=== PATIENT | male | born 1950 | race Caucasian/White ===

== ENCOUNTER 2017-06-03 12:02 | Emergency (ER) | payer OTHER, MEDICARE ==
[~2017-06-03] VITALS: Ht 182.9 cm; Wt 93.4 kg
[~2017-06-03 12:02] MED LIST: ADVAIR 100-501 EACH INH; ADVIL200 MG PO; AMLODIPINE BESYL5 M1 PO; AMLODIPINE10 MG PO; AMOXICILLIN500 M3 PO; ASPIRIN EC81 M1 PO; ATORVASTATIN CA10 MG PO; ATORVASTATIN CA40 M1 PO; BACTRIM DS TAB1 EACH PO; FLEXERIL10 MG PO; FLUTICASONE PRO16 GM NASB; HYDRODIURIL 2525 MG PO; LISINOPRIL40 M1 PO; MULTIVITAMIN1 TAB PO; NAPROSYN375 MG PO; NEURONTIN300 MG PO; NICOTINE PATCH1 EAC3 TOP; NITROGLYCERIN1 EACH TOP; NORFLEX100 MG PO; NORVASC10 M1 PO; OXYCODONE HCL10 M2 PO; OXYCODONE HCL15 M1 PO; PERCOCET 325 MG1 TA2 PO; PERCOCET 325 MG1 TAB PO; PREDNISONE 20MG20 MG PO; PROAIR HFA8.5 GM INH; TAMSULOSIN HCL0.4 M1 PO; TRAMADOL50 MG PO; TRAZODONE HCL100 M1; VITAMIN C1000 M1 PO
[2017-06-03 12:05] VITALS: BP 111/58
[2017-06-03] MEDS ORDERED: FLOMAX0.4 M1 PO (12:45)
[2017-06-03] MEDS ORDERED: AMOXICILLIN875 M1 PO ×2 (12:46→13:13)
[2017-06-03] MEDS ORDERED: BACTRIM DS TAB1 EACH PO ×2 (12:46→13:13)
--- NOTE | 2017-06-03 12:47 | ED SKIN/ALLERGY COMPLAINT ---
History of Present Illness General Chief Complaint: General Adult Stated Complaint: ABSCESS ON FACE Source: patient Exam Limitations: no limitations Vital Signs & Intake/Output Vital Signs & Intake/Output Vital Signs Date Time Temp Pulse Resp B/P B/P Pulse O2 O2 Flow FiO2 Mean Ox Delivery Rate 06/03 1205 98.1 120 20 111/58 97 Room Air Allergies Coded Allergies: NO KNOWN ALLERGIES (NONE 06/03/17) Reconcile Medications Albuterol Sulfate (Proair Hfa) 8.5 GM HFA.AER.AD 2 PUF INH Q6 PRN COPD Amlodipine Besylate (Norvasc) 10 MG TABLET 1 CAP PO DAILY HYPERTENSION Amoxicillin 875 MG TABLET 1 TAB PO BID ABSCESS Amoxicillin 875 MG TABLET 1 TAB PO BID ABSCESS Aspirin (Ecotrin*) 81 MG TABLET.DR 1 TAB PO DAILY HEART/BLOOD (Reported) Atorvastatin Calcium 40 MG TABLET 1 CAP PO DAILY CHOLESTEROL Lisinopril 40 MG TABLET 1 CAP PO DAILY BP Nitroglycerin (Nitroglycerin Patch) 0.4 MG/HOUR PATCH.TD24 1 PAT TOP DAILY CHEST PAIN Please put the patch on for 12 hours only. Then keep off for 12 hours. Oxycodone HCl 15 MG TABLET 1 TAB PO Q8H PAIN (Reported) Sulfamethoxazole/Trimethoprim (Bactrim Ds Tablet) 800 MG-160 MG TABLET 1 TAB PO BID ABSCESS Sulfamethoxazole/Trimethoprim (Bactrim Ds Tablet) 800 MG-160 MG TABLET 1 TAB PO BID ABSCESS Tamsulosin HCl (Flomax) 0.4 MG CAP.ER.24H 0.4 MG PO DAILY BLAD[facility] ( Reported) Triage Note: PT TO ED C/O ABSCESS TO LEFT SIDE OF FACE SINCE TUESDAY 05/30. THINKS HE GOT BIT BY SOMETHING AND THEN SHAVED OVER BITE. AFEBRILE IN TRIAGE. Triage Nurses Notes Reviewed? yes Onset: Abrupt Duration: day(s): Timing: recent history Severity: moderate, severe Location: face No Modifying Factors: none HPI: 67-year-old male comes into the emergency room for further evaluation of left- sided facial pain. Patient reports that he was bitten by something a few days back. He's been experiencing increased swelling and redness and pain left side of his face. Denies any fever chills vomiting. He comes in for further evaluation. Past History Travel History Traveled to [place] past 21 day No Medical History Any Pertinent Medical History? 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 FH: myocardial infarction Hx Contributory? No Review of Systems Review of Systems Constitutional: Reports: no symptoms. EENTM: Reports: no symptoms. Respiratory: Reports: no symptoms. Cardiovascular: Reports: no symptoms. GI: Reports: no symptoms. Genitourinary: Reports: no symptoms. Musculoskeletal: Reports: see HPI. Skin: Reports: see HPI. Neurological/Psychological: Reports: no symptoms. Hematologic/Endocrine: Reports: no symptoms. Immunologic/Allergic: Reports: no symptoms. All Other Systems: Reviewed and Negative Physical Exam Physical Exam General Appearance: well developed/nourished, mild distress Head: atraumatic Eyes: Bilateral: normal appearance. Ears, Nose, Throat: normal ENT inspection, hearing grossly normal Neck: normal inspection Respiratory: no respiratory distress Back: normal inspection Extremities: normal inspection, normal range of motion, no edema Neurologic/Psych: awake, alert, oriented x 3, normal mood/affect Skin: intact, erythema and swelling to left side of face, firm nodule, approximately 3 cm in diameter, open wound with some purulent drainage from the center, Progress Differential Diagnosis: abscess/cellulitis, allergic reaction, contact dermatitis, shingles Plan of Care: Orders Procedure Date/time Status HEAD & NECK CULTURE 06/03 1247 Active Microbiology 06/03 1300 HEAD/NECK: Head/Neck Culture - RECD 06/03 1300 HEAD/NECK: Gram Stain - RECD Departure Departure Disposition: HOME OR SELF CARE Condition: Stable Clinical Impression Primary Impression: Facial abscess Referrals: Salas CORTES,Salas (PCP/Family) Additional Instructions: Take Bactrim and amoxicillin as prescribed. Return in 2 days for wound check. Return sooner if any other concerns worsening symptoms. Please go over all results of today's visit with your primary care doctor. Contact your primary care doctor to let them know you were here in the emergency room. There may be nonspecific findings which may not be related to your visit today here in the emergency room but may require further evaluation and chronic monitoring by your primary care doctor. If you had a laceration today the chance of foreign body always remains. You should follow-up with your primary care doctor for recheck in 3-5 days for a wound check. If you had an x-ray done there is a chance that a fracture could have been missed on initial read and you should follow-up with your primary care doctor for repeat x-rays if symptoms persist. If your blood pressure was elevated here in the emergency room please have rechecked by michel primary care doctor within the next 48. If you were prescribed a narcotic here in the emergency room or any type of controlled substances you're not allowed to drive while taking this medication or operate any type of heavy machinery. Narcotics can make you feel lightheaded dizziness nausea and can cause constipation. You may need to sampler pickup a stool softener. Thank you for choosing [facility] emergency room. Please return to the emergency room immediately if you have any other concerns worsening of symptoms. Departure Forms: Customer Survey General Discharge Information Prescriptions: Current Visit Scripts Sulfamethoxazole/Trimethoprim (Bactrim Ds Tablet) 1 TAB PO BID #20 TAB Amoxicillin 1 TAB PO BID #20 TAB Sulfamethoxazole/Trimethoprim (Bactrim Ds Tablet) 1 TAB PO BID #20 TAB Amoxicillin 1 TAB PO BID #20 TAB Comments 06/03/2017 2:44:07 PM Patient clinically looks well. Patient is in no apparent distress. Patient is nontoxic-appearing. Patient resting comfortably in room. Patient will return in 2 days for packing removal. Procedures Incision and Drainage Site: left side of face Blade Size: 11 I & D Procedure: Yes: betadine prep, sterile drapes applied, sterile dressing applied, wick placed. Progress: 1% lidocaine, 5 mL injected,
== END 2017-06-03 13:18 ==
LOC: ERH 12:02
DX: L02.01 Cutaneous abscess of face (principal)
CPT/HCPCS: 87184; 87070; 87147

== ENCOUNTER 2017-06-05 10:24 | Emergency (ER) | payer OTHER, MEDICARE ==
[~2017-06-05] VITALS: Ht 182.9 cm; Wt 93.4 kg
[~2017-06-05 10:24] MED LIST changes: +AMOXICILLIN875 M1 PO; +FLOMAX0.4 M1 PO
[2017-06-05 11:56] LABS: ABSOLUTE BASOPHIL COUNT 0 /CUMM (0.0-0.2); ABSOLUTE EOSINOPHIL COUNT 0.3 /CUMM (0.0-0.7); ABSOLUTE LYMPH COUNT 1.3 /CUMM (1.2-3.4); ABSOLUTE MONOCYTE COUNT 0.9 /CUMM (0.10-0.60); BASOPHIL % 0 % (0.0-2.0); EOSINOPHIL % 2.5 % (0-5); GRANULOCYTE % 81.3 % (42.2-75.2); HEMATOCRIT 30.8 % (42-52); MEAN CORPUSCULAR HGB CONC 32.2 G/DL (33.0-37.0); MEAN CORPUSCULAR VOLUME 74.4 FL (80.0-94.0); MEAN PLATELET VOLUME 7.9 FL (7.4-10.4); PLATELET COUNT 305 /CUMM (130-400); RBC DISTRIBUTION WIDTH 18.3 % (11.5-14.5); RED BLOOD CELL CT 4.14 /CUMM (4.70-6.10); WHITE BLOOD CELL COUNT 13.5 /CUMM (4.8-10.8)
--- NOTE | 2017-06-05 12:33 | ED GENERAL ADULT ---
History of Present Illness General Chief Complaint: Suture Removal/Wound Recheck Stated Complaint: WOUND CHECK Source: patient Exam Limitations: no limitations Vital Signs & Intake/Output Vital Signs & Intake/Output Vital Signs Date Time Temp Pulse Resp B/P B/P Pulse O2 O2 Flow FiO2 Mean Ox Delivery Rate 06/05 1340 98.9 90 22 94/54 97 06/05 1236 97.5 80 18 100/60 98 06/05 1042 96.2 83 18 91/55 96 Room Air Room Air Allergies Coded Allergies: NO KNOWN ALLERGIES (NONE 06/03/17) Reconcile Medications Albuterol Sulfate (Proair Hfa) 8.5 GM HFA.AER.AD 2 PUF INH Q6 PRN COPD Amlodipine Besylate (Norvasc) 10 MG TABLET 1 CAP PO DAILY HYPERTENSION Amoxicillin 875 MG TABLET 1 TAB PO BID ABSCESS Aspirin (Ecotrin*) 81 MG TABLET.DR 1 TAB PO DAILY HEART/BLOOD (Reported) Atorvastatin Calcium 40 MG TABLET 1 CAP PO DAILY CHOLESTEROL Lisinopril 40 MG TABLET 1 CAP PO DAILY BP Nitroglycerin (Nitroglycerin Patch) 0.4 MG/HOUR PATCH.TD24 1 PAT TOP DAILY CHEST PAIN Please put the patch on for 12 hours only. Then keep off for 12 hours. Oxycodone HCl 15 MG TABLET 1 TAB PO Q8H PAIN (Reported) Sulfamethoxazole/Trimethoprim (Bactrim Ds Tablet) 800 MG-160 MG TABLET 1 TAB PO BID ABSCESS Tamsulosin HCl (Flomax) 0.4 MG CAP.ER.24H 0.4 MG PO DAILY [facility] ( Reported) Triage Note: PT TOLD TO RETURN TODAY FOR 11AM FOR WOUND CHECK OF LEFT FACIAL WOUND, SEEN A COUPLE DAYS AGO BY JOSE ANTONIO MEDINA. Triage Nurses Notes Reviewed? yes Onset: Abrupt Duration: day(s):, constant Timing: recent history Injury Environment: home No Modifying Factors: none HPI: 67-year-old male comes into the emergency room for further evaluation of wound check. Patient had an abscess drained here 2 days ago. He reports that he's been feeling worse at home with increased weakness nausea. Some lightheaded and dizziness feels like he is going to pass out. Denies any chest pain. He reports that the swelling has gone down on his face. Past History Travel History Traveled to [place] past 21 day No Medical History Any Pertinent Medical History? 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 FH: myocardial infarction Hx Contributory? No Review of Systems Review of Systems Constitutional: Reports: see HPI. EENTM: Reports: no symptoms. Respiratory: Reports: no symptoms. Cardiovascular: Reports: no symptoms. GI: Reports: see HPI. Genitourinary: Reports: no symptoms. Musculoskeletal: Reports: no symptoms. Skin: Reports: see HPI. Neurological/Psychological: Reports: no symptoms. Hematologic/Endocrine: Reports: no symptoms. Immunologic/Allergic: Reports: no symptoms. All Other Systems: Reviewed and Negative Physical Exam Physical Exam General Appearance: well developed/nourished, alert, awake Head: OPEN WOUND LEFT FACE Eyes: Bilateral: normal appearance. Ears, Nose, Throat: normal ENT inspection, hearing grossly normal, swelling to left-sided face, drainage, no erythema, decrease in size from other day,, dry mucous membranes Neck: normal inspection Respiratory: normal breath sounds Cardiovascular: regular rate/rhythm Back: normal inspection Extremities: normal inspection Neurologic/Psych: awake, alert, oriented x 3 Skin: intact Core Measures ACS in differential dx? No CVA/TIA Diagnosis: No Sepsis Present: No Sepsis Focused Exam Completed? No Progress Differential Diagnoses I considered the following diagnoses in my evaluation of the patient: Sepsis, abscess, renal failure, electrolyte imbalance, cardiac arrhythmia, [place], Plan of Care: Orders Procedure Date/time Status LACTIC ACID 06/05 1417 Active Add-on Test (ER Only) 06/05 1256 Active EKG 06/05 1234 Active TROPONIN LEVEL 06/05 1120 Complete BLOOD CULTURE 06/05 1117 Active LACTIC ACID 06/05 1117 Complete C-REACTIVE PROTEIN 06/05 1117 Complete COMPREHENSIVE METABOLIC PANEL 06/05 1117 Complete CBC WITHOUT DIFFERENTIAL 06/05 111 Complete Laboratory Tests 06/05/17 1120: Anion Gap 16, Estimated GFR 15 L, BUN/Creatinine Ratio 15.6, Glucose 89, Lactic Acid 1.7, Calcium 8.2 L, Total Bilirubin 0.6, AST 12 L, ALT 17 L, Alkaline Phosphatase 118, Troponin I < 0.01, C-Reactive Prot, Quant 4.3 H, Total Protein 7.1, Albumin 4.3, Globulin 2.8, Albumin/Globulin Ratio 1.5, CBC w Diff NO MAN DIFF REQ, RBC 4.14 L, MCV 74.4 L, MCH 24.0 L, MCHC 32.2 L, RDW 18.3 H, MPV 7.9, Gran % 81.3 H, Lymphocytes % 9.7 L, Monocytes % 6.5, Eosinophils % 2.5, Basophils % 0, Absolute Granulocytes 11.0 H, Absolute Lymphocytes 1.3, Absolute Monocytes 0.9 H, Absolute Eosinophils 0.3, Absolute Basophils 0 Microbiology 06/05 1209 BLOOD: Blood Culture - RECD 06/05 1120 BLOOD: Blood Culture - RECD Initial ED EKG: normal sinus rhythm, rate (79) Departure Departure Disposition: LEFT AGAINST MEDICAL ADVICE Condition: Stable Clinical Impression Primary Impression: Acute renal failure Secondary Impressions: Abscess Referrals: Salas Marina MD (PCP/Family) Additional Instructions: You're leaving AGAINST MEDICAL ADVICE at this time. Please return immediately to Hospital after you take care of of what you need to do an your personal life. You have kidney failure. Your blood pressure is low. It is dangerous to the hospital. Please return immediately to the hospital when you can. Please go over all results of today's visit with your primary care doctor. Contact your primary care doctor to let them know you were here in the emergency room. There may be nonspecific findings which may not be related to your visit today here in the emergency room but may require further evaluation and chronic monitoring by your primary care doctor. If you had a laceration today the chance of foreign body always remains. You should follow-up with your primary care doctor for recheck in 3-5 days for a wound check. If you had an x-ray done there is a chance that a fracture could have been missed on initial read and you should follow-up with your primary care doctor for repeat x-rays if symptoms persist. If your blood pressure was elevated here in the emergency room please have rechecked by michel primary care doctor within the next 48. If you were prescribed a narcotic here in the emergency room or any type of controlled substances you're not allowed to drive while taking this medication or operate any type of heavy machinery. Narcotics can make you feel lightheaded dizziness nausea and can cause constipation. You may need to brass pickler a stool softener. Thank you for choosing [facility] emergency room. Please return to the emergency room immediately if you have any other concerns worsening of symptoms. Departure Forms: Customer Survey General Discharge Information Comments 06/05/2017 2:31:20 PM Patient signed out AGAINST MEDICAL ADVICE because he needs to go home and take care of his dog and then he will return here to the emergency room and be admitted at that time. I explained to him the risks of leaving AGAINST MEDICAL ADVICE. Potentially life-threatening. He will return as soon as possible. I explained to him the danger of his blood pressure being low. He is mentally competent and able to make his own medical decisions. Critical Care Note Critical Care Note Critical Care Time: non-applicable
[2017-06-05 13:40] VITALS: BP 94/54
[2017-06-05] MEDS ORDERED: OMEPRAZOLE40 M1 PO (21:35)
[2017-06-06] MEDS ORDERED: CLOPIDOGREL75 M1 PO (02:16)
== END 2017-06-05 14:07 | disposition left against medical advice (07) ==
LOC: ERH 10:24
PROVIDERS: Physician Assistant Medical
DX: N17.9 Acute kidney failure, unspecified (principal); L02.01 Cutaneous abscess of face; R11.0 Nausea; R42 Dizziness and giddiness; R53.1 Weakness
CPT/HCPCS: 87040; 93005; 93010

== ENCOUNTER 2017-06-05 16:58 | Inpatient (IN) | payer OTHER, MEDICARE ==
[~2017-06-05] VITALS: Ht 182.9 cm; Wt 105.6 kg
--- NOTE | 2017-06-05 17:54 | ED GENERAL ADULT ---
History of Present Illness General Chief Complaint: General Adult Stated Complaint: BACK FOR EVAL Source: patient Exam Limitations: no limitations Vital Signs & Intake/Output Vital Signs & Intake/Output Vital Signs Date Time Temp Pulse Resp B/P B/P Pulse O2 O2 Flow FiO2 Mean Ox Delivery Rate 06/06 0000 Nasal 2.0L Cannula 06/05 2314 Nasal 2.0L Cannula 06/05 2301 98.2 96 20 126/66 92 Room Air 06/05 2243 85 101/58 06/05 2138 98.0 92 18 84/56 96 Room Air 06/05 1859 97.9 85 18 91/53 93 Room Air 06/05 1813 Room Air 06/05 1756 70/50 06/05 1724 98.2 92 20 83/48 92 Room Air Room Air ED Intake and Output 06/06 0000 06/05 1200 Intake Total 1000 Output Total Balance 1000 Intake, IV 1000 Patient 230 lb Weight Weight Bed scale Measurement Method Allergies Coded Allergies: No Known Allergies (06/05/17) Triage Note: PT BACK TO ED FOR ADMISSION FOR RENAL FAILURE. HYPOTENSIVE IN TRIAGE 48 Triage Nurses Notes Reviewed? yes Onset: Abrupt Duration: day(s): Timing: recent history Injury Environment: home No Modifying Factors: none HPI: 67-year-old male comes into the emergency room after leaving AMA earlier because he needed to go home to take care of his dog for low blood pressure and kidney failure. Patient was recently seen here the other day and had an abscess drained on his face. He feels that he's been increasingly weak with lightheaded and dizziness. Comes in for further evaluation. (Santos BRADY,Regan) Reconcile Medications Albuterol Sulfate (Proair Hfa) 8.5 GM HFA.AER.AD 2 PUF INH Q6 PRN COPD Amlodipine Besylate (Norvasc) 10 MG TABLET 1 CAP PO DAILY HYPERTENSION Amoxicillin 875 MG TABLET 1 TAB PO BID ABSCESS Aspirin (Ecotrin*) 81 MG TABLET.DR 1 TAB PO DAILY HEART/BLOOD (Reported) Atorvastatin Calcium 40 MG TABLET 1 CAP PO DAILY CHOLESTEROL Clopidogrel Bisulfate (Clopidogrel) 75 MG TABLET 1 TAB PO DAILY STENT ( Reported) Lisinopril 40 MG TABLET 1 CAP PO DAILY BP Omeprazole 40 MG CAPSULE.DR 1 CAP PO DAILY GERD (Reported) Oxycodone HCl 15 MG TABLET 1 TAB PO Q8H PAIN (Reported) Sulfamethoxazole/Trimethoprim (Bactrim Ds Tablet) 800 MG-160 MG TABLET 1 TAB PO BID ABSCESS Tamsulosin HCl (Flomax) 0.4 MG CAP.ER.24H 0.4 MG PO DAILY [facility] ( Reported) (Liam CORTES,Johnathon Meza) Past History Travel History Traveled to [place] past 21 day No Medical History Any Pertinent Medical History? 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 FH: myocardial infarction Hx Contributory? No (Regan Matos) Review of Systems Review of Systems Constitutional: Reports: see HPI. EENTM: Reports: no symptoms. Respiratory: Reports: no symptoms. Cardiovascular: Reports: no symptoms. GI: Reports: no symptoms. Genitourinary: Reports: no symptoms. Musculoskeletal: Reports: no symptoms. Skin: Reports: see HPI. Neurological/Psychological: Reports: no symptoms. Hematologic/Endocrine: Reports: no symptoms. Immunologic/Allergic: Reports: no symptoms. All Other Systems: Reviewed and Negative (Regan Matos) Physical Exam Physical Exam General Appearance: alert, awake Head: open wound to left side of face, purulent drainage, decrease in size, no erythema, Eyes: Bilateral: normal appearance. Ears, Nose, Throat: hearing grossly normal, dry mucous membranes Neck: normal inspection Respiratory: no respiratory distress Cardiovascular: regular rate/rhythm Back: normal range of motion Neurologic/Psych: awake, alert, oriented x 3 Skin: intact Core Measures ACS in differential dx? No CVA/TIA Diagnosis: No Sepsis Present: No Sepsis Focused Exam Completed? No (Regan Matos) Progress Differential Diagnoses I considered the following diagnoses in my evaluation of the patient: Sepsis, renal failure, electrolyte imbalance, Plan of Care: Orders Procedure Date/time Status Nothing by Mouth 06/06 B Active TROPONIN LEVEL 06/06 0930 Active EKG 06/06 0930 Active TROPONIN LEVEL 06/06 0330 Active EKG 06/06 0330 Active LACTIC ACID 06/06 0030 Active Renal Dialysis Diet 06/05 D Complete Weight 06/05 2312 Active Teach/Educate 06/05 2312 Active Pain Treatment and Response 06/05 2312 Active Nutritional Intake, Monitor 06/05 2312 Active Isolation 06/05 2312 Active Patient Care Conference 06/05 2312 Active Activity/Ambulation 06/05 2312 Active CULTURE,URINE 06/05 2128 Active URINALYSIS 06/05 2128 Complete TROPONIN LEVEL 06/05 2126 Complete LACTIC ACID 06/05 2126 Complete CBC WITHOUT DIFFERENTIAL 06/05 2126 Complete BASIC ELECTROLYTES PLUS BUN&CR 06/05 2126 Complete EKG 06/05 2126 Active Pathway - chart 06/05 2006 Active House Staff 06/05 2006 Active Patient Data 06/05 2007 Active Code Status 06/05 2006 Active Patient Data 06/05 1958 Active Saline Lock 06/05 1932 Active Misc Message 06/05 1932 Active ED Holding Orders 06/05 1932 Active Admit to inpatient 06/05 193 Active Vital Signs 06/05 193 Active Code Status 06/05 1933 Complete Intake & Output 06/05 1859 Active TRC EVALUATION (GEN) 06/05 UNK Active VTE Mechanical Prophylaxis 06/05 UNK Active [place], Insertion/Removal/Asses 06/05 UNK Complete Current Medications Sig/Jonny Start time Last Medication Dose Stop Time Status Admin Atorvastatin Calcium 40 MG 1700 06/06 1700 AC (Lipitor) Aspirin Buffered 81 MG DAILY 06/06 0900 AC (Ecotrin) Clopidogrel Bisulfate 75 MG DAILY 06/06 0900 AC (Plavix) Omeprazole 40 MG DAILY AC 06/06 0700 AC (Prilosec) Sodium Chloride 1,000 ML Q10H 06/05 2315 AC 06/06 (Normal Saline 0.9%) 0210 Heparin Sodium 5,000 UNIT Q8 06/05 2200 AC (Porcine) Acetaminophen 1,000 MG Q6P PRN 06/05 2144 AC 06/05 (Ofirmev) 2014 N/A 1 UNIT (No Carrier) Albuterol Sulfate 2 PUF Q4P PRN 06/05 2144 AC (Ventolin) Oxycodone HCl 15 MG Q8 PRN 06/05 2144 AC 06/06 (Roxicodone) 0210 Acetaminophen 325 MG Q6P PRN 06/05 2014 AC (Tylenol) Laboratory Tests 06/06/17 0330: Troponin I Pending 06/06/17329: Lactic Acid Pending 06/05/172237: Urinalysis LIGHT H, Urine Color YEL, Urine Clarity HAZY H, Urine pH 6.0, Ur Specific [place] 1.025, Urine Protein NEG, Urine Ketones NEG, Urine Nitrite NEG, Urine Bilirubin NEG, Urine Urobilinogen 0.2, Ur Leukocyte Esterase MOD H, Ur Microscopic SEDIMENT EXAMINED, Urine RBC RARE, Urine WBC 25-50 H, Ur Epithelial Cells FEW, Urine Bacteria FEW H, Urine Mucus FEW, Urine Hemoglobin NEG, Urine Glucose NEG 06/05/172229: Anion Gap 11, Estimated GFR 16 L, BUN/Creatinine Ratio 15.7, Lactic Acid 0.8, Troponin I < 0.01, CBC w Diff NO MAN DIFF REQ, RBC 3.38 L, MCV 74.0 L, MCH 23.8 L, MCHC 32.1 L, RDW 19.1 H, MPV 7.9, Gran % 74.1, Lymphocytes % 14.2 L, Monocytes % 8.6, Eosinophils % 2.8, Basophils % 0.3, Absolute Granulocytes 7.5 H, Absolute Lymphocytes 1.4, Absolute Monocytes 0.9 H, Absolute Eosinophils 0.3 , Absolute Basophils 0 Microbiology 06/05 2237 URINE ROUT: Urine Culture - RECD 06/05 2126 URINE ROUT: Urine Culture - CAN Cancelled: Cancelled via OE: Per Decision 06/05 2126 BLOOD: Blood Culture - CAN Cancelled: Cancelled via OE: Duplicate Order 06/05 2126 BLOOD: Blood Culture - CAN Cancelled: Cancelled via OE: Duplicate Order Initial ED EKG: none (done earlier today) (Regan Matos) Departure Departure Disposition: STILL A PATIENT Condition: Stable Referrals: Salas Marina MD (PCP/Family) Departure Forms: Customer Survey General Discharge Information Admission Note Spoke With: Elodia Dewey MD Documentation of Exam: Documentation of any treatments & extenuating circumstances including Concerns Regarding Discharge (functional status, medication knowledge or non-compliance, living conditions, etc.) that warrant an admission rather than observation: IV fluids. Repeat labs. IV antibiotics. Surgery consultation. Renal consultation. Repeat vital signs. Cardiac telemetry. (Regan Matos) Departure Clinical Impression Primary Impression: Acute renal failure Secondary Impressions: Facial abscess, Hypotension, Sepsis, Shock PA/CLINICAL CYTOGENETICIST SCIENTIST Co-Sign Statement Statement: ED Attending supervision documentation- [x] I saw and evaluated the patient. I have also reviewed all the pertinent lab results and diagnostic results. I agree with the findings and the plan of care as documented in the PA's/CLINICAL CYTOGENETICIST SCIENTIST's documentation. 06/06/17, 19:40.... pt with h/o facial abscesses, now with sepsis/acute renal failure/shock... pt resting comfortably at present, improved after appropriate iv fluid bolus, stable for gen med, for iv fluids, supportive measures. [] I have reviewed the ED Record and agree with the PA's/CLINICAL CYTOGENETICIST SCIENTIST's documentation. [] Additions or exceptions (if any) to the PAs/CLINICAL CYTOGENETICIST SCIENTIST's note and plan are summarized below: [] (Liam CORTES,Johnathon Meza) Critical Care Note Critical Care Note Critical Care Time: 30-74 min (35) (Regan Matos)
--- NOTE | 2017-06-05 20:15 | History & Physical ---
Leonel Manriquez MD 06/05/17 2015: General Information and HPI MD Statement: I have seen and personally examined MIMI PARK and documented this H&P. The patient is a 67 year old M who presented with a patient stated chief complaint of [follow up of facial abcess]. Source of Information: patient, old records Exam Limitations: no limitations History of Present Illness: Patient is a 67-year-old male with past medical history of hypertension, hyperlipidemia, COPD, left BKA, CAD status post stent in November 2016 presenting this admission for follow-up of his left facial abscess. Patient states that on 05/28 he started noticing about the left side of his face. States the area started becoming worse and when he was shaving he accidentally nicked the area causing increased swelling and tenderness. Patient started using hydrogen peroxide and cortisone cream on the area to treat it. Patient reports that he continued to get worse and on 06/03 patient was seen in the ED at which point he underwent an incision and drainage and was given antibiotics ( amoxicillin and Bactrim) with recommendation of follow-up in 2 days. Cultures grew MRSA. Patient on day of admission presented for follow-up and was found to have acute kidney failure and hypotension. Patient states that he has been having lightheaded as of the past 1 week and has difficulty focusing. Patient reports that he's been having chest pain since November 2016 hours patient was seen adequate. And was found to have a stress test showing a fixed defect in the inferior wall without ischemia. Patient underwent outpatient cardiac cath with stent placement at [facility]. Patient reports that chest pain alternates between sharp poking sensation and a heavy pressure. Reports the pain comes and goes and that he has some left arm heaviness as. Patient also reports that he has been constipated however is currently on oxycodone 15 mg for chronic pain. Allergies/Medications Allergies: Coded Allergies: No Known Allergies (06/05/17) Past History Travel History Traveled to [place] past 21 day No Medical History Neurological: NONE EENT: NONE Cardiovascular: hypertension, hyperlipidemia Respiratory: COPD, emphysema Gastrointestinal: NONE Hepatic: NONE Renal: NONE Musculoskeletal: LEFT BKA Psychiatric: NONE Endocrine: NONE Blood Disorders: NONE Cancer(s): NONE POSITION CLERK/Reproductive: NONE History of MRSA: No History of VRE: No History of CDIFF: No Surgical History Surgical History: hip replacement (Right sided(2003)), left lower extremity BKA secondary to trauma Past Family/Social History Family History Relations & Conditions if any FATHER, , Age 60+. FH: myocardial infarction Psychosocial History Who Do You Live With? Friend Services at Home: None ETOH Use: denies use Illicit Drug Use: denies illicit drug use Functional Ability Ambulation: [facility] Review of Systems Review of Systems Constitutional: Reports: see HPI. Cardiovascular: Reports: see HPI. Respiratory: Reports: see HPI. GI: Reports: see HPI. Genitourinary: Reports: see HPI. Musculoskeletal: Reports: see HPI. Skin: Reports: see HPI. Exam & Diagnostic Data Last 24 Hrs of Vital Signs/I&O Vital Signs Date Time Temp Pulse Resp B/P B/P Pulse O2 O2 Flow FiO2 Mean Ox Delivery Rate 06/06 0653 98.3 84 18 100/54 94 Nasal Cannula 06/06 0000 Nasal 2.0L Cannula 06/05 2314 Nasal 2.0L Cannula 06/05 2301 98.2 96 20 126/66 92 Room Air 06/05 2243 85 101/58 06/05 2138 98.0 92 18 84/56 96 Room Air 06/05 1859 97.9 85 18 91/53 93 Room Air 06/05 1813 Room Air 06/05 1756 70/50 06/05 1724 98.2 92 20 83/48 92 Room Air Room Air Intake & Output 06/06 0800 06/06 0000 06/05 1600 Intake Total 1000 Output Total Balance 1000 Intake, IV 1000 Patient 230 lb Weight Weight Bed scale Measurement Method Physical Exam General Appearance Alert, Oriented X3, Cooperative, No Acute Distress Skin open tender abscess on left cheek - fluctuant, erythematous and warm to touch Skin Temp/Moisture Exam: Warm/Dry HEENT Mucous Membr. moist/pink Cardiovascular Regular Rate, Normal S1, Normal S2 Lungs Clear to Auscultation, Normal Air Movement Abdomen Normal Bowel Sounds, Soft, No Tenderness Neurological Normal Speech, Strength at 5/5 X4 Ext, Normal Tone, Sensation Intact, Cranial Nerves 3-12 NL Extremities No Clubbing, No Cyanosis, Normal Pulses, No Tenderness/Swelling, left BKA, right lower extremity 3-4+ pitting edema Last 24 Hrs of Labs/Keith: Laboratory Tests 06/06/17 0330: Troponin I < 0.01 06/06/17 0330: Lactic Acid 0.6 L 06/05/172237: Urinalysis LIGHT H, Urine Color YEL, Urine Clarity HAZY H, Urine pH 6.0, Ur Specific [place] 1.025, Urine Protein NEG, Urine Ketones NEG, Urine Nitrite NEG, Urine Bilirubin NEG, Urine Urobilinogen 0.2, Ur Leukocyte Esterase MOD H, Ur Microscopic SEDIMENT EXAMINED, Urine RBC RARE, Urine WBC 25-50 H, Ur Epithelial Cells FEW, Urine Bacteria FEW H, Urine Mucus FEW, Urine Hemoglobin NEG, Urine Glucose NEG 06/05/172229: Anion Gap 11, Estimated GFR 16 L, BUN/Creatinine Ratio 15.7, Lactic Acid 0.8, Troponin I < 0.01, CBC w Diff NO MAN DIFF REQ, RBC 3.38 L, MCV 74.0 L, MCH 23.8 L, MCHC 32.1 L, RDW 19.1 H, MPV 7.9, Gran % 74.1, Lymphocytes % 14.2 L, Monocytes % 8.6, Eosinophils % 2.8, Basophils % 0.3, Absolute Granulocytes 7.5 H, Absolute Lymphocytes 1.4, Absolute Monocytes 0.9 H, Absolute Eosinophils 0.3 , Absolute Basophils 0 Microbiology 06/05 2237 URINE ROUT: Urine Culture - RECD 06/05 2126 URINE ROUT: Urine Culture - CAN Cancelled: Cancelled via OE: Per MD Decision 06/05 2126 BLOOD: Blood Culture - CAN Cancelled: Cancelled via OE: Duplicate Order 06/05 2126 BLOOD: Blood Culture - CAN Cancelled: Cancelled via OE: Duplicate Order Assessment/Plan Assessment: Patient is a 67-year-old male with past medical history of hypertension, hyperlipidemia, COPD, left BKA, CAD status post stent in November 2016 presenting this admission for follow-up of his left facial abscess. Patient will be admitted to the telemetry floor for management of the followin. Facial Abscess- MRSA + 2. Chest pain and palpitations r/o ACS 3. DENIS which is likely mutlifactorial, 2/2 hypotension in setting of infection, drug induced nephroathy with recent bactrim and amoxicillin use, history of contrast with stent in November (no creatinine avaialbe to compare post cardiac catheterization. Plan: Admit to telemetry with continue tele monitoring Cardiology consult with Dr. Blancas Serial EKG and Troponin IV Vancomycin (renal dose) to cover MRSA Follow up blood cultures Gentle IV hydration with NS @ 100cc/hr Follow up urine cultures Follow up urine lytes Continue Aspirin and Plavix Antihypertensive medications held in setting of hypotension and DENIS Avoid nephrotoxic agents Monitor I/O Diet: Heart healthy Code: Full code DVT PPx: Heparin SQ and ALPs As Ranked By This Provider Problem List: 1. Facial abscess 2. Acute renal failure 3. Hypotension 4. Chest pain 5. Palpitations Core Measures/Misc (10/27) Acute Coronary Syndrome ACS Diagnosis: No Congestive Heart Failure Congestive Heart Failure Diagnosis No Cerebrovascular Accident CVA/TIA Diagnosis: No VTE (View Protocol) VTE Risk Factors Age>40 No Mechanical VTE Prophylaxis d/t N/A MechProphylax Ordered No VTE Pharm Prophylaxis d/t NA PharmProphylax ordered Sepsis (View protocol) Sepsis Present: No Rachid Agarwal 06/05/17 2156: Resident Review Statement Resident Statement: examined this patient, discussed with security intern, agreed with security intern, reviewed EMR data (avail), discussed with nursing, discussed with case mgmt, reviewed images, amended to note Other Findings: This a 67-year-old man with past medical history of hypertension, hyperlipidemia , COPD not on home oxygen, status post right hip replacement, left BKA, coronary artery disease status post stent 2017. Patient presented to the emergency department due to left-sided facial swelling and complaining of chest pain. Patient presented to the emergency department on June 03, patient underwent incision and draining and he was discharged on Bactrim and amoxicillin antibiotic. Patient agree present to the emergency department today due to not feeling well with increased weakness nausea. Some lightheaded and dizziness feels like he is going to pass out, but the patient left AMA to take care of his dog and he came back to the emergency department later on the day. Patient states that since last 1-2 weeks he has been noticing lightheadedness, his blood pressure has been running low systolic of 90s and his been noticing left-sided chest pain with on and off heart fluttering. Patient was started on IV vancomycin in the ED as his abscess culture grow MRSA. Also his blood pressure was low, patient received total of 3 L normal saline bolus and his blood pressure improved after that. CAT scan of the head and neck without IV contrast was done that showed There is reticulation and edema throughout the left facial soft tissues extending from the level of the zygoma to the left buccal space in keeping with cellulitis. Physical examination, lab and imaging as above. Problem list: -Left facial abscess -Acute kidney injury that can be due to low blood pressure, antibiotic. -Palpitations with chronic chest pain Plan: - Admit to telemetry floor - Vitals every shift - Serial troponin and EKGs - Continue gentle hydration - Continue vancomycin IV adjust dose per GFR - Obtain urine electrolytes - Follow blood culture done, obtain urinalysis and culture. - Trend lactic acid - Plastic surgery consult in a.m. - Hold the lisinopril, amlodipine, Coreg for patient being hypotensive, continue aspirin and Plavix - Cardiology consult in AM - Heart healthy diet Elodia Dewey 06/06/17 0427: General Information and HPI Allergies/Medications Home Med list Albuterol Sulfate (Proair Hfa) 8.5 GM HFA.AER.AD 2 PUF INH Q6 PRN COPD Amlodipine Besylate (Norvasc) 10 MG TABLET 1 CAP PO DAILY HYPERTENSION Amoxicillin 875 MG TABLET 1 TAB PO BID ABSCESS Aspirin (Ecotrin*) 81 MG TABLET.DR 1 TAB PO DAILY HEART/BLOOD (Reported) Atorvastatin Calcium 40 MG TABLET 1 CAP PO DAILY CHOLESTEROL Clopidogrel Bisulfate (Clopidogrel) 75 MG TABLET 1 TAB PO DAILY STENT ( Reported) Lisinopril 40 MG TABLET 1 CAP PO DAILY BP Omeprazole 40 MG CAPSULE.DR 1 CAP PO DAILY GERD (Reported) Oxycodone HCl 15 MG TABLET 1 TAB PO Q8H PAIN (Reported) Sulfamethoxazole/Trimethoprim (Bactrim Ds Tablet) 800 MG-160 MG TABLET 1 TAB PO BID ABSCESS Tamsulosin HCl (Flomax) 0.4 MG CAP.ER.24H 0.4 MG PO DAILY BLADDER HEALTH ( Reported) Attending MD Review Statement Attending Statement Attending MD Statement: examined this patient, discuss w/resident/PA/NUMERICAL CONTROL LATHE OPERATOR, agreed w/resident/PA/NUMERICAL CONTROL LATHE OPERATOR, reviewed EMR data (avail), reviewed images, amended to note Attending Assessment/Plan: CC: Follow-up for facial abscess PMH: HTN, HLD, COPD, right hip replacement, left BKA, CAD S/P stent in November 2016 Patient was in ER on June 03 for left-sided facial swelling. He had that swelling for 1 week, gradually increasing, initially started with a bug bite and then he shaved on that area so it worsened, he tried to clean it with peroxide but then he noticed that he was developing an abscess on the left side of the face so he came to ER. He underwent I&D at that time and he was suggested to follow-up in 2 days. So he came back today to follow-up on that abscess drainage. Even at home that wound was draining, he was feeling very poorly, endorses mild nausea but no vomiting, no chills or fever. Patient states that since last 1-2 weeks he has been noticing lightheadedness, his blood pressure has been running low systolic of 90s and his been noticing left-sided chest pain with on and off heart fluttering. He is awaiting to follow-up with twill cutter, appointment was tomorrow. He did not actually pass out, any other trauma or neurological weakness. Vitals: Tmax 98.2, pulse 92, RR 20, blood pressure 83/48, saturating 92% on 2 L nasal cannula On exam: A O 3, cooperative, no acute distress, neck supple, JVD normal, no lymphadenopathy, mucosa moist, no focal neurological deficit, right lower leg +2 edema, left BKA, no obvious skin rashes or inflammation CVS: S1-S2, RRR. RS: Clear to auscultate bilaterally. Abdomen: Soft, NT, ND, bowel sounds present. Abscess on left zygomatic area with pus discharge and fluctuation. CXR: Mild central vascular prominence without edema. Hypoexpanded lungs with crowding of the markings at both bases and possible subsegmental atelectasis. Maxillofacial CT without contrast - There is reticulation and edema throughout the left facial soft tissues extending from the level of the zygoma to the left buccal space in keeping with cellulitis. No definite discrete fluid collections though assessment is limited without contrast. - There is a 1 cm soft tissue nodule within the right parotid gland that may reflect an enlarged intraparotid lymph node or a primary parotid lesion such as a pleomorphic adenoma. Assessment and plan 67-year-old male with above-mentioned past medical history presented in ER for persistent left facial abscess with pus discharge. He was in ER on at that time he underwent I&D for that abscess and was discharged on Bactrim and amoxicillin. No labs were drawn at that time and he was suggested to follow-up in 2 days. When he came today labs were drawn it showed leukocytosis with left shift and elevated creatinine to 3.9. His previous known value is 1.3 which was in 2017. Since that time he had undergone PCI. His blood pressure was 70/50 ER and according to patient he has been running low blood pressure since last 1-2 weeks, he is checking every day. He also complains of chest pain and heart flutter on and off more so in last 1-2 weeks. Because of his chest pain and heart flutter we will monitor on telemetry for at least 24 hour, obtain cardiology opinion. Meanwhile will continue vancomycin for his left facial abscess, he is growing MRSA from the pus culture on . His acute kidney injury could be secondary to hypotension, infection or residual of contrast- induced nephropathy, we will gently hydrate him, hold antihypertensives and reevaluate. + Left facial abscess + Acute kidney injury + Palpitations + History of HTN, HLD, COPD, right hip replacement, left BKA, CAD S/P stent in November 2016 - Admit to telemetry - Serial troponin and ECGs - Continue gentle hydration - Continue renally adjusted vancomycin IV - urine electrolytes - Follow blood culture done from ER - Trend lactate - Plastic surgery consult in a.m. - UA and culture - Hold the lisinopril, amlodipine, Coreg for patient being hypotensive, continue aspirin and Plavix - Cardiology consult in AM, for chest pain and heart flutter
--- NOTE | 2017-06-05 21:08 | CT SCAN REPORT ---
CT MAXILLOFACIAL WITHOUT CONTRAST CLINICAL INFORMATION: Left-sided facial swelling. Recent abscess drained. COMPARISON: None available. TECHNIQUE: Multidetector helical imaging was performed in the axial plane with generation of coronal and sagittal reformatted images. FINDINGS: Assessment is limited without contrast. There is reticulation and edema throughout the left facial soft tissues extending from the level of the zygoma to the left buccal space in keeping with cellulitis. No definite discrete fluid collections though assessment is limited without contrast. There is a 1 cm soft tissue nodule within the right parotid gland that may reflect an enlarged intraparotid lymph node or a primary parotid lesion such as a pleomorphic adenoma. Imaged intracranial compartment is unremarkable. Partially imaged cervical spondylosis. There is a small right mastoid effusion. There is a retention cyst versus polyp along the floor the right maxillary sinus. There is chronic traumatic deformity of the lamina papyracea bilaterally. There is leftward deviation of the nasal septum with a leftward directed nasal septal spur. The patient is a edentulous. IMPRESSION: - There is reticulation and edema throughout the left facial soft tissues extending from the level of the zygoma to the left buccal space in keeping with cellulitis. No definite discrete fluid collections though assessment is limited without contrast. - There is a 1 cm soft tissue nodule within the right parotid gland that may reflect an enlarged intraparotid lymph node or a primary parotid lesion such as a pleomorphic adenoma.
[2017-06-05] MEDS ORDERED: OMEPRAZOLE40 M1 PO (21:35)
[2017-06-05 22:47] LABS: ABSOLUTE BASOPHIL COUNT 0 /CUMM (0.0-0.2); ABSOLUTE EOSINOPHIL COUNT 0.3 /CUMM (0.0-0.7); ABSOLUTE GRANULOCYTE CT 7.5 /CUMM (1.4-6.5); ABSOLUTE LYMPH COUNT 1.4 /CUMM (1.2-3.4); ABSOLUTE MONOCYTE COUNT 0.9 /CUMM (0.10-0.60); BASOPHIL % 0.3 % (0.0-2.0); EOSINOPHIL % 2.8 % (0-5); GRANULOCYTE % 74.1 % (42.2-75.2); MEAN CORPUSCULAR HGB 23.8 PG (27.0-31.0); MEAN CORPUSCULAR HGB CONC 32.1 G/DL (33.0-37.0); MEAN PLATELET VOLUME 7.9 FL (7.4-10.4); PLATELET COUNT 218 /CUMM (130-400); RBC DISTRIBUTION WIDTH 19.1 % (11.5-14.5); RED BLOOD CELL CT 3.38 /CUMM (4.70-6.10); WHITE BLOOD CELL COUNT 10.2 /CUMM (4.8-10.8)
[2017-06-05 23:01] VITALS: BP 126/66
--- NOTE | 2017-06-05 23:13 | RADIOLOGY REPORT ---
EXAMINATION: XR PORTABLE CHEST CLINICAL INFORMATION: Cough and wheezing COMPARISON: CT of the chest dated 11/11/2016 TECHNIQUE: Portable AP view of the chest was obtained. FINDINGS: The lungs are hypoexpanded. Heart size is normal. There is some central vascular prominence. There is no pulmonary edema. There is some crowding of the markings at both lung bases which could be related to scarring or subsegmental atelectasis. No focal area of dense consolidation is appreciated. There is no pneumothorax or pleural effusion. Visualized bony structures are unremarkable. IMPRESSION: Mild central vascular prominence without edema. Hypoexpanded lungs with crowding of the markings at both bases and possible subsegmental atelectasis.
[2017-06-06] MEDS ORDERED: CLOPIDOGREL75 M1 PO (02:16)
--- NOTE | 2017-06-06 04:29 | Admission Certification ---
Admission Certification Certification Statement - As attending physician, I certify that at the time of - admission, based on clinical presentation, severity of - symptoms, need for further diagnostic testing and - therapeutic interventions, and risk of adverse outcomes - without in-hospital treatment, in my clinical assessment, - this patient requires an acute hospital stay for a minimum - of two nights or longer. I have also considered psychsocial - factors such as support system, advanced age, financial - issues, cognitive issues, and failed out-patient treatments, - past re-admission history, safety of patient, and lack of - compliance as applicable. Specific rationale supporting this admission is: Facial abscess, acute kidney injury, palpitations
[2017-06-06 06:53] VITALS: BP 100/54
--- NOTE | 2017-06-06 07:26 | PN- Housestaff ---
Az CORTES,Lory 06/06/17 0726: Subjective Follow-up For: 1. Facial Abscess- MRSA + 2. Chest pain and palpitations r/o ACS 3. DENIS Tele-Events Since Last Visit: No overnight events Subjective: Patient was seen and examined at bedside, he continues to complain of chest pain and nausea, he is very frustrated because he is n.p.o. for possible I&D Review of Systems Constitutional: Reports: see HPI. Objective Last 24 Hrs of Vital Signs/I&O Vital Signs Date Time Temp Pulse Resp B/P B/P Pulse O2 O2 Flow FiO2 Mean Ox Delivery Rate 06/06 1018 Nasal 2.0L Cannula 06/06 0800 94 Nasal 2.0L Cannula 06/06 0653 98.3 84 18 100/54 94 Nasal Cannula 06/06 0000 Nasal 2.0L Cannula 06/05 2314 Nasal 2.0L Cannula 06/05 2301 98.2 96 20 126/66 92 Room Air 06/05 2243 85 101/58 06/05 2138 98.0 92 18 84/56 96 Room Air 06/05 1859 97.9 85 18 91/53 93 Room Air 06/05 1813 Room Air 06/05 1756 70/50 06/05 1724 98.2 92 20 83/48 92 Room Air Room Air Intake & Output 06/06 1600 06/06 0800 06/06 0000 Intake Total 700 1000 Output Total 1150 Balance -450 1000 Intake, IV 700 1000 Output, Urine 1150 Patient 230 lb Weight Weight Bed scale Measurement Method Physical Exam General Appearance: Alert, Oriented X3, Cooperative, No Acute Distress HEENT: Atraumatic, PERRLA, EOMI, Mucous Membr. moist/pink, abcess 2 X2 cm on the left cheeck, S/P I and D in the ED, non drainng , with mild swelling surrounding it Neck: Supple, No JVD Cardiovascular: Normal S1, Normal S2, No Murmurs Lungs: Clear to Auscultation Abdomen: Normal Bowel Sounds, Soft, No Tenderness Neurological: Normal Speech Extremities: No Clubbing, No Cyanosis, left BKA, right LE 3+ pitting edema Assessment/Plan Assessment: Patient is a 67-year-old male with past medical history of hypertension, hyperlipidemia, COPD, left BKA, CAD status post stent in November 2016 presenting this admission for follow-up of his left facial abscess. Patient will be admitted to the telemetry floor for management of the followin. Facial Abscess- MRSA + 2. Chest pain and palpitations r/o ACS 3. DENIS Plan: continue tele monitoring Cardiology consult with Dr. Blancas Serial EKG and Troponin ruled out ACS Continue IV Vancomycin (renal dose) to cover MRSA Plastic surgery was placed, and they recommend continuing the current antibiotic regimen, no role for I&D sensitivity is no pus collection noticed on the CT Follow up blood cultures Gentle IV hydration with NS @ 100cc/hr Follow up urine cultures Follow up urine lytes Continue Aspirin and Plavix Antihypertensive medications held in setting of hypotension and DENIS Avoid nephrotoxic agents Monitor I/O Diet: Heart healthy Code: Full code DVT PPx: Heparin SQ and ALPs Problem List: 1. Facial abscess 2. Acute renal failure Pain Ratin Pain Location: Chest, Pain Goal: Remain pain free Pain Plan: [facility] Labs & Rationales: cbc bep Joelle Bar MD 06/06/17 1151: Attending MD Review Statement Attending Statement Attending MD Statement: examined this patient, discuss w/resident/PA/CORE CHECKER, agreed w/resident/PA/CORE CHECKER, reviewed EMR data (avail) Attending Assessment/Plan: 67M PMH HTN, HLD, COPD, right hip replacement, left BKA, CAD S/P stent in November 2016, found to have left facial abscess and cellulitis s/p I&D in ED on 06/03, discharged home from ED on Bactrim and Amoxicillin, returned to ER for wound check, found to be hypotensive and with DENIS and wound cultures growing mRSA. He had complained of a sensation of heart flutter and intermittent chest pain to admitting team, denying these symptoms now. Patient is agitated today. He is hungry and tired of being NPO. He has no pain. Afebrile overnight, WBC normal, BP and creatinine improving with IV fluids. 1. Left facial abscess and cellulitis secondary to mRSA 2. DENIS 3. Hypotension Plan - Continue on telemetry - Continue Vancomycin - Plastic surgery and cardiology consults - Gentle IV hydration - Monitor renal function - Serial EKG and troponin - Continue home medications - DVT PPx
[2017-06-06 09:32] LABS: ABSOLUTE BASOPHIL COUNT 0 /CUMM (0.0-0.2); ABSOLUTE EOSINOPHIL COUNT 0.3 /CUMM (0.0-0.7); ABSOLUTE GRANULOCYTE CT 7.3 /CUMM (1.4-6.5); ABSOLUTE LYMPH COUNT 1.1 /CUMM (1.2-3.4); BASOPHIL % 0.4 % (0.0-2.0); EOSINOPHIL % 3.4 % (0-5); GRANULOCYTE % 74.8 % (42.2-75.2); HEMATOCRIT 26.2 % (42-52); MEAN CORPUSCULAR HGB 23.8 PG (27.0-31.0); MEAN CORPUSCULAR HGB CONC 31.7 G/DL (33.0-37.0); MEAN CORPUSCULAR VOLUME 75.2 FL (80.0-94.0); MEAN PLATELET VOLUME 7.9 FL (7.4-10.4); PLATELET COUNT 262 /CUMM (130-400); RBC DISTRIBUTION WIDTH 18.5 % (11.5-14.5); RED BLOOD CELL CT 3.48 /CUMM (4.70-6.10); WHITE BLOOD CELL COUNT 9.7 /CUMM (4.8-10.8)
[2017-06-06 15:19] VITALS: BP 122/62
--- NOTE | 2017-06-06 17:30 | Cons- Plastic Surgery ---
General Information and HPI Consulting Request Date of Consult: 06/06/17 Requested By: Joelle Bar MD Reason for Consult: Left facial cellulitis Source of Information: patient Exam Limitations: no limitations History of Present Illness: 67-year-old male admitted to [facility] with left facial cellulitus for IV antibiotics. Patient states he was working at his home garden one week ago when he noticed left facial swelling after a bug bite. The site became worse and when he was shaving he accidentally nicked the area causing increased swelling. Patient started using hydrogen peroxide and cortisone cream on the area to treat it. He noticed drainage from infected site. On 06/03 patient was seen at [facility] Emergency Room when an I&D was performed and antibiotics prescibed. Cultures grew MRSA. Patient states there hasa been decreased swelling and drainage from wound site. No fever or chills Allergies/Medications Allergies: Coded Allergies: No Known Allergies (06/05/17) Home Med List: Albuterol Sulfate (Proair Hfa) 8.5 GM HFA.AER.AD 2 PUF INH Q6 PRN COPD Amlodipine Besylate (Norvasc) 10 MG TABLET 1 CAP PO DAILY HYPERTENSION Amoxicillin 875 MG TABLET 1 TAB PO BID ABSCESS Aspirin (Ecotrin*) 81 MG TABLET.DR 1 TAB PO DAILY HEART/BLOOD (Reported) Atorvastatin Calcium 40 MG TABLET 1 CAP PO DAILY CHOLESTEROL Clopidogrel Bisulfate (Clopidogrel) 75 MG TABLET 1 TAB PO DAILY STENT ( Reported) Lisinopril 40 MG TABLET 1 CAP PO DAILY BP Omeprazole 40 MG CAPSULE.DR 1 CAP PO DAILY GERD (Reported) Oxycodone HCl 15 MG TABLET 1 TAB PO Q8H PAIN (Reported) Sulfamethoxazole/Trimethoprim (Bactrim Ds Tablet) 800 MG-160 MG TABLET 1 TAB PO BID ABSCESS Tamsulosin HCl (Flomax) 0.4 MG CAP.ER.24H 0.4 MG PO DAILY BLADDER HEALTH ( Reported) Current Medications: Current Medications Sig/Jonny Start time Last Medication Dose Route Stop Time Status Admin Acetaminophen 1,000 MG Q6P PRN 06/05 2144 AC 06/05 N/A 1 UNIT IV 2015 Acetaminophen 0 .STK-MED ONE 06/05 2057 DC IV Acetaminophen 325 MG Q6P PRN 06/05 2014 AC PO Albuterol Sulfate 2 PUF Q4P PRN 06/05 2144 AC INH Aspirin Buffered 81 MG DAILY 06/06 0900 AC 06/06 PO 1235 Atorvastatin Calcium 40 MG 1700 06/06 1700 AC 06/06 PO 1614 Bisacodyl 5 MG DAILY PRN 06/06 1630 AC 06/06 PO 1714 Clopidogrel Bisulfate 75 MG DAILY 06/06 0900 AC 06/06 PO 1235 Glycerin 2 SPRAY Q2P PRN 06/06 0815 AC 06/06 PO 0959 Heparin Sodium 5,000 UNIT Q8 06/05 2200 AC 06/06 (Porcine) SC 1421 Nicotine 21 MG DAILY 06/06 0900 AC 06/06 TOP 0959 Omeprazole 40 MG DAILY AC 06/06 0700 AC PO Ondansetron HCl 4 MG ONCE ONE 06/06 1630 DC 06/06 IV 06/06 1631 1622 Ondansetron HCl 4 MG ONCE ONE 06/06 0815 DC 06/06 IV 06/06 0816 0819 Oxycodone HCl 15 MG Q8 PRN 06/05 2145 AC 06/06 PO 1546 Sodium Chloride 1,000 ML Q10H 06/05 2315 AC 06/06 IV 1614 Sodium Chloride 1,000 ML BOLUS ONE 06/05 2100 DC 06/05 IV 06/05 2159 2107 Sodium Chloride 1,000 ML ONCE ONE 06/05 1945 DC 06/05 IV 06/06 0224 2017 Sodium Chloride 1,000 ML BOLUS ONE 06/05 1800 DC 06/05 IV 06/05 1859 1807 Vancomycin HCl 1,500 MG 1930 06/06 1930 AC Sodium Chloride 250 ML IV Vancomycin HCl 0 .STK-MED ONE 06/05 1850 DC .ROUTE Vancomycin HCl 1,250 MG ONCE ONE 06/05 1830 DC 06/05 Sodium Chloride 250 ML IV 06/05 1929 1858 Past History Medical History Blood Transfusion Hx: Yes Neurological: NONE EENT: NONE Cardiovascular: hypertension, hyperlipidemia Respiratory: COPD, emphysema Gastrointestinal: NONE Hepatic: NONE Renal: NONE Musculoskeletal: LEFT BKA Psychiatric: NONE Endocrine: NONE Blood Disorders: NONE Cancer(s): NONE MENTAL HEALTH NURSE/Reproductive: NONE Surgical History Pertinent Surgical History: hip replacement (Right sided(2003)), left lower extremity BKA secondary to trauma Family History Relations & Conditions If Any: FATHER, , Age 60+. FH: myocardial infarction Psychosocial History Where Do You Live? Home Who Do You Live With? Friend Services at Home: None Smoking Status: Current Everyday Smoker ETOH Use: denies use Illicit Drug Use: denies illicit drug use Functional Ability Ambulation: [facility] Exam & Diagnostic Data Vital Signs and I&O Vital Signs Date Time Temp Pulse Resp B/P B/P Pulse O2 O2 Flow FiO2 Mean Ox Delivery Rate 06/06 1600 93 Nasal 2.0L Cannula 06/06 1519 98.4 97 20 122/62 93 Nasal Cannula 06/06 1018 Nasal 2.0L Cannula 06/06 0800 94 Nasal 2.0L Cannula 06/06 0653 98.3 84 18 100/54 94 Nasal Cannula 06/06 0000 Nasal 2.0L Cannula 06/05 2314 Nasal 2.0L Cannula 06/05 2301 98.2 96 20 126/66 92 Room Air 06/05 2243 85 101/58 06/05 2138 98.0 92 18 84/56 96 Room Air 06/05 1859 97.9 85 18 91/53 93 Room Air 06/05 1813 Room Air 06/05 1756 70/50 06/05 1724 98.2 92 20 83/48 92 Room Air Room Air Intake & Output 06/06 1600 06/06 0800 06/06 0000 06/05 1600 06/05 0800 06/05 0000 Intake Total 0909 139 1172 Output Total 350 1150 Balance 810 -450 1000 Intake, IV 073 200 7260 Intake, Oral 560 Number 0 Bowel Movements Output, Urine 350 1150 Patient 230 lb Weight Weight Bed scale Measurement Method Physical Exam General Appearance: well developed/nourished, comfortable Skin: Left facial swelling, 1 cm x 1cm open wound, no active drainage, non- tender, excoriated skin, no area of fluctuance Imaging Results: CT of face 06.05.17-left facial edema, no abscess collection Assessment/Plan Assessment/Plan Left facial cellulitis -No surgical intervention warranted at this time -Local wound care with bacitracin to central portion of open wound daily -Warm compresses -HOB elevated -Antibiotics -Follow-up 1 week after discharge -Plan discussed with patient, medical and nursing team Other Findings/Comments: NA Consult Acknowledgment - Thank you for your consult request. Attending MD Review Statement Attending Statement Attending MD Statement: examined this patient, discuss w/resident/PA/EXTRACTION OPERATOR, discussed w/nursing
--- NOTE | 2017-06-06 21:16 | Cons- Cardiology ---
General Information and HPI Consulting Request Date of Consult: 06/06/17 Requested By: Joelle Bar MD History of Present Illness: Cristóbal is a 67 year old male with history of hypertension, dyslipidemia, tobacco abuse and a family history of premature coronary artery disease. He is now status post PCI of his right coronary artery for a 70% proximal stenosis. Minimal luminal iregularities were also noted in the distal LAD and his EF was normal at 60%. He initially had complete resolution of his discomfort but a couple months ago noted recurrent discomfort. The discomfort is worse with physical exertion. The patient presented to the hospital with facial discomfort related to a left facial abcess that was treated with Bactrim. He is now noted to have an acute rise in his creatinine to 3.7. His echo showed a normal EF of 65% with mild LVH, trace MR and mild to moderate AI. Allergies/Medications Allergies: Coded Allergies: No Known Allergies (06/05/17) Home Med List: Albuterol Sulfate (Proair Hfa) 8.5 GM HFA.AER.AD 2 PUF INH Q6 PRN COPD Amlodipine Besylate (Norvasc) 10 MG TABLET 1 CAP PO DAILY HYPERTENSION Amoxicillin 875 MG TABLET 1 TAB PO BID ABSCESS Aspirin (Ecotrin*) 81 MG TABLET.DR 1 TAB PO DAILY HEART/BLOOD (Reported) Atorvastatin Calcium 40 MG TABLET 1 CAP PO DAILY CHOLESTEROL Clopidogrel Bisulfate (Clopidogrel) 75 MG TABLET 1 TAB PO DAILY STENT ( Reported) Lisinopril 40 MG TABLET 1 CAP PO DAILY BP Omeprazole 40 MG CAPSULE.DR 1 CAP PO DAILY GERD (Reported) Oxycodone HCl 15 MG TABLET 1 TAB PO Q8H PAIN (Reported) Sulfamethoxazole/Trimethoprim (Bactrim Ds Tablet) 800 MG-160 MG TABLET 1 TAB PO BID ABSCESS Tamsulosin HCl (Flomax) 0.4 MG CAP.ER.24H 0.4 MG PO DAILY BLADDER HEALTH ( Reported) Review of Systems Review of Systems: Left BKA related to trauma. 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 FH: myocardial infarction Psychosocial History Where Do You Live? Home Who Do You Live With? Friend Services at Home: None Smoking Status: Current Everyday Smoker ETOH Use: denies use Illicit Drug Use: denies illicit drug use Functional Ability Ambulation: [facility] Exam & Diagnostic Data Vital Signs and I&O Vital Signs Date Time Temp Pulse Resp B/P B/P Pulse O2 O2 Flow FiO2 Mean Ox Delivery Rate 06/06 1600 93 Nasal 2.0L Cannula 06/06 1519 98.4 97 20 122/62 93 Nasal Cannula 06/06 1018 Nasal 2.0L Cannula 06/06 0800 94 Nasal 2.0L Cannula 06/06 0653 98.3 84 18 100/54 94 Nasal Cannula 06/06 0000 Nasal 2.0L Cannula 06/05 2314 Nasal 2.0L Cannula 06/05 2301 98.2 96 20 126/66 92 Room Air 06/05 2243 85 101/58 06/05 2138 98.0 92 18 84/56 96 Room Air Intake & Output 06/06 1600 06/06 0800 06/06 0000 06/05 1600 06/05 0800 06/05 0000 Intake Total 5579 352 3276 Output Total 350 1150 Balance 810 -450 1000 Intake, IV 590 191 7515 Intake, Oral 560 Number 0 Bowel Movements Output, Urine 350 1150 Patient 230 lb Weight Weight Bed scale Measurement Method Physical Exam: General: WD/WN male in NAD; alert and oriented x 3 HEENT: NC/AT, PERRL, EOMI Neck: no JVD, no carotid bruit Heart: RRR with 3/6 systolic murmur Lungs: clear bilaterally Abdomen: soft, NT, +ve bowel sounds Extremities: no edema, Left BKA Assessment/Plan Assessment/Plan * This patient has symptoms very suggestive of myocardial ischemia. The patient is in the window period for in stent restenosis and I am suspicious that his RCA has narrowed. Unfortunately, this patient is not currently a very good candidate for cardiac catheterization due to his acute renal insufficiency. We will pursue medical therapy for now. Begin a NTG patch at 0.4mg/hr. Continue aspirin and Plavix. * This patient has an acute rise in creatinine. Would check a post void residual and evalutate for obstruction. The patient may have some decrease in renal function from Bactrim and check to see if he was using NSAIDs for pain. Obtain a renal consult. Consult Acknowledgment - Thank you for your consult request.
[2017-06-06 23:52] VITALS: BP 124/58
[2017-06-07 06:53] VITALS: BP 120/66
[2017-06-07 08:30] LABS: ABSOLUTE BASOPHIL COUNT 0 /CUMM (0.0-0.2); ABSOLUTE EOSINOPHIL COUNT 0.3 /CUMM (0.0-0.7); ABSOLUTE GRANULOCYTE CT 5.4 /CUMM (1.4-6.5); ABSOLUTE LYMPH COUNT 1.2 /CUMM (1.2-3.4); ABSOLUTE MONOCYTE COUNT 0.9 /CUMM (0.10-0.60); BASOPHIL % 0.3 % (0.0-2.0); EOSINOPHIL % 3.5 % (0-5); GRANULOCYTE % 69.4 % (42.2-75.2); HEMATOCRIT 23.7 % (42-52); MEAN CORPUSCULAR HGB 23.9 PG (27.0-31.0); MEAN CORPUSCULAR HGB CONC 31.8 G/DL (33.0-37.0); PLATELET COUNT 225 /CUMM (130-400); RBC DISTRIBUTION WIDTH 19.3 % (11.5-14.5); RED BLOOD CELL CT 3.16 /CUMM (4.70-6.10); WHITE BLOOD CELL COUNT 7.8 /CUMM (4.8-10.8)
--- NOTE | 2017-06-07 08:47 | PN- Housestaff ---
Sourav CORTES,Laureen 06/07/17 0847: Subjective Follow-up For: left facial abscess denis palpitations anemia Tele-Events Since Last Visit: nsr 81-90 Subjective: patient states he feels better than yesterday but feels weak. Notes pain in the left face at a level of 4/10. Patient notes nausea later in the day. Review of Systems Constitutional: Reports: weakness. Cardiovascular: Reports: no symptoms. Respiratory: Reports: no symptoms. Gastrointestinal: Reports: nausea. Genitourinary: Reports: no symptoms. Skin: Reports: lesions. Objective Last 24 Hrs of Vital Signs/I&O Vital Signs Date Time Temp Pulse Resp B/P B/P Pulse O2 O2 Flow FiO2 Mean Ox Delivery Rate 06/07 2230 98.2 87 18 130/60 94 Room Air 06/07 1600 94 Nasal 2.0L Cannula 06/07 1400 98.0 105 20 120/60 96 06/07 0653 98.4 83 20 120/66 95 Nasal Cannula Intake & Output 06/08 0800 06/08 0000 06/07 1600 Intake Total 250 1280 Output Total 625 400 Balance -375 880 Intake, IV 250 800 Intake, Oral 480 Number 1 Bowel Movements Output, Urine 625 400 Patient 224 lb Weight Physical Exam General Appearance: Alert, Oriented X3, Cooperative, Mild Distress Skin: No Rashes, left facial abscess 1 inch by 1 inch on cheek, mild erythema surrounding Skin Temp/Moisture Exam: Warm/Dry Sepsis Skin Exam (color): Normal for Ethnicity HEENT: Atraumatic, EOMI, Mucous Membr. moist/pink Neck: Supple, No JVD Cardiovascular: Regular Rate, Normal S1, No Murmurs Lungs: Clear to Auscultation, Normal Air Movement Abdomen: Normal Bowel Sounds, Soft, No Tenderness Current Medications: Current Medications Sig/Jonny Start time Last Medication Dose Route Stop Time Status Admin Acetaminophen 1,000 MG Q6P PRN 06/05 2144 AC 06/05 N/A 1 UNIT IV 2014 Acetaminophen 325 MG Q6P PRN 06/05 2014 AC 06/08 PO 0022 Albuterol Sulfate 2 PUF Q4P PRN 06/05 2144 AC INH Aspirin Buffered 81 MG DAILY 06/06 0900 AC 06/07 PO 0931 Atorvastatin Calcium 40 MG 1700 06/06 1700 AC 06/07 PO 1757 Bacitracin 1 LATESHA DAILY 06/06 1739 AC 06/07 TOP 0932 Bisacodyl 10 MG ONCE ONE 06/07 2030 DC 06/07 AK 06/07 203 204 Bisacodyl 5 MG DAILY PRN 06/06 1630 AC 06/07 PO 1354 Clopidogrel Bisulfate 75 MG DAILY 06/06 0900 AC 06/07 PO 0931 Glycerin 2 SPRAY Q2P PRN 06/06 0815 AC 06/06 PO 0959 Heparin Sodium 5,000 UNIT Q8 06/05 2200 AC 06/07 (Porcine) SC 204 Nicotine 21 MG DAILY 06/06 0900 AC 06/07 TOP 0931 Nitroglycerin 0.4 MG DAILY 06/07 0900 AC 06/07 TOP 0931 Omeprazole 40 MG DAILY AC 06/06 0700 AC 06/07 PO 0602 Ondansetron HCl 4 MG Q6P PRN 06/07 1815 AC IV Ondansetron HCl 4 MG ONCE ONE 06/07 1230 DC 06/07 IV 06/07 1231 1232 Oxycodone HCl 15 MG Q8 PRN 06/05 2145 AC 06/07 PO 1808 Sodium Chloride 1,000 ML Q10H 06/05 2315 DC 06/07 IV 0247 Vancomycin HCl 1,500 MG 1930 06/06 193 AC 06/07 Sodium Chloride 250 ML IV 2027 Last 24 Hrs of Lab/Keith Results Last 24 Hrs of Labs/Mics: Laboratory Tests 06/07/17 1825: CBC w Diff NO MAN DIFF REQ, RBC 3.15 L, MCV 75.2 L, MCH 24.0 L, MCHC 32.0 L, RDW 18.8 H, MPV 7.7, Gran % 69.6, Lymphocytes % 14.4 L, Monocytes % 11.9 H, Eosinophils % 3.8, Basophils % 0.3, Absolute Granulocytes 5.8, Absolute Lymphocytes 1.2, Absolute Monocytes 1.0 H, Absolute Eosinophils 0.3, Absolute Basophils 0 06/07/17 0625: Anion Gap 11, Estimated GFR 51 L, BUN/Creatinine Ratio 21.4, CBC w Diff NO MAN DIFF REQ, RBC 3.16 L, MCV 75.0 L, MCH 23.9 L, MCHC 31.8 L, RDW 19.3 H, MPV 8.0, Gran % 69.4, Lymphocytes % 15.0 L, Monocytes % 11.8 H, Eosinophils % 3.5, Basophils % 0.3, Absolute Granulocytes 5.4, Absolute Lymphocytes 1.2, Absolute Monocytes 0.9 H, Absolute Eosinophils 0.3, Absolute Basophils 0 Assessment/Plan Assessment: Patient is a 67-year-old male with past medical history of hypertension, hyperlipidemia, COPD, left BKA, CAD status post stent in November 2016 presenting this admission for follow-up of his left facial abscess. Of note he is in the windown for instent rethrombosis. Patient is being followed in telemetry for: 1. Facial Abscess- MRSA + 2. Chest pain and palpitations r/o ACS 3. DENIS 4. anemia Plan: continue tele monitoring Cardiology consult with Dr. Blancas Serial EKG and Troponin ruled out ACS As per cardio he is not a candidate for cath due to DENIS - today Cr improved greatly from 2.8 to 1.4. Once resolved he would be able to get a cath. He also may be able to do stress test as well. Continue IV Vancomycin (renal dose) to cover MRSA. LIkely dc on clindamycin when ready. Plastic surgery was placed, and they recommend continuing the current antibiotic regimen, no role for I&D sensitivity is no pus collection noticed on the CT Follow up blood cultures Gentle IV hydration with NS @ 100cc/hr Follow up urine cultures Continue Aspirin and Plavix Antihypertensive medications held in setting of hypotension and DENIS Nitro patch Avoid nephrotoxic agents Monitor I/O Repeat cbc as Hb found to be 7.5 this morning. With his history and comorbidities, goal should be 8 for the next reading. Diet: Heart healthy Code: Full code DVT PPx: Heparin SQ and ALPs Problem List: 1. Facial abscess 2. Acute renal failure Pain Ratin Pain Location: left face Pain Goal: Pain 4 or less Pain Plan: pathway Tomorrow's Labs & Rationales: cbc bep Dilip Ellison MD 06/07/17 1139: Attending MD Review Statement Attending Statement Attending MD Statement: examined this patient, discuss w/resident/PA/INSPECTING ENGINEER, agreed w/resident/PA/INSPECTING ENGINEER, discussed with nursing Attending Assessment/Plan: 67M PMH HTN, HLD, COPD, right hip replacement, left BKA, CAD S/P stent in November 2016, found to have left facial abscess and cellulitis s/p I&D in ED on 06/03, discharged home from ED on Bactrim and Amoxicillin, returned to ER for wound check, found to be hypotensive and with DENIS and wound cultures growing mRSA. He had complained of a sensation of heart flutter and intermittent chest pain to admitting team, denying these symptoms now. Patient's agitation is better. Tolerating diet. He has no pain. Afebrile overnight, WBC normal, BP and creatinine improving with IV fluids. 1. Left facial abscess and cellulitis secondary to MRSA 2. DENIS - resolving 3. Hypotension 4. Unstable angina - symptoms suggestive of Myocardial ischemia Plan - Continue on telemetry - Continue IV Vancomycin - Plastic surgery and cardiology consults - Monitoring renal function - Serial EKG and troponin - Continue home medications - DVT PPx
[2017-06-07 14:00] VITALS: BP 120/60
--- NOTE | 2017-06-07 14:09 | PN- Cardiology ---
Subjective Subjective: , Patient is doing better. He denies any cardiac symptoms. Left facial abscess improving on antibiotics. Objective Vital Signs and I&Os Vital Signs Date Time Temp Pulse Resp B/P B/P Pulse O2 O2 Flow FiO2 Mean Ox Delivery Rate 06/07 0653 98.4 83 20 120/66 95 Nasal Cannula 06/07 0000 Nasal 2.0L Cannula 06/06 2352 98.2 94 20 124/58 94 Nasal Cannula 06/06 1600 93 Nasal 2.0L Cannula 06/06 1519 98.4 97 20 122/62 93 Nasal Cannula Intake & Output 06/07 1600 06/07 0800 06/07 0000 06/06 1600 06/07 0700 06/06 0000 Intake Total 486 337 3602 700 1000 Output Total 850 5372 098 9658 Balance -150 -550 810 -450 1000 Intake, IV 700 550 706 116 9001 Intake, Oral 300 560 Number 0 0 Bowel Movements Output, Urine 850 0155 183 1780 Patient 233 lb 230 lb Weight Weight Bed scale Bed scale Measurement Method Physical Exam: General Appearance: well developed/nourished, alert, awake, oriented Head: normal, improving left facial abscess HEENT: Normal Neck: supple, JVP normal, carotid upstrokes normal bilaterally, no masses or thyromegaly Respiratory: chest non-tender, clear to auscultation and percussion bilaterally Cardiovascular: regular rate/rhythm, normal S1, S2, 1/6 systolic murmur Abdomen: normal bowel sounds, soft, non-tender Extremities: normal inspection, no edema Vascular: Pulses are 2+ and equal bilaterally Neurologic: Grossly normal/nonfocal Current Medications: Current Medications Sig/Jonny Start time Last Medication Dose Route Stop Time Status Admin Acetaminophen 1,000 MG Q6P PRN 06/05 2144 06/05 N/A 1 UNIT IV 2015 Acetaminophen 325 MG Q6P PRN 06/05 2014 AC PO Al Hydroxide/Mg 30 ML .STK-MED ONE 06/06 2053 DC Hydroxide PO 06/06 2054 Al Hydroxide/Mg 30 ML ONCE ONE 06/06 2029 DC 06/06 Hydroxide PO 06/06 Albuterol Sulfate 2 PUF Q4P PRN 06/05 2144 AC INH Aspirin Buffered 81 MG DAILY 06/06 0900 AC 06/07 PO 0931 Atorvastatin Calcium 40 MG 1700 06/06 1700 AC 06/06 PO 1614 Bacitracin 1 LATESHA DAILY 06/06 1739 AC 06/07 TOP 0932 Bisacodyl 5 MG DAILY PRN 06/06 1630 AC 06/07 PO 1354 Clopidogrel Bisulfate 75 MG DAILY 06/06 0900 AC 06/07 PO 0931 Glycerin 2 SPRAY Q2P PRN 06/06 0815 AC 06/06 PO 0959 Heparin Sodium 5,000 UNIT Q8 06/05 2200 AC 06/07 (Porcine) SC 1354 Nicotine 21 MG DAILY 06/06 0900 AC 06/07 TOP 0931 Nitroglycerin 0.4 MG DAILY 06/07 0900 AC 06/07 TOP 0931 Omeprazole 40 MG DAILY AC 06/06 0700 AC 06/07 PO 0602 Ondansetron HCl 4 MG ONCE ONE 06/07 1230 DC 06/07 IV 06/07 1231 1232 Ondansetron HCl 4 MG ONCE ONE 06/06 1630 DC 06/06 IV 06/06 1631 1622 Oxycodone HCl 15 MG Q8 PRN 06/05 2145 AC 06/07 PO 0941 Senna 187 MG ONCE ONE 06/06 2030 DC 06/06 PO 06/06 2031 2207 Sodium Chloride 1,000 ML Q10H 06/05 2315 DC 06/07 IV 0247 Trimethobenzamide HCl 200 MG ONCE ONE 06/06 1930 DC 06/06 IM 06/06 193 193 Vancomycin HCl 1,500 MG 06/06 AC 06/06 Sodium Chloride 250 ML IV 210 Results Last 48 Hrs of Labs/Mics: Laboratory Tests 06/07/17 0625: Anion Gap 11, Estimated GFR 51 L, BUN/Creatinine Ratio 21.4, CBC w Diff NO MAN DIFF REQ, RBC 3.16 L, MCV 75.0 L, MCH 23.9 L, MCHC 31.8 L, RDW 19.3 H, MPV 8.0, Gran % 69.4, Lymphocytes % 15.0 L, Monocytes % 11.8 H, Eosinophils % 3.5, Basophils % 0.3, Absolute Granulocytes 5.4, Absolute Lymphocytes 1.2, Absolute Monocytes 0.9 H, Absolute Eosinophils 0.3, Absolute Basophils 0 06/06/17 1940: Vancomycin Trough 5.2 L 06/06/17 0820: Troponin I Cancelled 06/06/17 0820: Anion Gap 14, Estimated GFR 23 L, BUN/Creatinine Ratio 17.1, Troponin I < 0.01, CBC w Diff NO MAN DIFF REQ, RBC 3.48 L, MCV 75.2 L, MCH 23.8 L, MCHC 31.7 L, RDW 18.5 H, MPV 7.9, Gran % 74.8, Lymphocytes % 11.6 L, Monocytes % 9.8 H, Eosinophils % 3.4, Basophils % 0.4, Absolute Granulocytes 7.3 H, Absolute Lymphocytes 1.1 L, Absolute Monocytes 1.0 H, Absolute Eosinophils 0.3, Absolute Basophils 0 06/06/17 0330: Troponin I < 0.01 06/06/17329: Lactic Acid 0.6 L 06/05/172237: Urinalysis LIGHT H, Urine Color YEL, Urine Clarity HAZY H, Urine pH 6.0, Ur Specific [place] 1.025, Urine Protein NEG, Urine Ketones NEG, Urine Nitrite NEG, Urine Bilirubin NEG, Urine Urobilinogen 0.2, Ur Leukocyte Esterase MOD H, Ur Microscopic SEDIMENT EXAMINED, Urine RBC RARE, Urine WBC 25-50 H, Ur Epithelial Cells FEW, Urine Bacteria FEW H, Urine Mucus FEW, Urine Hemoglobin NEG, Urine Glucose NEG 06/05/172229: Anion Gap 11, Estimated GFR 16 L, BUN/Creatinine Ratio 15.7, Lactic Acid 0.8, Troponin I < 0.01, CBC w Diff NO MAN DIFF REQ, RBC 3.38 L, MCV 74.0 L, MCH 23.8 L, MCHC 32.1 L, RDW 19.1 H, MPV 7.9, Gran % 74.1, Lymphocytes % 14.2 L, Monocytes % 8.6, Eosinophils % 2.8, Basophils % 0.3, Absolute Granulocytes 7.5 H, Absolute Lymphocytes 1.4, Absolute Monocytes 0.9 H, Absolute Eosinophils 0.3 , Absolute Basophils 0 Microbiology 06/05 2237 URINE ROUT: Urine Culture - COMP Assessment/Plan Assessment/Plan Assessment: 1. Left facial abscess 2. Chest pain syndrome 3. History of coronary artery disease, status post right coronary stent 4. Acute renal insufficiency-improving, creatinine 1.4 today 5. Palpitations 6. Anemia Recommendations: -Continue current management as per the medical team. -Continue antibiotics, transition to oral antibiotics when appropriate -Continue telemetry monitoring for another 24 hours -As per Dr. Blancas, the plan is to pursue either outpatient stress testing or possible repeat cardiac catheterization depending on the patient's renal function. Continue telemetry? Yes
[2017-06-07 19:06] LABS: ABSOLUTE BASOPHIL COUNT 0 /CUMM (0.0-0.2); ABSOLUTE EOSINOPHIL COUNT 0.3 /CUMM (0.0-0.7); ABSOLUTE GRANULOCYTE CT 5.8 /CUMM (1.4-6.5); ABSOLUTE LYMPH COUNT 1.2 /CUMM (1.2-3.4); BASOPHIL % 0.3 % (0.0-2.0); EOSINOPHIL % 3.8 % (0-5); GRANULOCYTE % 69.6 % (42.2-75.2); HEMATOCRIT 23.7 % (42-52); MEAN CORPUSCULAR VOLUME 75.2 FL (80.0-94.0); MEAN PLATELET VOLUME 7.7 FL (7.4-10.4); PLATELET COUNT 244 /CUMM (130-400); RBC DISTRIBUTION WIDTH 18.8 % (11.5-14.5); RED BLOOD CELL CT 3.15 /CUMM (4.70-6.10); WHITE BLOOD CELL COUNT 8.4 /CUMM (4.8-10.8)
[2017-06-07 22:30] VITALS: BP 130/60
[2017-06-08 06:30] VITALS: BP 128/68
[2017-06-08 07:50] LABS: ABSOLUTE BASOPHIL COUNT 0 /CUMM (0.0-0.2); ABSOLUTE EOSINOPHIL COUNT 0.3 /CUMM (0.0-0.7); ABSOLUTE GRANULOCYTE CT 5.7 /CUMM (1.4-6.5); ABSOLUTE LYMPH COUNT 1.1 /CUMM (1.2-3.4); BASOPHIL % 0.3 % (0.0-2.0); EOSINOPHIL % 4.2 % (0-5); GRANULOCYTE % 69.3 % (42.2-75.2); HEMATOCRIT 25.3 % (42-52); MEAN CORPUSCULAR HGB 24.3 PG (27.0-31.0); MEAN CORPUSCULAR HGB CONC 31.8 G/DL (33.0-37.0); MEAN CORPUSCULAR VOLUME 76.5 FL (80.0-94.0); MEAN PLATELET VOLUME 7.9 FL (7.4-10.4); PLATELET COUNT 226 /CUMM (130-400); RBC DISTRIBUTION WIDTH 19.4 % (11.5-14.5); RED BLOOD CELL CT 3.31 /CUMM (4.70-6.10); WHITE BLOOD CELL COUNT 8.2 /CUMM (4.8-10.8)
--- NOTE | 2017-06-08 08:38 | PN- Housestaff ---
Astrid CORTES,Lupillo 06/08/17 0838: Subjective Follow-up For: left facial abscess acute kidney injury LE edema Tele-Events Since Last Visit: sinus rhythm HR 80s-90s Subjective: patient complaining of abdominal pain, dysuria, constipation and lower extremity edema Review of Systems Constitutional: Reports: see HPI. Objective Last 24 Hrs of Vital Signs/I&O Vital Signs Date Time Temp Pulse Resp B/P B/P Pulse O2 O2 Flow FiO2 Mean Ox Delivery Rate 06/08 1400 98.3 91 20 154/70 97 Nasal 3.0L Cannula 06/08 0800 98 Nasal 2.0L Cannula 06/08 0630 98.4 85 18 128/68 95 Room Air 06/08 0000 Nasal 2.0L Cannula 06/07 2230 98.2 87 18 130/60 94 Room Air Intake & Output 06/08 1600 06/08 0800 06/08 0000 Intake Total 850 600 250 Output Total 475 625 Balance 850 125 -375 Intake, IV 250 600 250 Intake, Oral 600 Number 1 1 Bowel Movements Output, Urine 475 625 Patient 101.406 kg Weight Physical Exam General Appearance: Alert, Oriented X3, Cooperative, No Acute Distress Neck: Supple, No JVD Cardiovascular: Regular Rate, Normal S1, Normal S2, No Murmurs Lungs: Clear to Auscultation, Normal Air Movement Abdomen: Normal Bowel Sounds, Soft, No Tenderness, No Masses Extremities: L BKA, 2+ RLE pitting edema Current Medications: Current Medications Sig/Jonny Start time Last Medication Dose Route Stop Time Status Admin Acetaminophen 325 MG .STK-MED ONE 06/08 0014 DC PO 06/08 001 Acetaminophen 1,000 MG Q6P PRN 06/05 2144 AC 06/05 N/A 1 UNIT IV 2014 Acetaminophen 325 MG Q6P PRN 06/05 2014 AC 06/08 PO 0022 Albuterol Sulfate 2 PUF Q4P PRN 06/05 214 AC INH Aspirin Buffered 81 MG DAILY 06/06 0900 AC 06/08 PO 1044 Atorvastatin Calcium 40 MG 1700 06/06 1700 AC 06/07 PO 1757 Bacitracin 1 LATESHA DAILY 06/06 1739 AC 06/08 TOP 0838 Bisacodyl 5 MG DAILY 06/08 1100 AC 06/08 PO 1148 Bisacodyl 10 MG Q12P PRN 06/08 1100 AC AL Bisacodyl 10 MG ONCE ONE 06/07 2029 DC 06/07 AL 06/07 2030 204 Bisacodyl 5 MG DAILY PRN 06/06 1630 DC 06/07 PO 1354 Clopidogrel Bisulfate 75 MG DAILY 06/06 0900 AC 06/08 PO 0838 Glycerin 2 SPRAY Q2P PRN 06/06 0815 AC 06/06 PO 0959 Heparin Sodium 5,000 UNIT Q8 06/05 2200 AC 06/08 (Porcine) SC 1411 Nicotine 21 MG DAILY 06/06 0900 AC 06/08 TOP 0838 Nitroglycerin 0.4 MG DAILY 06/07 0900 AC 06/08 TOP 0838 Omeprazole 40 MG DAILY AC 06/06 0700 AC 06/08 PO 0543 Ondansetron HCl 4 MG Q6P PRN 06/07 1815 AC 06/08 IV 1316 Oxycodone HCl 15 MG Q8 PRN 06/05 2145 AC 06/08 PO 1044 Polyethylene Glycol 17 GM DAILY 06/08 1101 AC 06/08 PO 1148 Senna/Docusate Sodium 2 TAB DAILY 06/08 1100 AC 06/08 PO 1148 Vancomycin HCl 1,500 MG Q12H 06/08 1300 AC 06/08 Sodium Chloride 250 ML IV 1412 Vancomycin HCl 1,500 MG 1930 06/06 1930 DC 06/07 Sodium Chloride 250 ML IV 2027 Last 24 Hrs of Lab/Keith Results Last 24 Hrs of Labs/Mics: Laboratory Tests 06/08/17 1130: Urine Color YEL, Urine Clarity CLEAR, Urine pH 6.0, Ur Specific [place] 1.010, Urine Protein NEG, Urine Ketones NEG, Urine Nitrite NEG, Urine Bilirubin NEG, Urine Urobilinogen 0.2, Ur Leukocyte Esterase NEG, Ur Microscopic EXAM NOT REQUIRED, Urine Hemoglobin NEG, Urine Glucose NEG 06/08/17 0610: Anion Gap 11, Estimated GFR 55 L, BUN/Creatinine Ratio 16.9, CBC w Diff NO MAN DIFF REQ, RBC 3.31 L, MCV 76.5 L, MCH 24.3 L, MCHC 31.8 L, RDW 19.4 H, MPV 7.9, Gran % 69.3, Lymphocytes % 13.5 L, Monocytes % 12.7 H, Eosinophils % 4.2, Basophils % 0.3, Absolute Granulocytes 5.7, Absolute Lymphocytes 1.1 L, Absolute Monocytes 1.0 H, Absolute Eosinophils 0.3, Absolute Basophils 0 06/08/17 0228: Urine Color Cancelled, Urine Clarity Cancelled, Urine pH Cancelled, Ur Specific [place] Cancelled, Urine Protein Cancelled, Urine Ketones Cancelled, Urine Nitrite Cancelled, Urine Bilirubin Cancelled, Urine Urobilinogen Cancelled, Ur Leukocyte Esterase Cancelled, Ur Microscopic Cancelled, Urine Hemoglobin Cancelled, Urine Glucose Cancelled 06/07/17 1825: CBC w Diff NO MAN DIFF REQ, RBC 3.15 L, MCV 75.2 L, MCH 24.0 L, MCHC 32.0 L, RDW 18.8 H, MPV 7.7, Gran % 69.6, Lymphocytes % 14.4 L, Monocytes % 11.9 H, Eosinophils % 3.8, Basophils % 0.3, Absolute Granulocytes 5.8, Absolute Lymphocytes 1.2, Absolute Monocytes 1.0 H, Absolute Eosinophils 0.3, Absolute Basophils 0 Microbiology 06/08 1130 URINE ROUT: Urine Culture - RECD 06/09 227 URINE ROUT: Urine Culture - CAN Cancelled: NOT REC'D IN LAB - DUPLICATE SENT AT 1130 - SEE [id number] Assessment/Plan Assessment: 67 year old male with PMH significant for CAD s/p stent (11/2016), HTN, HLD, COPD, and left BKA had an I+D of left facial abscess on 06/03, presented for a wound check and was admitted with hypotension, DENIS and wound culture positive for MRSA Left facial abscess: +MRSA on contact precautions Continue vancomycin Trough subtherapeutic DENIS resolving Increase vancomycin frequency from daily to q12h, 1500mg IV Vanco CAD: Restart carvedilol 6.25mg PO BID Continue aspirin, plavix, statin Can restart norvasc if blood pressure remains elevated Will restart lisinopril tomorrow as DENIS resolves DENIS: Creatinine 3.7 on presentation, 1.3 today after intravascular volume resuscitation Continue to monitor renal function Avoid nephrotoxins LE edema: probably due to renal insufficiency LE doppler ultrasound negative for DVT Hypotensive on arrival currently normotensive after several fluid boluses Bowel regimen for constipation Heart healthy diet DVT ppx-heparin subcutaneous Full code Problem List: 1. Acute renal failure 2. Hypotension 3. Facial abscess Pain Ratin Pain Location: abdominal Pain Goal: Pain 4 or less Pain Plan: prn Tomorrow's Labs & Rationales: giovanna Ellison MD,Dilip 06/08/17 1539: Attending MD Review Statement Attending Statement Attending MD Statement: examined this patient, discuss w/resident/PA/SAP SD ANALYST, agreed w/resident/PA/SAP SD ANALYST Attending Assessment/Plan: Mr. Nayak is a 67M PMH HTN, HLD, COPD, right hip replacement, left BKA, CAD S/P stent in November 2016, found to have left facial abscess and cellulitis s/p I&D in ED on 06/03, discharged home from ED on Bactrim and Amoxicillin, returned to ER for wound check, found to be hypotensive and with DENIS and wound cultures growing mRSA. Patient's agitation is better. Tolerating diet. He has no pain. Afebrile overnight, WBC normal, BP and creatinine improving 1. Left facial abscess and cellulitis secondary to MRSA 2. DENIS - resolving 3. Hypotension 4. Unstable angina - symptoms suggestive of Myocardial ischemia 5. Right lower extremity swelling Plan - Continue on telemetry - Continue IV Vancomycin - vancomycin trough levels have been low, could be related to improved renal function. Will increase the frequency to twice daily. - Will follow up on right lower extremity ultrasound - Serial EKG and troponin - Continue home medications - DVT PPx
--- NOTE | 2017-06-08 10:31 | RADIOLOGY REPORT ---
EXAMINATION: XR PORTABLE ABDOMEN CLINICAL INFORMATION: Nausea, vomiting, abdominal cramping and constipation; question obstruction. COMPARISON: None TECHNIQUE: 3 frontal views of the abdomen and pelvis are submitted. FINDINGS: There is moderate stool within the ascending colon, and lesser stool is seen within the hepatic flexure. There is gas identified to the level of the rectosigmoid. No obstruction or ileus is seen. There is no pathologic dilatation of large or small bowel loops. No unusual soft tissue calcifications are seen. The soft tissue planes are unremarkable. There has been a prior right hip arthroplasty. There are iliofemoral atherosclerotic calcifications. No acute osseous abnormality is seen. IMPRESSION: There is a nonspecific bowel gas pattern, without findings to suggest obstruction or ileus.
[2017-06-08 14:00] VITALS: BP 154/70
--- NOTE | 2017-06-08 14:07 | ULTRASOUND REPORT ---
EXAMINATION: US TRIPLEX LOWER EXTREMITY, RIGHT CLINICAL INFORMATION: Right lower extremity edema and swelling. COMPARISON: None TECHNIQUE: Color-flow triplex imaging with spectral analysis and compression Doppler were performed on the lower extremity. FINDINGS: Respiratory variation, normal compression and augmented flow are noted throughout the lower extremity. The visualized common femoral vein, superficial femoral vein, profunda femoral vein, popliteal vein and midcalf peroneal and posterior tibial venous segments show no evidence of deep venous thrombosis. There is no Villalba's cyst. IMPRESSION: Normal triplex scan without evidence of deep venous thrombosis involving the lower extremity.
--- NOTE | 2017-06-08 15:09 | PN- Cardiology ---
Subjective Subjective: The patient remains stable from a cardiac perspective. No further cardiac symptoms. His major complaint at the present time is swelling in his right leg and constipation. Objective Vital Signs and I&Os Vital Signs Date Time Temp Pulse Resp B/P B/P Pulse O2 O2 Flow FiO2 Mean Ox Delivery Rate 06/08 0800 98 Nasal 2.0L Cannula 06/08 0630 98.4 85 18 128/68 95 Room Air 06/08 0000 Nasal 2.0L Cannula 06/07 2230 98.2 87 18 130/60 94 Room Air 06/07 1600 94 Nasal 2.0L Cannula Intake & Output 06/08 1600 06/08 0800 06/08 0000 06/07 1600 06/07 0800 06/07 0000 Intake Total 850 345 364 4060 700 850 Output Total 475 625 019 017 2136 Balance 850 125 -375 880 -150 -550 Intake, IV 250 600 250 800 700 550 Intake, Oral 600 480 300 Number 1 1 0 Bowel Movements Output, Urine 475 625 [phone] Patient 224 lb 233 lb Weight Weight Bed scale Measurement Method Physical Exam: General Appearance: well developed/nourished, alert, awake, oriented Head: normal, improving left facial abscess HEENT: Normal Neck: supple, JVP normal, carotid upstrokes normal bilaterally, no masses or thyromegaly Respiratory: chest non-tender, clear to auscultation and percussion bilaterally Cardiovascular: regular rate/rhythm, normal S1, S2, 1/6 systolic murmur Abdomen: normal bowel sounds, soft, non-tender Extremities: normal inspection, no edema Vascular: Pulses are 2+ and equal bilaterally Neurologic: Grossly normal/nonfocal Current Medications: Current Medications Sig/Jonny Start time Last Medication Dose Route Stop Time Status Admin Acetaminophen 325 MG .STK-MED ONE 06/08 0014 DC PO 06/08 0015 Acetaminophen 1,000 MG Q6P PRN 06/05 2144 AC 06/05 N/A 1 UNIT IV 2014 Acetaminophen 325 MG Q6P PRN 06/05 PO 0022 Albuterol Sulfate 2 PUF Q4P PRN 06/05 2144 AC INH Aspirin Buffered 81 MG DAILY 06/06 0900 AC 06/08 PO 1044 Atorvastatin Calcium 40 MG 1700 06/06 1700 AC 06/07 PO 1757 Bacitracin 1 LATESHA DAILY 06/06 1739 AC 06/08 TOP 0838 Bisacodyl 5 MG DAILY 06/08 1100 AC 06/08 PO 1148 Bisacodyl 10 MG Q12P PRN 06/08 1100 AC VT Bisacodyl 10 MG ONCE ONE 06/07 2030 DC 06/07 VT 06/07 Bisacodyl 5 MG DAILY PRN 06/06 1630 DC 06/07 PO 1354 Clopidogrel Bisulfate 75 MG DAILY 06/06 0900 AC 06/08 PO 0838 Glycerin 2 SPRAY Q2P PRN 06/06 0815 AC 06/06 PO 0959 Heparin Sodium 5,000 UNIT Q8 06/05 2200 AC 06/08 (Porcine) SC 1411 Nicotine 21 MG DAILY 06/06 0900 AC 06/08 TOP 0838 Nitroglycerin 0.4 MG DAILY 06/07 0900 AC 06/08 TOP 0838 Omeprazole 40 MG DAILY AC 06/06 0700 AC 06/08 PO 0543 Ondansetron HCl 4 MG Q6P PRN 06/07 1815 AC 06/08 IV 1316 Oxycodone HCl 15 MG Q8 PRN 06/05 2145 AC 06/08 PO 1044 Polyethylene Glycol 17 GM DAILY 06/08 1101 AC 06/08 PO 1148 Senna/Docusate Sodium 2 TAB DAILY 06/08 1100 AC 06/08 PO 1148 Vancomycin HCl 1,500 MG Q12H 06/08 1300 AC 06/08 Sodium Chloride 250 ML IV 1412 Vancomycin HCl 1,500 MG 1930 06/06 193 DC 06/07 Sodium Chloride 250 ML IV 2027 Results Last 48 Hrs of Labs/Mics: Laboratory Tests 06/08/17 1130: Urine Color YEL, Urine Clarity CLEAR, Urine pH 6.0, Ur Specific [place] 1.010, Urine Protein NEG, Urine Ketones NEG, Urine Nitrite NEG, Urine Bilirubin NEG, Urine Urobilinogen 0.2, Ur Leukocyte Esterase NEG, Ur Microscopic EXAM NOT REQUIRED, Urine Hemoglobin NEG, Urine Glucose NEG 06/08/17 0610: Anion Gap 11, Estimated GFR 55 L, BUN/Creatinine Ratio 16.9, CBC w Diff NO MAN DIFF REQ, RBC 3.31 L, MCV 76.5 L, MCH 24.3 L, MCHC 31.8 L, RDW 19.4 H, MPV 7.9, Gran % 69.3, Lymphocytes % 13.5 L, Monocytes % 12.7 H, Eosinophils % 4.2, Basophils % 0.3, Absolute Granulocytes 5.7, Absolute Lymphocytes 1.1 L, Absolute Monocytes 1.0 H, Absolute Eosinophils 0.3, Absolute Basophils 0 06/07/17 1825: CBC w Diff NO MAN DIFF REQ, RBC 3.15 L, MCV 75.2 L, MCH 24.0 L, MCHC 32.0 L, RDW 18.8 H, MPV 7.7, Gran % 69.6, Lymphocytes % 14.4 L, Monocytes % 11.9 H, Eosinophils % 3.8, Basophils % 0.3, Absolute Granulocytes 5.8, Absolute Lymphocytes 1.2, Absolute Monocytes 1.0 H, Absolute Eosinophils 0.3, Absolute Basophils 0 06/07/17 0625: Anion Gap 11, Estimated GFR 51 L, BUN/Creatinine Ratio 21.4, CBC w Diff NO MAN DIFF REQ, RBC 3.16 L, MCV 75.0 L, MCH 23.9 L, MCHC 31.8 L, RDW 19.3 H, MPV 8.0, Gran % 69.4, Lymphocytes % 15.0 L, Monocytes % 11.8 H, Eosinophils % 3.5, Basophils % 0.3, Absolute Granulocytes 5.4, Absolute Lymphocytes 1.2, Absolute Monocytes 0.9 H, Absolute Eosinophils 0.3, Absolute Basophils 0 06/06/17 194: Vancomycin Trough 5.2 L Assessment/Plan Assessment/Plan Assessment: 1. Left facial abscess 2. Chest pain syndrome 3. History of coronary artery disease, status post right coronary stent 4. Acute renal insufficiency-improving, creatinine 1.4 today 5. Palpitations 6. Anemia 7. Worsening right lower extremity edema Recommendations: -Continue current management as per the medical team. -Continue antibiotics, transition to oral antibiotics when appropriate -Continue telemetry monitoring for another 24 hours -As per Dr. Blancas, the plan is to pursue either outpatient stress testing or possible repeat cardiac catheterization depending on the patient's renal function. -Right lower extremity venous ultrasound to better exclude the possibility of DVT Continue telemetry? Yes
[2017-06-08 22:09] VITALS: BP 138/62
[2017-06-09 06:22] VITALS: BP 130/80
--- NOTE | 2017-06-09 08:15 | PN- Housestaff ---
Astrid CORTES,Lupillo 06/09/17 0815: Subjective Follow-up For: left facial abscess DENIS LE edema Tele-Events Since Last Visit: sinus rhythm, no events Subjective: no complaints, lower extremity edema improved, wants to be discharged Review of Systems Constitutional: Reports: see HPI. Objective Last 24 Hrs of Vital Signs/I&O Vital Signs Date Time Temp Pulse Resp B/P B/P Pulse O2 O2 Flow FiO2 Mean Ox Delivery Rate 06/09 1014 88 138/82 06/09 0622 99.4 75 20 130/80 95 Nasal 3.0L Cannula 06/08 2356 Nasal 2.0L Cannula 06/08 2209 99.0 84 18 138/62 96 Nasal 3.0L Cannula 06/08 2131 84 138/62 06/08 1600 Nasal 2.0L Cannula 06/08 1400 98.3 91 20 154/70 97 Nasal 3.0L Cannula Intake & Output 06/09 1600 06/09 0800 06/09 0000 Intake Total 250 Output Total 625 300 Balance -375 -300 Intake, IV 250 Output, Urine 625 300 Patient 105.642 kg Weight Physical Exam General Appearance: Alert, Oriented X3, Cooperative, No Acute Distress Cardiovascular: Regular Rate, Normal S1, Normal S2, No Murmurs Lungs: Clear to Auscultation, Normal Air Movement Abdomen: Normal Bowel Sounds, Soft, No Tenderness, No Masses Extremities: No Clubbing, No Cyanosis, No Edema, Normal Pulses Current Medications: Current Medications Sig/Jonny Start time Last Medication Dose Route Stop Time Status Admin Acetaminophen 1,000 MG Q6P PRN 06/05 2144 AC 06/05 N/A 1 UNIT IV 2014 Acetaminophen 325 MG Q6P PRN 06/05 2014 AC 06/08 PO 0022 Albuterol Sulfate 2 PUF Q4P PRN 06/05 2144 AC INH Aspirin Buffered 81 MG DAILY 06/06 0900 AC 06/09 PO 1012 Atorvastatin Calcium 40 MG 1700 06/06 1700 AC 06/08 PO 1656 Bacitracin 1 LATESHA DAILY 06/06 1739 AC 06/09 TOP 1017 Bisacodyl 5 MG DAILY 06/08 1100 AC 06/09 PO 1012 Bisacodyl 10 MG Q12P PRN 06/08 1100 AC IN Carvedilol 6.25 MG BID 06/08 2100 AC 06/09 PO 1014 Clopidogrel Bisulfate 75 MG DAILY 06/06 0900 AC 06/09 PO 1013 Diphenhydramine HCl 25 MG .STK-MED ONE 06/09 0025 DC PO 06/09 0026 Diphenhydramine HCl 25 MG ONCE ONE 06/08 2330 DC 06/09 PO 06/08 2331 0025 Diphenhydramine HCl 1 LATESHA TIDPRN 06/08 2330 AC TOP Glycerin 2 SPRAY Q2P PRN 06/06 0815 AC 06/06 PO 0959 Heparin Sodium 5,000 UNIT Q8 06/05 2200 AC 06/09 (Porcine) SC 0622 Nicotine 21 MG DAILY 06/06 0900 AC 06/09 TOP 0754 Nitroglycerin 0.4 MG DAILY 06/07 0900 AC 06/09 TOP 1013 Omeprazole 40 MG DAILY AC 06/06 0700 AC 06/09 PO 0622 Ondansetron HCl 4 MG .STK-MED ONE 06/08 1315 DC IM 06/08 1316 Ondansetron HCl 4 MG Q6P PRN 06/07 1815 AC 06/08 IV 1934 Oxycodone HCl 15 MG Q8 PRN 06/05 2145 AC 06/09 PO 0753 Polyethylene Glycol 17 GM DAILY 06/08 1101 AC 06/09 PO 1013 Senna/Docusate Sodium 2 TAB DAILY 06/08 1100 AC 06/09 PO 1012 Vancomycin HCl 1,500 MG Q12H 06/08 1300 AC 06/09 Sodium Chloride 250 ML IV 0025 Vancomycin HCl 1,500 MG 1930 06/06 1930 DC 06/07 Sodium Chloride 250 ML IV 2027 Last 24 Hrs of Lab/Keith Results Last 24 Hrs of Labs/Mics: Laboratory Tests 06/09/17 0652: Anion Gap 9, Estimated GFR > 60, BUN/Creatinine Ratio 12.5 06/08/17 1130: Urine Color YEL, Urine Clarity CLEAR, Urine pH 6.0, Ur Specific [place] 1.010, Urine Protein NEG, Urine Ketones NEG, Urine Nitrite NEG, Urine Bilirubin NEG, Urine Urobilinogen 0.2, Ur Leukocyte Esterase NEG, Ur Microscopic EXAM NOT REQUIRED, Urine Hemoglobin NEG, Urine Glucose NEG Microbiology 06/08 1130 URINE ROUT: Urine Culture - RES Assessment/Plan Assessment: 67 year old male with PMH significant for CAD s/p stent (11/2016), HTN, HLD, COPD, and left BKA had an I+D of left facial abscess on 06/03, presented for a wound check and was admitted with hypotension, DENIS and wound culture positive for MRSA Left facial abscess: +MRSA on contact precautions Continue vancomycin Trough subtherapeutic DENIS resolving Increased vancomycin frequency from daily to q12h yesterday, 1500mg IV Vanco Complete PO course of Bactrim DS on discharge CAD: Restart carvedilol 6.25mg PO BID Continue aspirin, plavix, statin Can restart norvasc if blood pressure remains elevated Will restart lisinopril tomorrow as DENIS resolves DENIS: Creatinine 3.7 on presentation, 1.3 today after intravascular volume resuscitation Continue to monitor renal function Avoid nephrotoxins Restart ACEi on discharge LE edema: probably due to renal insufficiency LE doppler ultrasound negative for DVT Start lasix 20mg PO EOD on discharge Hypotensive on arrival currently normotensive after several fluid boluses Bowel regimen for constipation Heart healthy diet DVT ppx-heparin subcutaneous Full code Stable for discharge Problem List: 1. Facial abscess 2. Acute renal failure Pain Ratin Pain Location: n/a Pain Goal: Pain 4 or less Pain Plan: prn Tomorrow's Labs & Rationales: none discharge Joelle Bar MD 06/09/17 1013: Attending MD Review Statement Attending Statement Attending MD Statement: examined this patient, discuss w/resident/PA/PILL COATER, agreed w/resident/PA/PILL COATER, reviewed EMR data (avail) Attending Assessment/Plan: 67M PMH HTN, HLD, COPD, right hip replacement, left BKA, CAD S/P stent in November 2016, found to have left facial abscess and cellulitis s/p I&D in ED on 06/03, discharged home from ED on Bactrim and Amoxicillin, returned to ER for wound check, found to be hypotensive and with DENIS and wound cultures growing mRSA. He had complained of a sensation of heart flutter and intermittent chest pain to admitting team, denying these symptoms now. Patient feels well today and has no complaints. He has 1+ b/l lower extremity edema that is improved from yestederday. his creatinine is down to 1.2. 1. Left facial abscess and cellulitis secondary to mRSA 2. DENIS 3. Hypotension Plan - Stable for discharge home - Bactrim to complete 14 day course - Plastic surgery and cardiology as outpatient - Lasix every other day 20mg PO - Continue home medications
[2017-06-09] MEDS ORDERED: LASIX20 M1 PO ×2 (09:25→11:20)
[2017-06-09 10:14] VITALS: BP 138/82
[2017-06-09] MEDS ORDERED: NITROSTAT0.4 M1 SL (11:20)
--- NOTE | 2017-06-09 11:23 | Discharge Summary ---
Visit Information Visit Dates Admission Date: 06/05/17 Discharge Date: 06/09/17 Hospital Course Course Attending Physician: Joelle Bar MD Primary Care Physician: Salas CORTES,Salas Hospital Course: 67 year old male with PMH significant for CAD s/p RCA stent (11/2016), HTN, HLD , COPD, and left BKA had an incision and drainage of left facial abscess on 06/03 prescribed amoxicillin and Bactrim. Two days laters after presenting for a wound check visit, wound cultures had grown MRSA, and he was hypotensive with an acute kidney injury with complaints of chest pain for which he was admitted to telemetry. He was bolused several liters of crystalloid because of hypotension, DENIS, and infection although did not meet criteria for sepsis (no leukocytosis, tachycardia, fever, or lactic acidemia). Serial troponins and EKGs were negative for myocardial ischemia and there were no arrhythmias during his stay. Cardiology was consulted and was concerned his RCA stent may have restenosed given the character of his chest pain and recent PCI and suggested cardiac catheterization after appropriate medical treatment. His antihypertensives were initially held for hypotension but carvedilol was restarted prior to discharge. His acute kidney injury resolved with hydration and cessation of his lisinopril. He did have a large amount of lower extremity edema in the right leg and a doppler ultrasound was negative for thrombosis. He was treated with intravenous vancomycin with improvement of the abscess and discharged on Bactrim for a total two week course and instructed to follow up with Dr. Galan of plastic surgery. He was also prescribed 20mg of lasix every other day for lower extremity edema and should have renal function reassessed as an outpatient. He also complained of chronic constipation, is on chronic opioids, this was managed with miralax and senna. He should follow up with his primary care physician after discharge. He was also instructed to follow up with Dr. Blancas for possible repeat cardiac catheterization. Allergies: Coded Allergies: No Known Allergies (06/05/17) Disposition Summary Disposition Principal Diagnosis: Left facial abscess Hypotension Acute kidney injury Lower extremity edema Chest pain with history of coronary artery disease and stenting Additional Diagnosis: Hypertension Hyperlipidemia COPD Left BKA Discharge Disposition: home or self care Discharge Instructions General Discharge Information Code Status: Full Code Patient's Diet: Heart healthy diet Patient's Activity: As tolerated Follow-Up Instructions/Appts: Please follow up with your primary care physician (Dr. Marina), plastic surgery (Dr. Galan), and long goods drier (Dr. Blancas). Medications at Discharge Discharge Medications: Stop taking the following medications: Amoxicillin (Amoxicillin) 875 MG TABLET ORAL TWICE DAILY Qty = 20 Continue taking these medications: Aspirin (Ecotrin*) 81 MG TABLET. 1 Tablet ORAL DAILY Comments: Last Taken: 06/09/17 Time: 10:12 Oxycodone HCl (Oxycodone HCl) 15 MG TABLET 1 Tablet ORAL Q8H Qty = 84 Comments: Last Taken: 06/09/17 Time: 07:53 Albuterol Sulfate (Proair Hfa) 8.5 GM HFA.AER.AD 2 Puff Inhale through mouth EVERY SIX HOURS as needed for COPD Qty = 4 Comments: NOT GIVEN Atorvastatin Calcium (Atorvastatin Calcium) 40 MG TABLET 1 Capsule ORAL DAILY Qty = 90 Comments: Last Taken: 06/08/17 Time: 16:56 Amlodipine Besylate (Norvasc) 10 MG TABLET 1 Capsule ORAL DAILY Qty = 60 Comments: NOT GIVEN IN THE HOSPITAL Lisinopril (Lisinopril) 40 MG TABLET 1 Capsule ORAL DAILY Qty = 30 Comments: NOT GIVEN IN THE HOSPITAL Tamsulosin HCl (Flomax) 0.4 MG CAP.ER.24H 0.4 Milligram ORAL DAILY Comments: NOT GIVEN IN THE HOSPITAL Sulfamethoxazole/Trimethoprim (Bactrim Ds Tablet) 800 MG-160 MG TABLET 1 Tablet ORAL TWICE DAILY Qty = 20 Comments: NOT GIVEN IN THE HOSPITAL Omeprazole (Omeprazole) 40 MG CAPSULE. 1 Capsule ORAL DAILY Comments: Last Taken: 06/09/17 Time: 06:22 Clopidogrel Bisulfate (Clopidogrel) 75 MG TABLET 1 Tablet ORAL DAILY Comments: Last Taken: 06/09/17 Time: 10:13 Start taking the following new medications: Furosemide (Lasix) 20 MG TABLET 1 Tablet ORAL Every other day Qty = 30 No Refills Instructions: . Comments: NOT GIVEN IN THE HOSPITAL Nitroglycerin (Nitrostat) 0.4 MG TAB.SUBL 1 Tablet SUBLINGUAL As Directed as needed for CHEST PAIN Qty = 25 No Refills Instructions: 1st sign of attack; may repeat every 5 minutes until relief; if pain persists after 3 tablets in 15 minutes, prompt medical att Copies To: Salas CORTES,Salas; Adama CORTES,Ren Blancas MD PHD,Zhang Nicole Attending MD Review Statement Documenting Attending: Yosvayn CORTES,Joelle
--- NOTE | 2017-06-09 11:29 | Patient Discharge Instructions ---
Discharge Instructions General Discharge Information You were seen/treated for: facial abscess acute kidney injury Special Instructions: Please follow up with Dr. Galan for your facial abscess. Please follow up with Dr. Blancas for chest pain. Please follow up with your primary care physician for acute kidney injury. You are restarting you ACEi and 20mg lasix every other day for lower extremity swelling Acute Coronary Syndrome Inclusion Criteria At DC or during hospital stay patient has or had the following: ACS DIAGNOSIS No Discharge Core Measures Meds if any: Prescribed or Continued at Discharge Meds if any: NOT Prescribed or Continued at Discharge Congestive Heart Failure Inclusion Criteria At DC or during hospital stay patient has or had the following: CHF DIAGNOSIS No Discharge Core Measures Meds if any: Prescribed or Continued at Discharge Meds if any: NOT Prescribed or Continued at Discharge Cerebrovascular accident Inclusion Criteria At DC or during hospital stay patient has or had the following: CVA/TIA Diagnosis No Discharge Core Measures Meds if any: Prescribed or Continued at Discharge Meds if any: NOT Prescribed or Continued at Discharge Venous thromboembolism Inclusion Criteria VTE Diagnosis No VTE Type NONE VTE Confirmed by (Test) NONE Discharge Core Measures - Per Current guidelines, there needs to be overlap - treatment for the first 5 days of Warfarin therapy. - If discharged on Warfarin prior to 5 days of - overlap therapy, the patient will need to be - assessed for post discharge needs including - *Post discharge parental anticoagulation - *Warfarin and/or parental anticoagulation education - *Follow up date to check INR post discharge At least 5 days overlap therapy as Inpatient No Meds if any: Prescribed or Continued at Discharge Note: Overlap Therapy is Warfarin and Anticoagulant Meds if any: NOT Prescribed or Continued at Discharge
== END 2017-06-09 11:23 | DRG 603 ==
LOC: ERH 16:58 → 1NO 19:33 → ERHI 19:33 → ENRESERV 21:03 → ENTRNSPT 22:25 → 1NO 22:46 → CMPTRNSPT 22:49 → 1NO 06-06 07:54 → ENPENDDIS 06-09 10:02 → ENTRNSPT 06-09 11:04 → EDTRNSPT 06-09 11:14 → EDTRNSPTSTS 06-09 11:14 → 1NO 06-09 11:23 → CMPTRNSPT 06-09 11:24
PROVIDERS: Internal Medicine Hematology & Oncology; Student in an Organized Health Care Education/Training Program
DX: L03.211 Cellulitis of face (principal); N17.9 Acute kidney failure, unspecified; I95.9 Hypotension, unspecified; J44.9 Chronic obstructive pulmonary disease, unspecified; D64.9 Anemia, unspecified; I25.10 Atherosclerotic heart disease of native coronary artery without angina pectoris; B95.62 Methicillin resistant Staphylococcus aureus infection as the cause of diseases classified elsewhere; Z72.0 Tobacco use; R00.2 Palpitations; Z98.61 Coronary angioplasty status; E78.5 Hyperlipidemia, unspecified; I10 Essential (primary) hypertension; Z89.512 Acquired absence of left leg below knee; K59.00 Constipation, unspecified; Z96.641 Presence of right artificial hip joint; Z79.891 Long term (current) use of opiate analgesic; Z79.51 Long term (current) use of inhaled steroids; R60.0 Localized edema
CPT/HCPCS: 1NP; 84133; 84300; 87184; 36415; 36592; 71045; 74018; 81001; 81003; 82436; 82570; 86920; 87040; 87070; 87086; 87147; 93005; 93010; 96374; 99291; J0131; J1644; J2001; J2405; J3250; J3370; J3490; J7040; P9016

== ENCOUNTER 2017-06-17 17:26 | Inpatient (IN) | payer OTHER, MEDICARE ==
[~2017-06-17] VITALS: Ht 182.9 cm; Wt 98.1 kg
[~2017-06-17 17:26] MED LIST changes: +CLOPIDOGREL75 M1 PO; +LASIX20 M1 PO; +NITROSTAT0.4 M1 SL; +OMEPRAZOLE40 M1 PO
[2017-06-17 18:21] LABS: ABSOLUTE BASOPHIL COUNT 0.2 /CUMM (0.0-0.2); ABSOLUTE EOSINOPHIL COUNT 0.4 /CUMM (0.0-0.7); ABSOLUTE GRANULOCYTE CT 10.3 /CUMM (1.4-6.5); ABSOLUTE LYMPH COUNT 2.1 /CUMM (1.2-3.4); BASOPHIL % 1.2 % (0.0-2.0); EOSINOPHIL % 3.1 % (0-5); GRANULOCYTE % 73.3 % (42.2-75.2); HEMATOCRIT 34.5 % (42-52); MEAN CORPUSCULAR HGB 24.1 PG (27.0-31.0); MEAN CORPUSCULAR HGB CONC 31.9 G/DL (33.0-37.0); MEAN CORPUSCULAR VOLUME 75.5 FL (80.0-94.0); MEAN PLATELET VOLUME 6.8 FL (7.4-10.4); PLATELET COUNT 412 /CUMM (130-400); RBC DISTRIBUTION WIDTH 20.2 % (11.5-14.5); RED BLOOD CELL CT 4.57 /CUMM (4.70-6.10)
[2017-06-17 18:26] LABS: PT 11.3 SEC (9.4-12.5); PTT 26 SEC (25-37)
--- NOTE | 2017-06-17 20:07 | ED CARDIAC/CP/PALPITATIONS ---
History of Present Illness General Chief Complaint: General Adult Stated Complaint: PT HEART RATE IS HIGH Source: patient, old records Exam Limitations: no limitations Vital Signs & Intake/Output Vital Signs & Intake/Output Vital Signs Date Time Temp Pulse Resp B/P B/P Pulse O2 O2 Flow FiO2 Mean Ox Delivery Rate 06/19 0701 98.6 61 20 130/62 95 Room Air 06/18 2242 98.0 65 20 124/78 95 06/18 2127 65 124/78 06/18 1443 Room Air 06/18 1438 97.8 68 18 104/66 97 Room Air 06/18 1136 67 140/68 06/18 1135 67 140/68 ED Intake and Output 06/19 0000 06/18 1200 Intake Total 2358.70 1080 Output Total 2450 1000 Balance -91.30 80 Intake, IV 838.70 960 Intake, Oral 1520 120 Output, Urine 2450 1000 Patient 217 lb 216 lb Weight Weight Bed scale Measurement Method Allergies Coded Allergies: No Known Allergies (06/05/17) Reconcile Medications Albuterol Sulfate (Proair Hfa) 8.5 GM HFA.AER.AD 2 PUF INH Q6 PRN COPD Amlodipine Besylate (Norvasc) 10 MG TABLET 1 CAP PO DAILY HYPERTENSION Aspirin (Ecotrin*) 81 MG TABLET.DR 1 TAB PO DAILY HEART/BLOOD (Reported) Atorvastatin Calcium 40 MG TABLET 1 CAP PO DAILY CHOLESTEROL Carvedilol 6.25 MG TABLET 1 TAB PO BID CAD (Reported) Clopidogrel Bisulfate (Clopidogrel) 75 MG TABLET 1 TAB PO DAILY STENT ( Reported) Furosemide (Lasix) 20 MG TABLET 1 TAB PO EOD EDEMA . Lisinopril 40 MG TABLET 1 CAP PO DAILY BP Nitroglycerin (Nitrostat) 0.4 MG TAB.SUBL 1 TAB SL AD PRN CHEST PAIN 1st sign of attack; may repeat every 5 minutes until relief; if pain persists after 3 tablets in 15 minutes, prompt medical att Omeprazole 40 MG CAPSULE.DR 1 CAP PO DAILY GERD (Reported) Oxycodone HCl 15 MG TABLET 1 TAB PO Q8H PAIN (Reported) Sulfamethoxazole/Trimethoprim (Bactrim Ds Tablet) 800 MG-160 MG TABLET 1 TAB PO BID ABSCESS Tamsulosin HCl (Flomax) 0.4 MG CAP.ER.24H 0.4 MG PO DAILY BLAD[facility] HEALTH ( Reported) Triage Note: PT TO ED FROM [facility] OFFICE WITH HIGH HEART RATE OF 117, SENT IN FOR EVAL. PT RECENTLY ADMITED FOR BLOOD TRANSFUSIONS, ON FRIDAY. Triage Nurses Notes Reviewed? yes HPI: Patient presents for evaluation of an elevated heart rate detected during a visit with his primary care physician. Patient states that the doctor checked his vital signs and noticed his heart rate was about 117. Patient also states that he has been having chest pain over the past 2 weeks that is described as intermittent occurring generally 1 episode daily. Episodes typically last hours. The pain is located along the left lower sternal border and feels a sharp piercing pain with a heaviness. He states he is currently having a moderate intensity chest pain that worsens with deep inspiration. Prior episodes have made him feel diaphoretic with left arm heaviness and gasping respirations. He states his pan helper, Dr. Blancas, has a stress test pending this month. Past History Travel History Traveled to [place] past 21 day No Medical History Any Pertinent Medical History? see below for history Neurological: NONE EENT: NONE Cardiovascular: hypertension, hyperlipidemia Respiratory: COPD, emphysema Gastrointestinal: NONE Hepatic: NONE Renal: NONE Musculoskeletal: LEFT BKA Psychiatric: NONE Endocrine: NONE Blood Disorders: anemia Cancer(s): NONE INSIDE B2B SALES/Reproductive: NONE History of MRSA: Yes History of VRE: No History of CDIFF: No Influenza Vaccine: 11/10/16 Surgical History Surgical History: hip replacement (Right sided(2003)), left lower extremity BKA secondary to trauma Psychosocial History Who do you live with Patient/Self Services at Home None What is your primary language Thai Tobacco Use: Current Daily Use Daily Tobacco Use Amount/Type: =< 4 Cigarettes daily ETOH Use: denies use Illicit Drug Use: denies illicit drug use Family History Family History, If Any: FATHER, , Age 60+. FH: myocardial infarction Hx Contributory? No Review of Systems Review of Systems Constitutional: Reports: no symptoms. EENTM: Reports: no symptoms. Respiratory: Reports: no symptoms. Cardiovascular: Reports: see HPI. GI: Reports: no symptoms. Genitourinary: Reports: no symptoms. Musculoskeletal: Reports: no symptoms. Skin: Reports: no symptoms. Neurological/Psychological: Reports: no symptoms. Hematologic/Endocrine: Reports: no symptoms. Immunologic/Allergic: Reports: no symptoms. All Other Systems: Reviewed and Negative Physical Exam Physical Exam Cardiovascular: see below Comments: Gen.: Well-nourished, well-developed, no acute respiratory distress. Head: Normocephalic, atraumatic. Eyes: Normal inspection bilaterally Ears: Normal inspection bilaterally Nose: Normal inspection Throat/mouth : Moist mucosa Neck: Supple, full range of motion, no goiter Heart: Regular rate and rhythm, no murmurs rubs or gallops Lungs: Clear to auscultation bilaterally with normal air entry Chest: Nontender Back: Normal range of motion Abdomen: Soft, nontender, nondistended, normal bowel sounds Extremities: Left BKA, Normal range of motion grossly, equal radial pulses, no cyanosis clubbing or edema, right calf nontender Neurologic: Cranial nerves grossly intact, speech is clear Skin: warm and dry Psychiatric: Calm, cooperative, no apparent delusions or hallucinations Core Measures ACS in differential dx? No CVA/TIA Diagnosis No Sepsis Present: No Sepsis Focused Exam Completed? No Progress Differential Diagnosis: AMI, atrial fibrillation, musculoskeletal pain, pericarditis, PSVT, unstable angina, V-fib/V-Tach Plan of Care: Orders Procedure Date/time Status Nothing by Mouth 06/19 B Active PARTIAL THROMBOPLASTIN TIME 06/19 1700 Active DIPYRIDAMOLE STRESS W/NUC IMAG 06/19 0800 Active MAGNESIUM 06/19 06 Complete CBC WITHOUT DIFFERENTIAL 06/19 06 Complete BASIC ELECTROLYTES PLUS BUN&CR 06/19 06 Complete PARTIAL THROMBOPLASTIN TIME 06/19 0510 Complete PARTIAL THROMBOPLASTIN TIME 06/19 1999 Complete RT: Evaluation 06/18 1443 Active THERAPIST ORDERS 06/18 UNK Complete Nursing Misc 06/18 UNK Active Current Medications Sig/Jonny Start time Last Medication Dose Stop Time Status Admin Nitroglycerin 0.4 MG DAILY 06/18 1309 AC 06/19 (Transderm Nitro 0913 10MG (0.4 MG/Hr) Patch) Carvedilol 6.25 MG BID 06/18 1005 AC 06/18 (Coreg) 2127 Aspirin Buffered 81 MG DAILY 06/18 899 AC 06/19 (Ecotrin) 09 Atorvastatin Calcium 40 MG DAILY 06/18 899 AC 06/19 (Lipitor) 09 Clopidogrel Bisulfate 75 MG DAILY 06/18 899 AC 06/19 (Plavix) 09 Omeprazole 40 MG DAILY AC 06/18 0700 AC 06/19 (Prilosec) 0608 Albuterol Sulfate 2 PUF Q6 PRN 06/17 2199 AC (Ventolin) Acetaminophen 650 MG Q6P PRN 06/17 2144 AC (Tylenol) Heparin Sodium 25,000 UNIT Q24H 06/17 2144 AC 06/18 (Porcine) 06/19 (Heparin) Sodium Chloride 500 ML Hydrocodone Bitart/ 1 TAB Q6P PRN 06/17 2144 AC Acetaminophen (Vicodin) Oxycodone/ 2 TAB Q6P PRN 06/17 2144 AC 06/19 Acetaminophen 0913 (Percocet) Laboratory Tests 06/19/17 0500: Anion Gap 8, Estimated GFR 43 L, BUN/Creatinine Ratio 13.1, Magnesium 1.9, APTT 65 H, CBC w Diff NO MAN DIFF REQ, RBC 3.57 L, MCV 75.3 L, MCH 23.8 L, MCHC 31.6 L, RDW 20.1 H, MPV 7.0 L, Gran % 62.5, Lymphocytes % 24.8, Monocytes % 8.7, Eosinophils % 3.6, Basophils % 0.4, Absolute Granulocytes 4.8, Absolute Lymphocytes 1.9, Absolute Monocytes 0.7 H, Absolute Eosinophils 0.3, Absolute Basophils 0 06/18/17 2045: APTT 95 H 06/18/17 1135: APTT 54 H Initial ED EKG: NSR, nonspecific ST T wave chg Prior EKG: unchanged Comments: 06/17/2017 8:38:51 PM I have updated Sathya on his test results. When I saw him a short time ago he was complaining of a moderate left chest pain, medications ordered. I have discussed this case with case management, Dr. Ward, the hospitalist and Dr. Blancas. Dr. Blancas feels the patient should be heparinized, Lovenox adequate. Departure Departure Disposition: STILL A PATIENT Condition: Stable Clinical Impression Primary Impression: Unstable angina Referrals: Salas Marina MD (PCP/Family) Departure Forms: Customer Survey General Discharge Information Admission Note Spoke With: Elodia Dewey MD Documentation of Exam: Documentation of any treatments & extenuating circumstances including Concerns Regarding Discharge (functional status, medication knowledge or non-compliance, living conditions, etc.) that warrant an admission rather than observation: Patient's clinical presentation is consistent with unstable angina (elevated heart rate, chest discomfort, arm heaviness, dyspnea and sweating). I feel the patient requires hospitalization for further investigation of possible unstable angina. I do not feel that this patient is a good candidate for outpatient management given his risk of acute coronary syndrome RI and mortality. I feel the exertion of outpatient management could exacerbate his chest pain and provoke an acute coronary syndrome. This patient also has multiple risk factors for coronary artery disease and has a history of emphysema, compromising his cardio respiratory system further. I feel he now requires hospitalization for anticoagulation, cardiology consultation, serial EKGs and troponins and optimization of medical management. Cardiac catheterization and/or stress test should be considered. I feel this patient will require multiple day hospitalization. Critical Care Note Critical Care Note Critical Care Time: 30-74 min
--- NOTE | 2017-06-17 22:01 | CT SCAN REPORT ---
EXAMINATION: CT CHEST WITHOUT CONTRAST CLINICAL INFORMATION: Left chest pain and elevated WBC level. COMPARISON: Chest CT from 11/11/2016. TECHNIQUE: Multidetector volumetric CT imaging of the chest was done. Axial MIP volume rendering provided. Sagittal and coronal reformatted images were obtained. DLP: 311 mGy-cm FINDINGS: LUNGS AND PLEURA: Trachea and mainstem bronchi are widely patent and normal in caliber. Mild, chronic thickening of bronchial venegas in both lungs. There is a nodule of mixed attenuation in the posterior right lung apex (image 114, series 4); the groundglass component, which measures approximately 1.1 cm, remains unchanged. The irregular, solid component, which measures approximately 0.6 x 0.9 cm, has slightly increased in size compared to 11/11/2016 and is definitely larger compared to 07/17/2015. There are old micronodular opacities and groundglass opacities in upper lobes that remain unchanged compared to 11/11/2016. There are new nodules in the right lung, as well. For example, a new, irregular nodular focus measuring approximately 0.4 x 0.8 cm present in the anterior right upper lobe (image 216, series 4). Multiple new clustered micronodules are present in the anterior segment of the right upper lobe near the level of the minor fissure. The largest new, irregular nodule in the lateral segment of the right lower lobe abuts the adjacent major fissure and is difficult to precisely measure given its irregular border and its juxtaposition to adjacent vessels and bronchi; it measures approximately 1.3 cm, and there are multiple other new nodules in the right lower lobe peripheral to this lesion. Chronic subsegmental atelectasis/scarring in the lingula adjacent to the major fissure. No pleural effusion or pneumothorax. MEDIASTINUM: Three-vessel coronary artery atherosclerotic calcification. Mild atherosclerosis of the thoracic aorta without aneurysm. Moderate-sized hiatal hernia. Thyroid gland is unremarkable. LYMPHATICS: No lymphadenopathy. UPPER ABDOMEN: Cholelithiasis. Again noted is mild fullness of the adrenal glands. No acute findings in the examined upper abdomen compared to 11/11/2016. SKELETAL AND CHEST WALL: No acute findings in the degenerated thoracic spine. No aggressive osseous lesions. IMPRESSION: 1. Compared to 11/11/2016, multiple new nodules are present in the right lung, highly suggestive of infectious bronchiolitis and bronchopneumonia. No associated pleural effusion or hilar lymphadenopathy. 2. There are old nodular foci in both lungs, as well, include a lesion of mixed attenuation in the posterior right lung apex. Whereas the groundglass component of this lesion has not appreciably changed, the irregular solid component continues to increase in size, which is suspicious for carcinoma. 3. Cholelithiasis.
--- NOTE | 2017-06-17 22:07 | History & Physical ---
Az CORTES,Lory 06/17/176: General Information and HPI MD Statement: I have seen and personally examined MIMI PARK and documented this H&P. The patient is a 67 year old M who presented with a patient stated chief complaint of [CHEST PAIN AND PALPITATION]. Source of Information: patient, old records Exam Limitations: no limitations History of Present Illness: 67 year old male with PMH significant for CAD s/p RCA stent (11/2016), HTN, HLD, COPD, and left BKA had an incision and drainage of left facial abscess, culture was positive for MRSA, he was treated with vancomycin while in the hospital and was DC on on 06/09/17 on Bacterim. Patient reports that he has been having chest pain in the mid chest radiating to the left arm for the past few weeks. Patient reports that he had chest pain that was severe last night and he was supposed to go to the ED but the pain subsided spontaneously. Patient reports that this morning his blood pressure was 158/80 and his heart rate was 112. He went to his PCP and was found to have heart rate of 117 and was advised to come to the hospital for further evaluation. He also reports having nausea most of the time associated with lightheadedness. In addition he complains of dysuria and burning micturition for the past 2 weeks however he denies any hematuria, flank pain, fever or chills. He complains of severe right hip pain especially when he is standing up. Patient is on oxycodone 15 mg for chronic hip pain. In addition the patient endorses mild cough with scant expectoration. Patient has a scheduled appointment with Dr. Blancas next and he is also supposed to get stress test however he is not sure about the exact date. Vital signs on admission: Blood pressure 160/90, pulse 101, respiratory 20, pulse ox 96 on room air labs on Admission: WBC 14, granulocytes 73.3, hemoglobin 11, hematocrit 34.5, platelet 412, sodium 137, potassium 4.6, BUN 25, creatinine 2.2, glucose 120, lactic acid 1.4, calcium 9, AST 10, AST 20,, PT 11.3, INR 1.04, d-dimer 434, Allergies/Medications Allergies: Coded Allergies: No Known Allergies (06/05/17) Home Med list Albuterol Sulfate (Proair Hfa) 8.5 GM HFA.AER.AD 2 PUF INH Q6 PRN COPD Amlodipine Besylate (Norvasc) 10 MG TABLET 1 CAP PO DAILY HYPERTENSION Aspirin (Ecotrin*) 81 MG TABLET.DR 1 TAB PO DAILY HEART/BLOOD (Reported) Atorvastatin Calcium 40 MG TABLET 1 CAP PO DAILY CHOLESTEROL Clopidogrel Bisulfate (Clopidogrel) 75 MG TABLET 1 TAB PO DAILY STENT ( Reported) Furosemide (Lasix) 20 MG TABLET 1 TAB PO EOD EDEMA . Lisinopril 40 MG TABLET 1 CAP PO DAILY BP Nitroglycerin (Nitrostat) 0.4 MG TAB.SUBL 1 TAB SL AD PRN CHEST PAIN 1st sign of attack; may repeat every 5 minutes until relief; if pain persists after 3 tablets in 15 minutes, prompt medical att Omeprazole 40 MG CAPSULE.DR 1 CAP PO DAILY GERD (Reported) Oxycodone HCl 15 MG TABLET 1 TAB PO Q8H PAIN (Reported) Sulfamethoxazole/Trimethoprim (Bactrim Ds Tablet) 800 MG-160 MG TABLET 1 TAB PO BID ABSCESS Tamsulosin HCl (Flomax) 0.4 MG CAP.ER.24H 0.4 MG PO DAILY [facility] ( Reported) Past History Travel History Traveled to [place] past 21 day No Medical History Neurological: NONE EENT: NONE Cardiovascular: hypertension, hyperlipidemia Respiratory: COPD, emphysema Gastrointestinal: NONE Hepatic: NONE Renal: NONE Musculoskeletal: LEFT BKA Psychiatric: NONE Endocrine: NONE Blood Disorders: anemia Cancer(s): NONE FLUX TUBE ATTENDANT/Reproductive: NONE History of MRSA: Yes History of VRE: No History of CDIFF: No Influenza Vaccine: 11/10/16 Surgical History Surgical History: hip replacement (Right sided(2003)), left lower extremity BKA secondary to trauma Past Family/Social History Family History Relations & Conditions if any FATHER, , Age 60+. FH: myocardial infarction Psychosocial History Who Do You Live With? Friend Services at Home: None ETOH Use: denies use Illicit Drug Use: denies illicit drug use Functional Ability Ambulation: [facility] Review of Systems Review of Systems Constitutional: Reports: chills, diaphoresis. Cardiovascular: Reports: chest pain, edema, palpitations, peripheral edema. Denies: orthopena. Respiratory: Reports: cough, sputum production. Denies: hemoptysis, orthopnea, short of breath. GI: Reports: constipation, nausea. Denies: diarrhea, distention, bowel incontinence , melena, bloody stool. Genitourinary: Reports: dysuria, frequency. Denies: discharge, hematuria, hesitation, nocturia , pain. Musculoskeletal: Reports: back pain, joint pain. Skin: Denies: no symptoms. Neurological/Psychological: Denies: no symptoms. Exam & Diagnostic Data Last 24 Hrs of Vital Signs/I&O Vital Signs Date Time Temp Pulse Resp B/P B/P Pulse O2 O2 Flow FiO2 Mean Ox Delivery Rate 06/18 0041 98.4 70 18 110/64 100 Room Air 06/17 2243 97.9 69 20 87/56 97 Room Air 06/18 2015 98.7 88 20 99/56 06/18 2003 98.7 88 20 99/56 97 Room Air 06/17 1746 96.6 101 20 160/90 96 Room Air Room Air Intake & Output 06/18 0800 06/18 0000 06/17 1600 Intake Total Output Total Balance Patient 216 lb 230 lb Weight Weight Bed scale Reported by Patient Measurement Method Physical Exam General Appearance Alert, Oriented X3, Cooperative, No Acute Distress Skin No Rashes, No Breakdown, No Significant Lesion HEENT Atraumatic, PERRLA, EOMI, Mucous Membr. moist/pink Neck Supple, No JVD Cardiovascular Normal S1, Normal S2, No Murmurs Lungs Clear to Auscultation Abdomen Normal Bowel Sounds, Soft, No Tenderness Neurological Normal Speech, Normal Tone, Sensation Intact, Cranial Nerves 3-12 NL, Reflexes 2+ Extremities No Clubbing, No Cyanosis, 1 + pitting edema in LLE Vascular Normal Pulses Diagnostic Data EKG Results Normal sinus rhythm, heart rate 89, QTC 429, no acute STT wave changes Other Results Chest CT: 1. Compared to 11/11/2016, multiple new nodules are present in the right lung, highly suggestive of infectious bronchiolitis and bronchopneumonia. No associated pleural effusion or hilar lymphadenopathy. 2. There are old nodular foci in both lungs, as well, include a lesion of mixed attenuation in the posterior right lung apex. Whereas the groundglass component of this lesion has not appreciably changed, the irregular solid component continues to increase in size, which is suspicious for carcinoma. 3. Cholelithiasis. Assessment/Plan Assessment: 67 year old male with PMH significant for CAD s/p RCA stent (11/2016), HTN, HLD, COPD, and left BKA had an incision and drainage of left facial abscess, culture was positive for MRSA, he was treated with vancomycin while in the hospital and was DC on on 06/09/17 on Bacterim. Patient reports that he has been having chest pain in the mid chest radiating to the left arm for the past few weeks. Given his history of RCA stent, differential diagnosis includes restenosis of the stent. His leukocytosis might be due to UTI versus facial abscess Problem list: 1unstable angina 2tachycardia 3leukocytosis 4possible UTI 5hip pain 6AKI 7-history of chronic medical conditions including hypertension, hyperlipidemia, COPD 8-CT chest showed multiple new nodules with irregular started component suspicious for malignancy 9-elevated d-dimer Plan: Admit to telemetry Vitals every shift Serial tropes and EKG IV heparin drip Cardiology consult appreciated Urine analysis and urine cultures, blood culture for leukocytosis and hypotension Hold Lasix, lisinopril, Bactrim and any other nephrotoxic Start clindamycin capsule p.o. 300 mg every 6 Continue aspirin and Plavix and atorvastatin Close monitoring of kidney function pulmonary consult in the a.m. Patient is full code DVT prophylaxis with heparin Heart healthy diet As Ranked By This Provider Problem List: 1. Unstable angina 2. Palpitations 3. Acute renal failure Core Measures/Misc (10/27) Acute Coronary Syndrome ACS Diagnosis: No Congestive Heart Failure Congestive Heart Failure Diagnosis No Cerebrovascular Accident CVA/TIA Diagnosis: No VTE (View Protocol) VTE Risk Factors Age>40 No Mechanical VTE Prophylaxis d/t N/A MechProphylax Ordered No VTE Pharm Prophylaxis d/t NA PharmProphylax ordered Sepsis (View protocol) Sepsis Present: No Rachid Agarwal 06/18/17 0215: Resident Review Statement Resident Statement: examined this patient, discussed with internal corrosion specialist, agreed with internal corrosion specialist, discussed with family, reviewed EMR data (avail), discussed with nursing , discussed with case mgmt, reviewed images, amended to note Other Findings: This a 67-year-old man with medical history of CAD s/p RCA stent (11/2016) hypertension, hyperlipidemia, COPD not on home oxygen, status post right hip replacement, left BKA, coronary artery disease status post stent 2016. Patient presented to the emergency department due to complaining of chest pain. Patient reports that he has been having chest pain in the mid chest radiating to the left arm for the past few weeks. Patient reports that he had chest pain that was severe last night and he was supposed to go to the ED but the pain subsided spontaneously. Patient reports that this morning his blood pressure was 158/80 and his heart rate was 112. He went to his PCP and was found to have heart rate of 117 and was advised to come to the hospital for further evaluation. He also report burning sensation during urination he was recently discharged from [facility] and was treated for incision and drainage of left facial abscess, culture was positive for MRSA, he was treated with vancomycin and was discharged with Bacterimon 06/09/17. 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 also he recevied dose of ASA, metoprolol and after that his BP drop to 90s. Physical examination, lab and imaging as above. Problem list: -Acute kidney injury that can be due to low blood pressure and antibiotic. -Acute chest pain Plan: - Admit to telemetry floor - Vitals every shift - Serial troponin and EKGs - Continue heparin drip - Cardiology consultation in a.m. - Continue gentle hydration - Discontinue his Bactrim start the patient on clindamycin to complete his antibiotic course. - Obtain urine electrolytes - Follow blood culture done, obtain urinalysis and culture. - Hold the lisinopril, amlodipine as patient being hypotensive, continue aspirin and Plavix - Heart healthy diet - Pulmonary consult in A.M. - Pain pathway - DVT prophylaxis on heparin drip - Full code Elodia Dewey 06/18/17 0402: Attending MD Review Statement Attending Statement Attending MD Statement: examined this patient, discuss w/resident/PA/QUICK TECHNICIAN, agreed w/resident/PA/QUICK TECHNICIAN, reviewed EMR data (avail), reviewed images, amended to note Attending Assessment/Plan: cc: chest pain PMH: HTN, HLD, COPD, right hip replacement, left BKA, CAD S/P stent in November 2016 Patient came to ER for an episode of severe left-sided chest pain, piercing in nature, radiating to left arm, feeling left arm heaviness, pain started at rest, associated with palpitation, nausea and lightheadedness. Patient had been having such symptoms on and off since last 2 weeks, previous episode was yesterday and he was planning to take nitroglycerin but before he could take it the pain resolved by itself. Pain recurred again today. Patient was recently admitted for facial abscess, at that time patient was complaining of palpitations and chest pain, cardiology consult was obtained, outpatient stress test was planned but patient did not get done it so far. He has chronic cough without expectoration, denies any abdominal pain, acid reflux, heartburn, epigastric pain. Patient complains of urinary burning, it has been going on since last 2 weeks, denies any fever, chills at home, hematuria, flank pain, passing out episodes. Vitals: Afebrile, pulse 101, RR 20, blood pressure 160/90 on arrival dropped to 99/56, saturating 96% on room air On exam: A O 3, cooperative, no acute distress, neck supple, JVD normal, no lymphadenopathy, mucosa moist, no focal neurological deficit, right lower leg +2 edema, left BKA, no obvious skin rashes or inflammation CVS: S1-S2, RRR. RS: Clear to auscultate bilaterally. Abdomen: Soft, NT, ND, bowel sounds present. CT chest without contrast: 1. Compared to 11/11/2016, multiple new nodules are present in the right lung, highly suggestive of infectious bronchiolitis and bronchopneumonia. No associated pleural effusion or hilar lymphadenopathy. 2. There are old nodular foci in both lungs, as well, include a lesion of mixed attenuation in the posterior right lung apex. Whereas the groundglass component of this lesion has not appreciably changed, the irregular solid component continues to increase in size, which is suspicious for carcinoma. 3. Cholelithiasis. Assessment and plan 67-year-old male with extensive past medical history presented in ER for recurrent chest pain episode, he had similar episode today with severe left- sided chest pain as mentioned above. Patient has CAD with recent stent in November 2016, patient has been having anginal symptoms which appear typical. He needs further evaluation. Given his sudden drop in blood pressure from 160 to 90 systolic, CT chest without contrast was obtained to rule out any aortic pathology as a cause of chest pain (contrast cannot be given secondary to acute kidney injury). CT shows evidence of multiple new nodules on the right side concerning of bronchiolitis. Patient does not have any fever, chills, sputum production, he has chronic mild cough. Significance of this finding is unclear, we will get pulmonology involved. Also patient has elevated d-dimer, we will rule out PE as a cause of chest pain. At this point we will continue empiric heparin for unstable angina, which will cover PE as well. Patient was admitted from June 05 -June 09 for facial abscess secondary to MRSA, patient was discharged on Bactrim for 10 days, he has 4 more doses left. The patient's creatinine increased from 1.2 to 2.2, similar to previous hospitalization, I think it could be secondary to Bactrim, we will change antibiotic to clindamycin for 2 more days to complete the course. We will continue gentle hydration for acute kidney injury. + Unstable angina + Acute kidney injury + Elevated d-dimer rule out PE + History of HTN, HLD, COPD, right hip replacement, left BKA, CAD S/P stent in November 2016 - admit to telemetry - Continuous telemetry monitoring - Serial troponin and EKGs - 2-D echo in a.m. if significant increase in troponin - Cardiology consult in a.m. - Continue aspirin, statin, - Continue heparin drip - Hold antihypertensives, and Lasix - Blood culture, UA urine culture for leukocytosis and hypotension - Continue gentle hydration with normal saline - Continue by mouth clindamycin - Pulmonary consult in a.m.
--- NOTE | 2017-06-17 23:06 | RADIOLOGY REPORT ---
EXAMINATION: XR HIP, RIGHT CLINICAL INFORMATION: Evaluate for hip collection status post total hip replacement. Pain in the right hip fever. COMPARISON: Multiple prior examinations including the right hip February 2014 and December 2013. TECHNIQUE: Two views of the right hip. FINDINGS: Postop changes related to right total hip arthroplasty. Screws noted in the acetabular region. Cerclage wires noted in the femoral region. No new periprosthetic lucency or fracture identified. The may be additional wire-shaped density overlying the lateral aspect of the proximal femur IMPRESSION: Stable appearance of the right total hip arthroplasty. No findings suspicious for fluid collection. Consider additional imaging with CT to evaluate for para-articular fluid collection
[2017-06-18 00:41] VITALS: BP 110/64
--- NOTE | 2017-06-18 04:04 | Admission Certification ---
Admission Certification Certification Statement - As attending physician, I certify that at the time of - admission, based on clinical presentation, severity of - symptoms, need for further diagnostic testing and - therapeutic interventions, and risk of adverse outcomes - without in-hospital treatment, in my clinical assessment, - this patient requires an acute hospital stay for a minimum - of two nights or longer. I have also considered psychsocial - factors such as support system, advanced age, financial - issues, cognitive issues, and failed out-patient treatments, - past re-admission history, safety of patient, and lack of - compliance as applicable. Specific rationale supporting this admission is: Chest pain rule out ACS, acute kidney injury
[2017-06-18 04:54] LABS: ABSOLUTE BASOPHIL COUNT 0 /CUMM (0.0-0.2); ABSOLUTE EOSINOPHIL COUNT 0.4 /CUMM (0.0-0.7); ABSOLUTE GRANULOCYTE CT 6.5 /CUMM (1.4-6.5); ABSOLUTE LYMPH COUNT 2.2 /CUMM (1.2-3.4); ABSOLUTE MONOCYTE COUNT 0.9 /CUMM (0.10-0.60); BASOPHIL % 0.3 % (0.0-2.0); MEAN CORPUSCULAR HGB 23.5 PG (27.0-31.0); MEAN CORPUSCULAR HGB CONC 31.2 G/DL (33.0-37.0); MEAN CORPUSCULAR VOLUME 75.4 FL (80.0-94.0); MEAN PLATELET VOLUME 6.8 FL (7.4-10.4); PLATELET COUNT 312 /CUMM (130-400); RBC DISTRIBUTION WIDTH 19.8 % (11.5-14.5); RED BLOOD CELL CT 3.79 /CUMM (4.70-6.10)
[2017-06-18 05:12] LABS: HEMATOCRIT 28.6 % (42-52)
[2017-06-18 05:14] LABS: PTT 43 SEC (25-37)
[2017-06-18 07:21] VITALS: BP 120/62
[2017-06-18] MEDS ORDERED: CARVEDILOL6.25 M1 PO (07:24)
--- NOTE | 2017-06-18 08:09 | PN- Housestaff ---
Astrid CORTES,Lupillo 06/18/17 0808: Subjective Follow-up For: DENIS hypotension Tele-Events Since Last Visit: sinus rhythm/sinus bradycardia HR 50s-70s Subjective: patient complaining of 3/10 left sided chest pain no dyspnea or palpitations Review of Systems Constitutional: Reports: see HPI. Objective Last 24 Hrs of Vital Signs/I&O Vital Signs Date Time Temp Pulse Resp B/P B/P Pulse O2 O2 Flow FiO2 Mean Ox Delivery Rate 06/19 799 Room Air 06/18 0721 97.8 61 18 120/62 96 Room Air 06/18 0041 98.4 70 18 110/64 100 Room Air 06/17 2243 97.9 69 20 87/56 97 Room Air 06/18 2015 98.7 88 20 99/56 06/18 2003 98.7 88 20 99/56 97 Room Air 06/17 1746 96.6 101 20 160/90 96 Room Air Room Air Intake & Output 06/18 1600 06/18 0800 05 0000 Intake Total 1080 Output Total 1000 Balance 80 Intake, IV 960 Intake, Oral 120 Output, Urine 1000 Patient 97.976 kg 104.326 kg Weight Weight Bed scale Reported by Patient Measurement Method Physical Exam General Appearance: Alert, Oriented X3, Cooperative, No Acute Distress Cardiovascular: Regular Rate, Normal S1, Normal S2, No Murmurs Lungs: Clear to Auscultation, Normal Air Movement Abdomen: Normal Bowel Sounds, Soft, No Tenderness, No Masses Extremities: No Clubbing, No Cyanosis, No Edema, Normal Pulses, L BKA Current Medications: Current Medications Sig/Jonny Start time Last Medication Dose Route Stop Time Status Admin Acetaminophen 650 MG Q6P PRN 06/17 2145 AC PO Albuterol Sulfate 2 PUF Q6 PRN 06/17 2200 AC INH Aspirin 0 .STK-MED ONE 06/17 2018 DC PO Aspirin 81 MG ONCE ONE 06/17 2014 DC 06/17 PO 06/17 Aspirin Buffered 81 MG DAILY 06/18 899 AC 06/18 PO 08 Atorvastatin Calcium 40 MG DAILY 06/18 899 AC 06/18 PO 08 Carvedilol 6.25 MG BID 06/18 1005 AC PO Clindamycin 300 MG Q6 06/17 2359 AC 06/18 PO 0623 Clopidogrel Bisulfate 75 MG DAILY 06/18 899 AC 05/09 PO 0821 Enoxaparin Sodium 100 MG ONCE ONE 06/17 2044 CAN SC 06/17 2045 Heparin Sodium 5,900 UNIT ONCE ONE 06/18 629 DC 06/18 (Porcine) IV 06/18 630 06 Heparin Sodium 4,900 UNIT ONCE ONE 06/18 599 CAN (Porcine) IV 06/18 0800 Heparin Sodium 0 .STK-MED ONE 06/17 2205 DC (Porcine) .ROUTE Heparin Sodium 25,000 UNIT Q24H 06/17 2144 AC 06/17 (Porcine) IV 220 Sodium Chloride 500 ML Heparin Sodium 4,000 UNIT ONCE ONE 06/17 2144 DC 06/17 (Porcine) IV 06/17 Hydrocodone Bitart/ 1 TAB Q6P PRN 06/17 2144 Acetaminophen PO Metoprolol Tartrate 0 .STK-MED ONE 06/17 2017 DC PO Metoprolol Tartrate 12.5 MG ONCE ONE 06/17 2014 DC 06/17 PO 06/18 2015 2016 Nitroglycerin 0.5 GM Q6H 06/18 0808 AC 06/18 TOP 1013 Nitroglycerin 0.4 MG ONCE ONE 06/17 2015 CAN SL 06/18 2015 Omeprazole 40 MG DAILY AC 06/18 0700 AC 06/18 PO 0623 Oxycodone HCl 0 .STK-MED ONE 06/17 2018 DC PO Oxycodone HCl 0 .STK-MED ONE 06/17 2018 DC PO Oxycodone HCl 15 MG ONCE ONE 06/17 2014 DC 06/17 PO 06/18 2015 2016 Oxycodone/ 2 TAB Q6P PRN 06/17 2144 AC 06/18 Acetaminophen PO 0633 Sodium Chloride 1,000 ML BOLUS ONE 06/17 2300 DC 06/17 IV 06/17 2359 2321 Sodium Chloride 1,000 ML .Q10H 06/17 2144 AC 08 IV 0100 Sodium Chloride 500 ML BOLUS ONE 06/17 2044 DC 06/17 IV 06/18 2143 220 Last 24 Hrs of Lab/Keith Results Last 24 Hrs of Labs/Mics: Laboratory Tests 06/18/17 0400: Anion Gap 9, Estimated GFR 32 L, BUN/Creatinine Ratio 12.4, Troponin I < 0.01, APTT 43 H, CBC w Diff NO MAN DIFF REQ, RBC 3.79 L, MCV 75.4 L, MCH 23.5 L, MCHC 31.2 L, RDW 19.8 H, MPV 6.8 L, Gran % 65.0, Lymphocytes % 22.1, Monocytes % 8.6, Eosinophils % 4.0, Basophils % 0.3, Absolute Granulocytes 6.5, Absolute Lymphocytes 2.2, Absolute Monocytes 0.9 H, Absolute Eosinophils 0.4, Absolute Basophils 0 06/18/17329: Urinalysis LIGHT H, Urine Color YEL, Urine Clarity CLEAR, Urine pH 6.0, Ur Specific [place] <= 1.005, Urine Protein NEG, Urine Ketones NEG, Urine Nitrite NEG, Urine Bilirubin NEG, Urine Urobilinogen 0.2, Ur Leukocyte Esterase SMALL H , Ur Microscopic SEDIMENT EXAMINED, Urine WBC 10-15 H, Ur Epithelial Cells MANY H, Urine Bacteria RARE H, Micro UA Comment TRICHOMONAS SEEN H, Urine Hemoglobin NEG, Urine Glucose NEG 06/17/17 2300: Troponin I < 0.01 06/17/17 2105: Lactic Acid 1.3 06/17/17 1802: Anion Gap 13, Estimated GFR 30 L, BUN/Creatinine Ratio 11.4, Glucose 120 H, Lactic Acid 1.4, Calcium 9.0, Magnesium 1.9, Total Bilirubin 0.4, AST 10 L, ALT 20 L, Alkaline Phosphatase 109, Troponin I < 0.01, Sac-N-Qqodxzmahjv Pept 36.7, Total Protein 6.7, Albumin 4.1, Globulin 2.6, Albumin/Globulin Ratio 1.6, TSH & T3 &Free T4 Intrp 0.805, PT 11.3, INR 1.04, APTT 26, D-Dimer High Sensitivty 434 H, CBC w Diff NO MAN DIFF REQ, RBC 4.57 L, MCV 75.5 L, MCH 24.1 L, MCHC 31.9 L, RDW 20.2 H, MPV 6.8 L, Gran % 73.3, Lymphocytes % 15.0 L, Monocytes % 7.4 , Eosinophils % 3.1, Basophils % 1.2, Absolute Granulocytes 10.3 H, Absolute Lymphocytes 2.1, Absolute Monocytes 1.0 H, Absolute Eosinophils 0.4, Absolute Basophils 0.2 Microbiology 06/18 329 URINE ROUT: Legionella Antigen - COMP 06/18 329 URINE ROUT: Streptococcus pneumoniae Antigen (M - COMP 05/09 0330 URINE ROUT: Urine Culture - RECD 06/17 2300 BLOOD: Blood Culture - RECD 06/17 2240 BLOOD: Blood Culture - RECD 06/17 2208 LOWER RESP: Respiratory Culture - COLB 06/17 2208 LOWER RESP: Gram Stain - COLB Assessment/Plan Assessment: 67 year old male with PMH significant for CAD s/p RCA stent (11/2016), HTN, HLD, COPD, and left BKA had an incision and drainage of left facial abscess, culture was positive for MRSA, he was treated with vancomycin while in the hospital and was DC on on 06/09/17 on Bactrim presented with left sided chest pain. Unstable angina: Contine aspirin, plavix, statin, beta manohar and heparin gtt CBC dropped on heparin gtt, likely dilutional, guiaic bowel movement Troponins and EKGs negative for ischemia Cardiology consulted, follow up recommendations Patient still complaining of chest pain today, start nitropaste 0.5 transdermal q6h Patient was tachycardic on arrival with hypotension, vitals normal now Continue to monitor on telemetry, no events Echocardiogram LVEF normal, stage I diastolic dysfunction 2015 DENIS: Hold Lasix, lisinopril, Bactrim and any other nephrotoxic agents Creatinine 1.2 on discharge, 2.1 today Continue IVFs Trend renal function Leukocytosis: Likely secondary to dehydration, resolved with hydration Bactrim changed to Clindamycin for left facial abscess because of concerns with DENIS Course to be completed 06/19/17 UA has some white cells but patient has no complaints of dysuria Hypertension: Continue coreg and nitro ACEi held for DENIS Currently normotensive Norvasc held Hyperlipidemia: Continue statin therapy COPD CT chest showed multiple new nodules, some suspicious for malignancy Compared to 11/11/2016, multiple new nodules are present in the right lung, highly suggestive of infectious bronchiolitis and bronchopneumonia. No associated pleural effusion or hilar lymphadenopathy. There are old nodular foci in both lungs, as well, include a lesion of mixed attenuation in the posterior right lung apex. Whereas the groundglass component of this lesion has not appreciably changed, the irregular solid component continues to increase in size, which is suspicious for carcinoma. Pulmonology consulted, appreciate recommendations Heart healthy diet DVT ppx-heparin 5000 units subcutaneous q8h Full code Problem List: 1. Acute renal failure Pain Ratin Pain Location: n/a Pain Goal: Pain 4 or less Pain Plan: prn Tomorrow's Labs & Rationales: bep, cbc Yosvany CORTESHeatheraudrey 06/18/17 1105: Attending MD Review Statement Attending Statement Attending MD Statement: examined this patient, discuss w/resident/PA/LARRY OPERATOR, agreed w/resident/PA/LARRY OPERATOR, reviewed EMR data (avail) Attending Assessment/Plan: 67M PMH HTN, HLD, COPD, right hip replacement, left BKA, CAD S/P stent in November 2016, found to have left facial abscess and cellulitis s/p I&D in ED on 06/03 with wound cultures growing mRSA, recently admitted for DENIS and dehydration , discharged home on Bactrim, returns now with persistent left sided chest pain at rest, with dehydration and DENIS. He reports 3/10 chest pain today, left sided, substernal, non-radiating. Exam is benign. Facial abscess appears nearly resolved. Does not appear edematous. Cr 2.1 today, upon previous discharge was 1.2. 1. Unstable angina 2. DENIS 3. Hypotension Plan - Continue on telemetry - Continue Clindamycin, 3 more days to complete course - Continue heparin drip, ASA, Plavix, statin, nitropaste - Cardiology consult - Stop Lasix, gentle IV hydration - Monitor renal function - Serial EKG and troponin - Continue home medications - DVT PPx
[2017-06-18 11:35] VITALS: BP 140/68
--- NOTE | 2017-06-18 12:35 | Cons- Cardiology ---
General Information and HPI Consulting Request Date of Consult: 06/18/17 Requested By: Joelle Bar MD History of Present Illness: Cristóbal is a 67 year old male with history of hypertension, dyslipidemia, tobacco abuse and a family history of premature coronary artery disease. He is now status post PCI of his right coronary artery for a 70% proximal stenosis. Minimal luminal iregularities were also noted in the distal LAD and his EF was normal at 60%. He initially had complete resolution of his discomfort but a couple months ago noted recurrent discomfort. Yesterday the patient again noted a left chest discomfort which, at times, is associated with a left arm numbness. It is described as a moderate intensity, sharp discomfort that progresses to a pressure sensation. It begins at rest but is exacerbated by physical activity as well as by breathing and is relieved by manual palpation. He reports chronic nausea without any clear exacerbation by chest pain. He also has lightheadedness and yesterday noted rapid palpitations. Cristóbal was recently admitted to [facility] with a facial discomfort related to a left facial abcess that was treated with Bactrim. He was found at that time to have an elevated creatinine of 3.7 which has improved but is not quite to baseline. On that admission he also reported chest discomfort. His echo showed a normal EF of 65% with mild LVH, trace MR and mild to moderate AI. Allergies/Medications Allergies: Coded Allergies: No Known Allergies (06/05/17) Home Med List: Albuterol Sulfate (Proair Hfa) 8.5 GM HFA.AER.AD 2 PUF INH Q6 PRN COPD Amlodipine Besylate (Norvasc) 10 MG TABLET 1 CAP PO DAILY HYPERTENSION Aspirin (Ecotrin*) 81 MG TABLET.DR 1 TAB PO DAILY HEART/BLOOD (Reported) Atorvastatin Calcium 40 MG TABLET 1 CAP PO DAILY CHOLESTEROL Carvedilol 6.25 MG TABLET 1 TAB PO BID CAD (Reported) Clopidogrel Bisulfate (Clopidogrel) 75 MG TABLET 1 TAB PO DAILY STENT ( Reported) Furosemide (Lasix) 20 MG TABLET 1 TAB PO EOD EDEMA . Lisinopril 40 MG TABLET 1 CAP PO DAILY BP Nitroglycerin (Nitrostat) 0.4 MG TAB.SUBL 1 TAB SL AD PRN CHEST PAIN 1st sign of attack; may repeat every 5 minutes until relief; if pain persists after 3 tablets in 15 minutes, prompt medical att Omeprazole 40 MG CAPSULE.DR 1 CAP PO DAILY GERD (Reported) Oxycodone HCl 15 MG TABLET 1 TAB PO Q8H PAIN (Reported) Sulfamethoxazole/Trimethoprim (Bactrim Ds Tablet) 800 MG-160 MG TABLET 1 TAB PO BID ABSCESS Tamsulosin HCl (Flomax) 0.4 MG CAP.ER.24H 0.4 MG PO DAILY BLADDER HEALTH ( Reported) Past History Travel History Traveled to [place] past 21 day No Medical History Neurological: NONE EENT: NONE Cardiovascular: hypertension, hyperlipidemia Respiratory: COPD, emphysema Gastrointestinal: NONE Hepatic: NONE Renal: NONE Musculoskeletal: LEFT BKA Psychiatric: NONE Endocrine: NONE Blood Disorders: anemia Cancer(s): NONE 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 FH: myocardial infarction Psychosocial History Who Do You Live With? Friend Services at Home: None Smoking Status: Current Everyday Smoker ETOH Use: denies use Illicit Drug Use: denies illicit drug use Functional Ability Ambulation: [facility] Exam & Diagnostic Data Vital Signs and I&O Vital Signs Date Time Temp Pulse Resp B/P B/P Pulse O2 O2 Flow FiO2 Mean Ox Delivery Rate 06/18 1136 67 140/68 06/18 1135 67 140/68 06/19 799 Room Air 06/18 0721 97.8 61 18 120/62 96 Room Air 06/18 0041 98.4 70 18 110/64 100 Room Air 06/17 2243 97.9 69 20 87/56 97 Room Air 06/18 2015 98.7 88 20 99/56 06/18 2003 98.7 88 20 99/56 97 Room Air 06/17 1746 96.6 101 20 160/90 96 Room Air Room Air Intake & Output 06/18 1600 06/19 0700 06/18 0000 06/17 1600 06/18 0700 06/17 0000 Intake Total 1080 Output Total 1000 Balance 80 Intake, IV 960 Intake, Oral 120 Output, Urine 1000 Patient 216 lb 230 lb Weight Weight Bed scale Reported by Patient Measurement Method Physical Exam: General: WD/WN male in NAD; alert and oriented x 3 HEENT: NC/AT, PERRL, EOMI Neck: no JVD, no carotid bruit Heart: RRR with 3/6 systolic murmur Lungs: clear bilaterally Abdomen: soft, NT, +ve bowel sounds Extremities: no edema, Left BKA Assessment/Plan Assessment/Plan * This patient has symptoms that are suggestive of myocardial ischemia although with some atypical features. Despite almost unremitting chest pain he does not demonstrate any rise in cardiac enzymes or electrocardiographic changes. In addition, his pain tends to be pleuritic and exacerbated by deep inhalation which, of course, will be the case when he is more active in addition to when he actively tries to inhale deeply. In consideration of his abnormal chest CT, a pleuritic cause of his pain needs to be considered. He is not currenlty a good candidate for a cardiac catheterization due to his renal disfunction but risk stratification with a pharmacologic stress test is reasonable and recommended since the patient is in the window period for in stent restenosis. We will pursue medical therapy for now including a NTG patch at 0.4mg/hr, aspirin and Plavix. Continue Carvedilol and a statin. * This patient has an acute rise in creatinine. Would check a post void residual and evalutate for obstruction. Avoid NSAIDs and hold Lisinopril. If Lisinopril is restarted it will need to be given at a lower dose. Hold Lasix. Consult Acknowledgment - Thank you for your consult request.
[2017-06-18 13:02] LABS: PTT 54 SEC (25-37)
--- NOTE | 2017-06-18 13:32 | Cons- Pulmonary ---
General Information and HPI Consulting Request Date of Consult: 06/18/17 Requested By: med team History of Present Illness: 67 year old male with PMH significant for CAD s/p RCA stent (11/2016), HTN, HLD, COPD, and left BKA had an incision and drainage of left facial abscess, culture was positive for MRSA, he was treated with vancomycin while in the hospital and was DC on on 06/09/17 on Bactrim. Patient reports that he has been having chest pain in the mid chest radiating to the left arm for the past few weeks. Patient reports that he had chest pain, He had palpitations adn tachy and came to the ed for eval PT did have a chest ct and was abnomal and hence this consult Had sig smoking history more than 40 pack yr Has chronic hoarse voice He complains of severe right hip pain especially when he is standing up. Patient is on oxycodone 15 mg for chronic hip pain. Vital signs on admission: Blood pressure 160/90, pulse 101, respiratory 20, pulse ox 96 on room air labs on Admission: WBC 14, granulocytes 73.3, hemoglobin 11, hematocrit 34.5, platelet 412, sodium 137, potassium 4.6, BUN 25, creatinine 2.2, glucose 120, lactic acid 1.4, calcium 9, AST 10, AST 20,, PT 11.3, INR 1.04, d-dimer 434, Reports: chills, diaphoresis. Cardiovascular: Reports: chest pain, edema, palpitations, peripheral edema. Denies: orthopena. Respiratory: Reports: cough, sputum production. Denies: hemoptysis, orthopnea, short of breath. GI: Reports: constipation, nausea. Denies: diarrhea, distention, bowel incontinence , melena, bloody stool. Genitourinary: Reports: dysuria, frequency. Denies: discharge, hematuria, hesitation, nocturia , pain. Musculoskeletal: Reports: back pain, joint pain. Skin: Denies: no symptoms. Neurological/Psychological: Denies: no symptoms. Allergies/Medications Allergies: Coded Allergies: No Known Allergies (06/05/17) Home Med List: Albuterol Sulfate (Proair Hfa) 8.5 GM HFA.AER.AD 2 PUF INH Q6 PRN COPD Amlodipine Besylate (Norvasc) 10 MG TABLET 1 CAP PO DAILY HYPERTENSION Aspirin (Ecotrin*) 81 MG TABLET.DR 1 TAB PO DAILY HEART/BLOOD (Reported) Atorvastatin Calcium 40 MG TABLET 1 CAP PO DAILY CHOLESTEROL Carvedilol 6.25 MG TABLET 1 TAB PO BID CAD (Reported) Clopidogrel Bisulfate (Clopidogrel) 75 MG TABLET 1 TAB PO DAILY STENT ( Reported) Furosemide (Lasix) 20 MG TABLET 1 TAB PO EOD EDEMA . Lisinopril 40 MG TABLET 1 CAP PO DAILY BP Nitroglycerin (Nitrostat) 0.4 MG TAB.SUBL 1 TAB SL AD PRN CHEST PAIN 1st sign of attack; may repeat every 5 minutes until relief; if pain persists after 3 tablets in 15 minutes, prompt medical att Omeprazole 40 MG CAPSULE.DR 1 CAP PO DAILY GERD (Reported) Oxycodone HCl 15 MG TABLET 1 TAB PO Q8H PAIN (Reported) Sulfamethoxazole/Trimethoprim (Bactrim Ds Tablet) 800 MG-160 MG TABLET 1 TAB PO BID ABSCESS Tamsulosin HCl (Flomax) 0.4 MG CAP.ER.24H 0.4 MG PO DAILY BLADDER HEALTH ( Reported) Review of Systems Review of Systems Constitutional: Reports: see HPI. Past History Travel History Traveled to [place] past 21 day No Medical History Neurological: NONE EENT: NONE Cardiovascular: hypertension, hyperlipidemia Respiratory: COPD, emphysema Gastrointestinal: NONE Hepatic: NONE Renal: NONE Musculoskeletal: LEFT BKA Psychiatric: NONE Endocrine: NONE Blood Disorders: anemia Cancer(s): NONE TRIPLE VALVE TESTER/Reproductive: NONE Surgical History Surgical History: hip replacement (Right sided(2003)), left lower extremity BKA secondary to trauma Family History Relations & Conditions If Any: FATHER, , Age 60+. FH: myocardial infarction Psychosocial History Who Do You Live With? Friend Services at Home: None Smoking Status: Current Everyday Smoker ETOH Use: denies use Illicit Drug Use: denies illicit drug use Functional Ability Ambulation: [facility] Exam & Diagnostic Data Last 24 Hrs of Vital Signs/I&O Vital Signs Date Time Temp Pulse Resp B/P B/P Pulse O2 O2 Flow FiO2 Mean Ox Delivery Rate 06/18 1136 67 140/68 06/18 1135 67 140/68 06/18 0800 Room Air 06/18 0621 97.8 61 18 120/62 96 Room Air 06/18 0041 98.4 70 18 110/64 100 Room Air 06/17 2242 97.9 69 20 87/56 97 Room Air 06/18 2015 98.7 88 20 99/56 06/18 2003 98.7 88 20 99/56 97 Room Air 06/17 1746 96.6 101 20 160/90 96 Room Air Room Air Intake & Output 06/18 1600 06/18 0800 06/18 0000 Intake Total 1080 Output Total 1000 Balance 80 Intake, IV 960 Intake, Oral 120 Output, Urine 1000 Patient 216 lb 230 lb Weight Weight Bed scale Reported by Patient Measurement Method Last 48 Hrs of Labs/Keith: Laboratory Tests 06/18/17 1135: APTT 54 H 06/18/17 0400: Anion Gap 9, Estimated GFR 32 L, BUN/Creatinine Ratio 12.4, Troponin I < 0.01, APTT 43 H, CBC w Diff NO MAN DIFF REQ, RBC 3.79 L, MCV 75.4 L, MCH 23.5 L, MCHC 31.2 L, RDW 19.8 H, MPV 6.8 L, Gran % 65.0, Lymphocytes % 22.1, Monocytes % 8.6, Eosinophils % 4.0, Basophils % 0.3, Absolute Granulocytes 6.5, Absolute Lymphocytes 2.2, Absolute Monocytes 0.9 H, Absolute Eosinophils 0.4, Absolute Basophils 0 06/18/17 0330: Urinalysis LIGHT H, Urine Color YEL, Urine Clarity CLEAR, Urine pH 6.0, Ur Specific [place] <= 1.005, Urine Protein NEG, Urine Ketones NEG, Urine Nitrite NEG, Urine Bilirubin NEG, Urine Urobilinogen 0.2, Ur Leukocyte Esterase SMALL H , Ur Microscopic SEDIMENT EXAMINED, Urine WBC 10-15 H, Ur Epithelial Cells MANY H, Urine Bacteria RARE H, Micro UA Comment TRICHOMONAS SEEN H, Urine Hemoglobin NEG, Urine Glucose NEG 06/17/17 2300: Troponin I < 0.01 06/17/17 2105: Lactic Acid 1.3 06/17/17 1802: Anion Gap 13, Estimated GFR 30 L, BUN/Creatinine Ratio 11.4, Glucose 120 H, Lactic Acid 1.4, Calcium 9.0, Magnesium 1.9, Total Bilirubin 0.4, AST 10 L, ALT 20 L, Alkaline Phosphatase 109, Troponin I < 0.01, Oyh-J-Wunqcigaqwg Pept 36.7, Total Protein 6.7, Albumin 4.1, Globulin 2.6, Albumin/Globulin Ratio 1.6, TSH & T3 &Free T4 Intrp 0.805, PT 11.3, INR 1.04, APTT 26, D-Dimer High Sensitivty 434 H, CBC w Diff NO MAN DIFF REQ, RBC 4.57 L, MCV 75.5 L, MCH 24.1 L, MCHC 31.9 L, RDW 20.2 H, MPV 6.8 L, Gran % 73.3, Lymphocytes % 15.0 L, Monocytes % 7.4 , Eosinophils % 3.1, Basophils % 1.2, Absolute Granulocytes 10.3 H, Absolute Lymphocytes 2.1, Absolute Monocytes 1.0 H, Absolute Eosinophils 0.4, Absolute Basophils 0.2 Microbiology 06/18 329 URINE ROUT: Legionella Antigen - COMP 06/18 329 URINE ROUT: Streptococcus pneumoniae Antigen (M - COMP Assessment/Plan Impression/Plan: General Appearance Alert, Oriented X3, Cooperative, No Acute Distress Skin No Rashes, No Breakdown, No Significant Lesion HEENT Atraumatic, PERRLA, EOMI, Mucous Membr. moist/pink Neck Supple, No JVD Cardiovascular Normal S1, Normal S2, No Murmurs Lungs Clear to Auscultation Abdomen Normal Bowel Sounds, Soft, No Tenderness Neurological Normal Speech, Normal Tone, Sensation Intact, Cranial Nerves 3-12 NL, Reflexes 2+ Extremities No Clubbing, No Cyanosis, 1 + pitting edema in LLE Vascular Normal Pulses Chest CT: UNGS AND PLEURA: Trachea and mainstem bronchi are widely patent and normal in caliber. Mild, chronic thickening of bronchial venegas in both lungs. There is a nodule of mixed attenuation in the posterior right lung apex (image 114, series 4); the groundglass component, which measures approximately 1.1 cm, remains unchanged. The irregular, solid component, which measures approximately 0.6 x 0.9 cm, has slightly increased in size compared to 11/11/2016 and is definitely larger compared to 07/17/2015. There are old micronodular opacities and groundglass opacities in upper lobes that remain unchanged compared to 11/11/2016. There are new nodules in the right lung, as well. For example, a new, irregular nodular focus measuring approximately 0.4 x 0.8 cm present in the anterior right upper lobe (image 216, series 4). Multiple new clustered micronodules are present in the anterior segment of the right upper lobe near the level of the minor fissure. The largest new, irregular nodule in the lateral segment of the right lower lobe abuts the adjacent major fissure and is difficult to precisely measure given its irregular border and its juxtaposition to adjacent vessels and bronchi; it measures approximately 1.3 cm, and there are multiple other new nodules in the right lower lobe peripheral to this lesion. Chronic subsegmental atelectasis/scarring in the lingula adjacent to the major fissure. No pleural effusion or pneumothorax. MEDIASTINUM: Three-vessel coronary artery atherosclerotic calcification. Mild atherosclerosis of the thoracic aorta without aneurysm. Moderate-sized hiatal hernia. Thyroid gland is unremarkable. LYMPHATICS: No lymphadenopathy. UPPER ABDOMEN: Cholelithiasis. Again noted is mild fullness of the adrenal glands. No acute findings in the examined upper abdomen compared to 11/11/2016. SKELETAL AND CHEST WALL: No acute findings in the degenerated thoracic spine. No aggressive osseous lesions. 1. Compared to 11/11/2016, multiple new nodules are present in the right lung, highly suggestive of infectious bronchiolitis and bronchopneumonia. No associated pleural effusion or hilar lymphadenopathy. 2. There are old nodular foci in both lungs, as well, include a lesion of mixed attenuation in the posterior right lung apex. Whereas the groundglass component of this lesion has not appreciably changed, the irregular solid component continues to increase in size, which is suspicious for carcinoma. 3. Cholelithiasis. IMPRESSION This is a gentleman with history of hypertension, dyslipidemia, significant smoking history, family history of premature coronary artery disease, previous PCI of the right coronary artery with preserved ejection fraction, recent cellulitis of the face due to staph aureus which was methicillin-resistant status post antibiotic treatment, recent acute kidney injury which is improving, came into the hospital with palpitations and chest discomfort suggestive of myocardial ischemia now being followed by cardiology and patient does have chronic kidney disease and now being conservatively managed. Patient was on Bactrim recently. He did have a CT scan of the chest without contrast which showed multiple abnormalities hence this consult. His issues include Multiple lung nodules which are slowly increasing in size the largest one which is increasing in size is 0.9 cm which would require a PET scan as an outpatient. Patient is high risk for malignancy as he has had more than [id number]-voec smoking history and he continues to unfortunately smoke no clinical evidence suggestive of significant COPD but however he needs to have a full pulmonary function tests as a suspect he does have mild to moderate COPD Chronic kidney disease with acute renal insufficiency now which is slowly improving. Patient is not a candidate for any angiogram etc. patient has been on Bactrim, has been on lisinopril may have significant reversible renal insufficiency which needs to be monitored. Recent left facial cellulitis with bilateral small lung nodules rule out any septic emboli but this seems less likely clinically Chronic anemia workup patient is now on anticoagulation Significant chronic hoarseness of voice, needs outpatient evaluation by ENT Acute coronary syndrome followed by cardiology Elevated d-dimer unlikely pulmonary embolism but this may need to be ruled out. Chronic pain syndrome and multiple other issues as noted above RECOMMENDATION Order a lower extremity Doppler if it's negative VQ scan Needs outpatient PET scan patient is aware of appropriate follow-up Watch his renal function Check echocardiogram to evaluate right ventricular dysfunction May benefit from gentle IV fluids Anticoagulation per cardiology Check stool for heme Needs ear nose and throat evaluation as an outpatient Watch for fever etc. and may require an infectious disease consult if he continues to have any evidence suggestive of infection but seems less likely at this time Smoking cessation counseling done Consult Acknowledgment - Thank you for your consult request.
[2017-06-18 14:38] VITALS: BP 104/66
[2017-06-18 22:12] LABS: PTT 95 SEC (25-37)
[2017-06-18 22:42] VITALS: BP 124/78
[2017-06-19 05:49] LABS: ABSOLUTE BASOPHIL COUNT 0 /CUMM (0.0-0.2); ABSOLUTE EOSINOPHIL COUNT 0.3 /CUMM (0.0-0.7); ABSOLUTE GRANULOCYTE CT 4.8 /CUMM (1.4-6.5); ABSOLUTE LYMPH COUNT 1.9 /CUMM (1.2-3.4); ABSOLUTE MONOCYTE COUNT 0.7 /CUMM (0.10-0.60); BASOPHIL % 0.4 % (0.0-2.0); EOSINOPHIL % 3.6 % (0-5); GRANULOCYTE % 62.5 % (42.2-75.2); HEMATOCRIT 26.9 % (42-52); MEAN CORPUSCULAR HGB 23.8 PG (27.0-31.0); MEAN CORPUSCULAR HGB CONC 31.6 G/DL (33.0-37.0); MEAN CORPUSCULAR VOLUME 75.3 FL (80.0-94.0); PLATELET COUNT 318 /CUMM (130-400); RBC DISTRIBUTION WIDTH 20.1 % (11.5-14.5); RED BLOOD CELL CT 3.57 /CUMM (4.70-6.10); WHITE BLOOD CELL COUNT 7.6 /CUMM (4.8-10.8)
[2017-06-19 05:53] LABS: PTT 65 SEC (25-37)
[2017-06-19 07:01] VITALS: BP 130/62
--- NOTE | 2017-06-19 07:15 | PN- Housestaff ---
Astrid CORTES,Lupillo 06/19/17 0715: Subjective Follow-up For: DENIS chest pain/unstable angina Tele-Events Since Last Visit: sinus rhythm, no events Subjective: patient complained of some persistent mild left sided chest pain, improved with addition of nitro from yesterday, no new complaints Review of Systems Constitutional: Reports: see HPI. Objective Last 24 Hrs of Vital Signs/I&O Vital Signs Date Time Temp Pulse Resp B/P B/P Pulse O2 O2 Flow FiO2 Mean Ox Delivery Rate 06/19 0701 98.6 61 20 130/62 95 Room Air 06/18 2242 98.0 65 20 124/78 95 06/18 2127 65 124/78 06/18 1443 Room Air 06/18 1438 97.8 68 18 104/66 97 Room Air 06/18 1136 67 140/68 06/18 1135 67 140/68 Intake & Output 06/19 1600 06/19 0800 06/19 0000 Intake Total 452.5 1046.8 Output Total 900 1500 Balance -447.5 -453.2 Intake, IV 192.5 126.8 Intake, Oral 260 920 Output, Urine 900 1500 Patient 98.231 kg Weight Physical Exam General Appearance: Alert, Oriented X3, Cooperative, No Acute Distress Cardiovascular: Regular Rate, Normal S1, Normal S2, No Murmurs Lungs: diminished breath sounds Abdomen: Normal Bowel Sounds, Soft, No Tenderness, No Masses Extremities: No Clubbing, No Cyanosis, No Edema, Normal Pulses, L BKA Current Medications: Current Medications Sig/Jonny Start time Last Medication Dose Route Stop Time Status Admin Acetaminophen 650 MG Q6P PRN 06/17 2145 AC PO Albuterol Sulfate 2 PUF Q6 PRN 06/17 2200 AC INH Aspirin Buffered 81 MG DAILY 06/18 899 AC 06/19 PO 912 Atorvastatin Calcium 40 MG DAILY 06/18 899 AC 06/19 PO 912 Carvedilol 6.25 MG BID 06/18 1005 AC 06/18 PO 2126 Clindamycin 300 MG Q6 06/17 2359 DC 06/18 PO 06/19 230 1136 Clopidogrel Bisulfate 75 MG DAILY 06/18 899 AC 06/19 PO 912 Dipyridamole 55 MG ONE ONE 06/19 1000 DC Dextrose/Water 29 ML IV 06/19 1001 Heparin Sodium 2,900 UNIT ONCE ONE 06/18 1355 DC 06/18 (Porcine) IV 06/18 1356 1446 Heparin Sodium 25,000 UNIT Q24H 06/17 2145 AC 06/18 (Porcine) IV 06/19 2200 1902 Sodium Chloride 500 ML Hydrocodone Bitart/ 1 TAB Q6P PRN 06/17 2145 AC Acetaminophen PO Nitroglycerin 0.4 MG DAILY 06/18 1309 AC 06/19 TOP 0913 Nitroglycerin 0.5 GM Q6H 06/18 0808 DC 06/18 TOP 1013 Omeprazole 40 MG DAILY AC 06/18 0700 AC 06/19 PO 0608 Oxycodone/ 2 TAB Q6P PRN 06/17 2145 AC 06/19 Acetaminophen PO 0913 Sodium Chloride 1,000 ML .Q10H 06/17 2144 DC 06/17 IV 0100 Last 24 Hrs of Lab/Keith Results Last 24 Hrs of Labs/Mics: Laboratory Tests 06/19/17 0500: Anion Gap 8, Estimated GFR 43 L, BUN/Creatinine Ratio 13.1, Magnesium 1.9, APTT 65 H, CBC w Diff NO MAN DIFF REQ, RBC 3.57 L, MCV 75.3 L, MCH 23.8 L, MCHC 31.6 L, RDW 20.1 H, MPV 7.0 L, Gran % 62.5, Lymphocytes % 24.8, Monocytes % 8.7, Eosinophils % 3.6, Basophils % 0.4, Absolute Granulocytes 4.8, Absolute Lymphocytes 1.9, Absolute Monocytes 0.7 H, Absolute Eosinophils 0.3, Absolute Basophils 0 06/18/17 2045: APTT 95 H 06/18/17 1135: APTT 54 H Assessment/Plan Assessment: 67 year old male with PMH significant for CAD s/p RCA stent (11/2016), HTN, HLD, COPD, and left BKA had an incision and drainage of left facial abscess, culture was positive for MRSA, he was treated with vancomycin while in the hospital and was DC on on 06/09/17 on Bactrim presented with left sided chest pain. Unstable angina: Contine aspirin, plavix, statin, beta manohar and heparin gtt x 48 hours CBC dropped on heparin gtt, likely dilutional, guiaic bowel movement Troponins and EKGs negative for ischemia Cardiology consulted, follow up recommendations Patient still complaining of chest pain today, start nitropaste 0.5 transdermal q6h Patient was tachycardic on arrival with hypotension, vitals normal now Continue to monitor on telemetry, no events Echocardiogram LVEF normal, stage I diastolic dysfunction 2015 NPO for pharmacological stress test today DENIS: Hold Lasix, lisinopril, Bactrim and any other nephrotoxic agents Creatinine 1.2 on previous discharge, 2.4 on admission improved to 1.6 with IVFs Avoid nephrotoxins Trend renal function Leukocytosis: Likely secondary to dehydration, resolved with hydration Antibiotics for left facial abscess discontinued Hypertension: Continue coreg and nitro ACEi held for DENIS Currently normotensive Norvasc held Hyperlipidemia: Continue statin therapy COPD CT chest showed multiple new nodules, some suspicious for malignancy Compared to 11/11/2016, multiple new nodules are present in the right lung, highly suggestive of infectious bronchiolitis and bronchopneumonia. No associated pleural effusion or hilar lymphadenopathy. There are old nodular foci in both lungs, as well, include a lesion of mixed attenuation in the posterior right lung apex. Whereas the groundglass component of this lesion has not appreciably changed, the irregular solid component continues to increase in size, which is suspicious for carcinoma. Pulmonology consulted, appreciate recommendations, will need outpatient follow up Heart healthy diet DVT ppx-heparin 5000 units subcutaneous q8h Full code Problem List: 1. Unstable angina 2. Acute renal failure Pain Ratin Pain Location: left chest Pain Goal: Pain 4 or less Pain Plan: nitro/morphine Tomorrow's Labs & Rationales: giovanna Bar MD,Heather 06/19/17 1107: Attending MD Review Statement Attending Statement Attending MD Statement: examined this patient, discuss w/resident/PA/VARITYPE OPERATOR, agreed w/resident/PA/VARITYPE OPERATOR, reviewed EMR data (avail) Attending Assessment/Plan: 67M PMH HTN, HLD, COPD, right hip replacement, left BKA, CAD S/P stent in November 2016, found to have left facial abscess and cellulitis s/p I&D in ED on 06/03 with wound cultures growing mRSA, recently admitted for DENIS and dehydration , discharged home on Bactrim, returns now with persistent left sided chest pain at rest, with dehydration and DENIS. Chest pain is improved but continues. Creatinine improving. 1. Unstable angina 2. DENIS 3. Hypotension Plan - Continue on telemetry - Going for pharmalogical stress test today - Continue Clindamycin - Continue heparin drip, ASA, Plavix, statin, nitropaste - Cardiology and pulmonary consults - Monitor renal function - Outpatient PET for pulmonary nodules on discharge - Continue home medications - DVT PPx
--- NOTE | 2017-06-19 13:38 | ECHOCARDIOGRAM REPORT ---
MIMI PARK Age: 67 : 1950 Gender: M Exam Date: 06/18/2017 19:50 Exam Location: [facility] Ht (in): 72 Wt (lb): 216 BSA: 2.25 BP: 120 / 62 Ordering Physician: Rachid Agarwal MD Referring Physician: Zhang Blancas MD, PhD Technologist: Shelby Seals [facility] Room Number: 184 Indications: CHEST PAIN Rhythm: Sinus Technical Quality: good FINDINGS Left Ventricle Normal left ventricular size with mild left ventricular hypertrophy. Normal systolic function with no obvious regional wall motion abnormalities. Normal left ventricular diastolic filling pattern for age. The ejection fraction is visually estimated at 60%. Right Ventricle The right ventricle is normal in size and function. Right Atrium The right atrium is normal in size. Left Atrium The left atrium is mildly enlarged. The interatrial septum is intact. Mitral Valve The mitral valve is normal in structure and function. There is trace mitral regurgitation. Aortic Valve Mildly thickened and scleroticl aortic valve without significant stenosis. There is mild aortic regurgitation. Tricuspid Valve The tricuspid valve is normal in structure and function. There is no tricuspid regurgitation. Pulmonic Valve Structurally normal pulmonic valve. There is no pulmonic regurgitation. Pericardium Normal pericardium without effusion. No pleural effusion. Great Vessels Normal aortic root dimension. The aortic arch and great vessels are well seen and are normal. CONCLUSIONS 1. Normal EF of 60%. 2. Mild left ventricular hypertrophy. 3. Mild left atrial enlargement. 4. Trace mitral regurgitation. 5. Mild aortic insufficiency. Zhang Blancas M.D. (Electronically Signed) Final Date: 19 Jun 2017 13:37 MEASUREMENTS (Male / Female) Normal Values 2D ECHO LV Diastolic Diameter PLAX 4.1 cm 4.2 - 5.9 / 3.9 - 5.3 cm LV Systolic Diameter PLAX 2.3 cm 2.1 - 4.0 cm LV Fractional Shortening PLAX 45.5 % 25 - 46 % LV Ejection Fraction 2D Teich 77.3 % IVS Diastolic Thickness 1.4 cm LVPW Diastolic Thickness 1.4 cm LV Relative Wall Thickness 0.7 RV Internal Dim ED PLAX 3.3 cm 1.9 - 3.8 cm LVOT Diameter 2.3 cm Aortic Root Diameter 2.8 cm LA Systolic Diameter LX 4.1 cm 3.0 - 4.0 / 2.7 - 3.8 cm LA Volume 23.0 cm 18 - 58 / 22 - 52 cm DOPPLER AV Peak Velocity 245.0 cm/s AV Peak Gradient 24.0 mmHg AV Mean Velocity 179.0 cm/s AV Mean Gradient 14.0 mmHg AV Velocity Time Integral 48.3 cm LVOT Peak Velocity 158.0 cm/s LVOT Peak Gradient 10.0 mmHg LVOT Mean Velocity 103.0 cm/s LVOT Mean Gradient 5.0 mmHg LVOT Velocity Time Integral 30.5 cm LVOT Stroke Volume 126.7 cm AV Area Cont Eq vti 2.6 cm AV Area Cont Eq pk 2.7 cm MV Peak Velocity 99.2 cm/s MV Peak Gradient 3.9 mmHg MV Mean Velocity 61.2 cm/s MV Mean Gradient 2.0 mmHg Mitral E Point Velocity 94.3 cm/s Mitral A Point Velocity 90.8 cm/s Mitral E to A Ratio 1.0 MV Deceleration [place] 249.0 cm/s MV Deceleration Time 254.0 ms PV Peak Velocity 93.7 cm/s PV Peak Gradient 3.5 mmHg PV Mean Velocity 62.3 cm/s PV Mean Gradient 2.0 mmHg PV Velocity Time Integral 15.9 cm LV E' Lateral Velocity 9.0 cm/s Mitral E to LV E' Lateral Ratio 10.5 LV E' Septal Velocity 7.4 cm/s Mitral E to LV E' Septal Ratio 12.7
--- NOTE | 2017-06-19 13:48 | PN- Pulmonary ---
Subjective HPI/Critical Care Issues: Improved today Sleeping Ongoing discomfort of the chest on heparin Objective Current Medications: Current Medications Sig/Jonny Start time Last Medication Dose Route Stop Time Status Admin Acetaminophen 650 MG Q6P PRN 06/17 2145 AC PO Albuterol Sulfate 2 PUF Q6 PRN 06/17 2200 AC INH Aspirin Buffered 81 MG DAILY 06/18 899 AC 06/19 PO 0913 Atorvastatin Calcium 40 MG DAILY 06/18 899 AC 06/19 PO 0913 Carvedilol 6.25 MG BID 06/18 1005 AC 06/18 PO 2127 Clindamycin 300 MG Q6 06/17 2359 DC 06/18 PO 06/19 2300 1136 Clopidogrel Bisulfate 75 MG DAILY 06/18 899 AC 06/19 PO 09 Dipyridamole 55 MG ONE ONE 06/19 1000 DC Dextrose/Water 29 ML IV 06/19 1001 Heparin Sodium 2,900 UNIT ONCE ONE 06/18 1355 DC 06/18 (Porcine) IV 06/18 1356 1446 Heparin Sodium 25,000 UNIT Q24H 06/17 2144 AC 06/18 (Porcine) IV 06/19 2200 1902 Sodium Chloride 500 ML Hydrocodone Bitart/ 1 TAB Q6P PRN 06/17 214 Acetaminophen PO Nicotine 21 MG DAILY 06/19 1126 TOP Nitroglycerin 0.4 MG DAILY 06/18 1309 AC 06/19 TOP 0913 Omeprazole 40 MG DAILY AC 06/18 0700 AC 06/19 PO 0608 Oxycodone/ 2 TAB Q6P PRN 06/17 214 AC 06/19 Acetaminophen PO 0913 Vital Signs & I&O Last 24 Hrs of Vitals and I&O: Vital Signs Date Time Temp Pulse Resp B/P B/P Pulse O2 O2 Flow FiO2 Mean Ox Delivery Rate 06/19 0701 98.6 61 20 130/62 95 Room Air 06/18 2242 98.0 65 20 124/78 95 06/18 2127 65 124/78 06/18 1443 Room Air 06/18 1438 97.8 68 18 104/66 97 Room Air Intake & Output 06/19 1600 06/19 0800 05 0000 Intake Total 452.5 1046.8 Output Total 900 1500 Balance -447.5 -453.2 Intake, IV 192.5 126.8 Intake, Oral 260 920 Output, Urine 900 1500 Patient 217 lb Weight Laboratory Tests 06/19 06/18 06/18 0500 2045 1135 Chemistry Sodium (137 - 145 mmol/L) 137 Potassium (3.5 - 5.1 mmol/L) 4.6 Chloride (98 - 107 mmol/L) 105 Carbon Dioxide (22 - 30 mmol/L) 24 Anion Gap (5 - 16) 8 BUN (9 - 20 mg/dL) 21 H Creatinine (0.7 - 1.2 mg/dL) 1.6 H Estimated GFR (>60 ml/min) 43 L BUN/Creatinine Ratio (7 - 25 %) 13.1 Magnesium (1.6 - 2.3 mg/dL) 1.9 Coagulation APTT (25 - 37 SEC) 65 H 95 H 54 H Hematology CBC w Diff NO MAN DIFF REQ WBC (4.8 - 10.8 /CUMM) 7.6 RBC (4.70 - 6.10 /CUMM) 3.57 L Hgb (14.0 - 18.0 G/DL) 8.5 L Hct (42 - 52 %) 26.9 L MCV (80.0 - 94.0 FL) 75.3 L MCH (27.0 - 31.0 PG) 23.8 L MCHC (33.0 - 37.0 G/DL) 31.6 L RDW (11.5 - 14.5 %) 20.1 H Plt Count (130 - 400 /CUMM) 318 MPV (7.4 - 10.4 FL) 7.0 L Gran % (42.2 - 75.2 %) 62.5 Lymphocytes % (20.5 - 51.1 %) 24.8 Monocytes % (1.7 - 9.3 %) 8.7 Eosinophils % (0 - 5 %) 3.6 Basophils % (0.0 - 2.0 %) 0.4 Absolute Granulocytes (1.4 - 6.5 /CUMM) 4.8 Absolute Lymphocytes (1.2 - 3.4 /CUMM) 1.9 Absolute Monocytes (0.10 - 0.60 /CUMM) 0.7 H Absolute Eosinophils (0.0 - 0.7 /CUMM) 0.3 Absolute Basophils (0.0 - 0.2 /CUMM) 0 06/18 0400 Chemistry Sodium (137 - 145 mmol/L) 136 L Potassium (3.5 - 5.1 mmol/L) 4.7 Chloride (98 - 107 mmol/L) 104 Carbon Dioxide (22 - 30 mmol/L) 23 Anion Gap (5 - 16) 9 BUN (9 - 20 mg/dL) 26 H Creatinine (0.7 - 1.2 mg/dL) 2.1 H Estimated GFR (>60 ml/min) 32 L BUN/Creatinine Ratio (7 - 25 %) 12.4 Troponin I (<0.11 ng/ml) < 0.01 Coagulation APTT (25 - 37 SEC) 43 H Hematology CBC w Diff NO MAN DIFF REQ WBC (4.8 - 10.8 /CUMM) 10.0 RBC (4.70 - 6.10 /CUMM) 3.79 L Hgb (14.0 - 18.0 G/DL) 8.9 L Hct (42 - 52 %) 28.6 L MCV (80.0 - 94.0 FL) 75.4 L MCH (27.0 - 31.0 PG) 23.5 L MCHC (33.0 - 37.0 G/DL) 31.2 L RDW (11.5 - 14.5 %) 19.8 H Plt Count (130 - 400 /CUMM) 312 MPV (7.4 - 10.4 FL) 6.8 L Gran % (42.2 - 75.2 %) 65.0 Lymphocytes % (20.5 - 51.1 %) 22.1 Monocytes % (1.7 - 9.3 %) 8.6 Eosinophils % (0 - 5 %) 4.0 Basophils % (0.0 - 2.0 %) 0.3 Absolute Granulocytes (1.4 - 6.5 /CUMM) 6.5 Absolute Lymphocytes (1.2 - 3.4 /CUMM) 2.2 Absolute Monocytes (0.10 - 0.60 /CUMM) 0.9 H Absolute Eosinophils (0.0 - 0.7 /CUMM) 0.4 Absolute Basophils (0.0 - 0.2 /CUMM) 0 06/18 06/17 06/17 0330 2300 2105 Chemistry Lactic Acid (0.7 - 2.1 mmol/L) 1.3 Troponin I (<0.11 ng/ml) < 0.01 Urines Urinalysis LIGHT H Urine Color (YEL,AMB,STR) YEL Urine Clarity (CLEAR) CLEAR Urine pH (5.0 - 8.0) 6.0 Ur Specific Ruth (1.001 - 1.035) <= 1.005 Urine Protein (NEG,<30 MG/DL) NEG Urine Ketones (NEG) NEG Urine Nitrite (NEG) NEG Urine Bilirubin (NEG) NEG Urine Urobilinogen (0.1 - 1.0 EU/dl) 0.2 Ur Leukocyte Esterase (NEG) SMALL H Ur Microscopic SEDIMENT EXAMINED Urine WBC (0 - 2 /HPF) 10-15 H Ur Epithelial Cells (NONE,FEW) MANY H Urine Bacteria (NEG/NONE) RARE H Micro UA Comment TRICHOMONAS SEEN H Urine Hemoglobin (NEG) NEG Urine Glucose (N MG/DL) NEG 06/17 1802 Chemistry Sodium (137 - 145 mmol/L) 137 Potassium (3.5 - 5.1 mmol/L) 4.6 Chloride (98 - 107 mmol/L) 100 Carbon Dioxide (22 - 30 mmol/L) 24 Anion Gap (5 - 16) 13 BUN (9 - 20 mg/dL) 25 H Creatinine (0.7 - 1.2 mg/dL) 2.2 H Estimated GFR (>60 ml/min) 30 L BUN/Creatinine Ratio (7 - 25 %) 11.4 Glucose (65 - 99 mg/dL) 120 H Lactic Acid (0.7 - 2.1 mmol/L) 1.4 Calcium (8.4 - 10.2 mg/dL) 9.0 Magnesium (1.6 - 2.3 mg/dL) 1.9 Total Bilirubin (0.2 - 1.3 mg/dL) 0.4 AST (17 - 59 U/L) 10 L ALT (21 - 72 U/L) 20 L Alkaline Phosphatase (< 127 U/L) 109 Troponin I (<0.11 ng/ml) < 0.01 [id number]-[id number]-Lgrqbldnoqe Pept (<125 pg/mL) 36.7 Total Protein (6.3 - 8.2 g/dL) 6.7 Albumin (3.5 - 5.0 g/dL) 4.1 Globulin (1.9 - 4.2 gm/dL) 2.6 Albumin/Globulin Ratio (1.1 - 2.2 %) 1.6 TSH &T3 &Free T4 Intrp (0.27 - 4.20 uIU/mL) 0.805 Coagulation PT (9.4 - 12.5 SEC) 11.3 INR (0.90 - 1.17) 1.04 APTT (25 - 37 SEC) 26 D-Dimer High Sensitivty (0 - 243 ng/ml) 434 H Hematology CBC w Diff NO MAN DIFF REQ WBC (4.8 - 10.8 /CUMM) 14.0 H RBC (4.70 - 6.10 /CUMM) 4.57 L Hgb (14.0 - 18.0 G/DL) 11.0 L Hct (42 - 52 %) 34.5 L MCV (80.0 - 94.0 FL) 75.5 L MCH (27.0 - 31.0 PG) 24.1 L MCHC (33.0 - 37.0 G/DL) 31.9 L RDW (11.5 - 14.5 %) 20.2 H Plt Count (130 - 400 /CUMM) 412 H MPV (7.4 - 10.4 FL) 6.8 L Gran % (42.2 - 75.2 %) 73.3 Lymphocytes % (20.5 - 51.1 %) 15.0 L Monocytes % (1.7 - 9.3 %) 7.4 Eosinophils % (0 - 5 %) 3.1 Basophils % (0.0 - 2.0 %) 1.2 Absolute Granulocytes (1.4 - 6.5 /CUMM) 10.3 H Absolute Lymphocytes (1.2 - 3.4 /CUMM) 2.1 Absolute Monocytes (0.10 - 0.60 /CUMM) 1.0 H Absolute Eosinophils (0.0 - 0.7 /CUMM) 0.4 Absolute Basophils (0.0 - 0.2 /CUMM) 0.2 Microbiology Date/Time Procedure - Status Source Growth 06/18 329 Legionella Antigen - COMP URINE ROUT 06/18 329 Streptococcus pneumoniae Antigen (M - COMP URINE ROUT 06/18 329 Urine Culture - RES URINE ROUT 06/17 2299 Blood Culture - RES BLOOD 06/18 2239 Blood Culture - RES BLOOD 06/17 2208 Respiratory Culture - CAN LOWER RESP Cancelled: SPECIMEN NOT RECEIVED IN LABORATORY 06/17 2208 Gram Stain - CAN LOWER RESP Cancelled: SPECIMEN NOT RECEIVED IN LABORATORY Impression/Plan Impression/Plan Impression/Plan: General Appearance Alert, Oriented X3, Cooperative, No Acute Distress Skin No Rashes, No Breakdown, No Significant Lesion HEENT Atraumatic, PERRLA, EOMI, Mucous Membr. moist/pink Neck Supple, No JVD Cardiovascular Normal S1, Normal S2, No Murmurs Lungs Clear to Auscultation Abdomen Normal Bowel Sounds, Soft, No Tenderness Neurological Normal Speech, Normal Tone, Sensation Intact, Cranial Nerves 3-12 NL, Reflexes 2+ Extremities No Clubbing, No Cyanosis, 1 + pitting edema in LLE Vascular Normal Pulses Chest CT: UNGS AND PLEURA: Trachea and mainstem bronchi are widely patent and normal in caliber. Mild, chronic thickening of bronchial venegas in both lungs. There is a nodule of mixed attenuation in the posterior right lung apex (image 114, series 4); the groundglass component, which measures approximately 1.1 cm, remains unchanged. The irregular, solid component, which measures approximately 0.6 x 0.9 cm, has slightly increased in size compared to 11/11/2016 and is definitely larger compared to 07/17/2015. There are old micronodular opacities and groundglass opacities in upper lobes that remain unchanged compared to 11/11/2016. There are new nodules in the right lung, as well. For example, a new, irregular nodular focus measuring approximately 0.4 x 0.8 cm present in the anterior right upper lobe (image 216, series 4). Multiple new clustered micronodules are present in the anterior segment of the right upper lobe near the level of the minor fissure. The largest new, irregular nodule in the lateral segment of the right lower lobe abuts the adjacent major fissure and is difficult to precisely measure given its irregular border and its juxtaposition to adjacent vessels and bronchi; it measures approximately 1.3 cm, and there are multiple other new nodules in the right lower lobe peripheral to this lesion. Chronic subsegmental atelectasis/scarring in the lingula adjacent to the major fissure. No pleural effusion or pneumothorax. MEDIASTINUM: Three-vessel coronary artery atherosclerotic calcification. Mild atherosclerosis of the thoracic aorta without aneurysm. Moderate-sized hiatal hernia. Thyroid gland is unremarkable. LYMPHATICS: No lymphadenopathy. UPPER ABDOMEN: Cholelithiasis. Again noted is mild fullness of the adrenal glands. No acute findings in the examined upper abdomen compared to 11/11/2016. SKELETAL AND CHEST WALL: No acute findings in the degenerated thoracic spine. No aggressive osseous lesions. 1. Compared to 11/11/2016, multiple new nodules are present in the right lung, highly suggestive of infectious bronchiolitis and bronchopneumonia. No associated pleural effusion or hilar lymphadenopathy. 2. There are old nodular foci in both lungs, as well, include a lesion of mixed attenuation in the posterior right lung apex. Whereas the groundglass component of this lesion has not appreciably changed, the irregular solid component continues to increase in size, which is suspicious for carcinoma. 3. Cholelithiasis. IMPRESSION This is a gentleman with history of hypertension, dyslipidemia, significant smoking history, family history of premature coronary artery disease, previous PCI of the right coronary artery with preserved ejection fraction, recent cellulitis of the face due to staph aureus which was methicillin-resistant status post antibiotic treatment, recent acute kidney injury which is improving, came into the hospital with palpitations and chest discomfort suggestive of myocardial ischemia now being followed by cardiology and patient does have chronic kidney disease and now being conservatively managed. Patient was on Bactrim recently. He did have a CT scan of the chest without contrast which showed multiple abnormalities hence this consult. His issues include Multiple lung nodules which are slowly increasing in size the largest one which is increasing in size is 0.9 cm which would require a PET scan as an outpatient. Patient is high risk for malignancy as he has had more than [id number]-jivg smoking history and he continues to unfortunately smoke no clinical evidence suggestive of significant COPD but however he needs to have a full pulmonary function tests as a suspect he does have mild to moderate COPD * Chronic kidney disease with acute renal insufficiency now which is slowly improving. * Recent left facial cellulitis which has resolved * Chronic anemia workup patient is now on anticoagulation * Significant chronic hoarseness of voice, needs outpatient evaluation by ENT * Acute coronary syndrome followed by cardiology * Elevated d-dimer unlikely pulmonary embolism but this may need to be ruled out if stress test in neg for coronary ischemia * Chronic pain syndrome and multiple other issues as noted above RECOMMENDATION Stress test and if no sig reversible ischemia needs a vq (persistant chest pain and positive trop) Needs outpatient PET scan patient is aware of appropriate follow-up Watch his renal function Anticoagulation per cardiology Needs ear nose and throat evaluation as an outpatient Watch for fever etc. Ok to watch off abx at this time Smoking cessation counseling done
[2017-06-19 15:12] VITALS: BP 150/70
--- NOTE | 2017-06-19 15:17 | NUCLEAR MEDICINE REPORT ---
PERSANTINE STRESS AND RESTING SPECT MYOCARDIAL PERFUSION IMAGING STUDY WITH GATED SPECT IMAGES: CLINICAL INDICATION: Unstable angina. PROCEDURE: Regional myocardial perfusion was assessed using a 1 day protocol. Stress images were obtained on 06/19/2017 following the intravenous administration of 25.2 mCi Tc 99m Myoview. Stress consisted of 55 mg Persantine given intravenously. Following the sestamibi injection, no aminophylline was given intravenously. Rest images were obtained 06/19/2017 following the intravenous administration of 42.4 mCi Technetium 99m Myoview. Single photon emission tomographic (SPECT) images were obtained. SPECT images were acquired in a 64 x 64 matrix of 64 projections over 180 degrees. These were reconstructed into standard short axis, horizontal and vertical long axis cardiac projections. FINDINGS: The post stress images demonstrate the left ventricular chamber to be normal in size. There is homogeneous distribution of activity in the left ventricular myocardium with no regions of abnormally decreased activity noted. The resting images also demonstrate homogeneous distribution of activity in the left ventricular myocardium, and are not significantly changed from the post stress images. The images were obtained using a gated SPECT technique, which permits visualization of wall motion and calculation of the left ventricular ejection fraction. No left ventricular wall motion abnormalities are noted on either the stress or resting study. The calculated left ventricular ejection fraction is 50% on the stress study. Compared to the previous study dated 10/17/2015 there has not been a significant change. The gated images from the previous study are not available for review and the wall motion cannot be compared. Ejection fraction is not significantly changed from the previous study when it was 55%. 10/17/2015, IMPRESSION: Normal Persantine stress and resting myocardial perfusion study with normal left ventricular wall motion and ejection fraction.
--- NOTE | 2017-06-19 19:25 | PN- Cardiology ---
Subjective Subjective: * Patient continues to report a mild but persistent chest discomfort. * creatinine improved to 1.6 Objective Vital Signs and I&Os Vital Signs Date Time Temp Pulse Resp B/P B/P Pulse O2 O2 Flow FiO2 Mean Ox Delivery Rate 06/19 1537 150/70 06/19 1512 98.7 75 20 150/70 97 Room Air 06/19 0701 98.6 61 20 130/62 95 Room Air 06/18 2242 98.0 65 20 124/78 95 06/18 2127 65 124/78 Intake & Output 06/19 1600 06/19 0800 06/19 0000 06/18 1600 06/18 0800 06/18 0000 Intake Total 452.5 1046.8 1311.90 1080 Output Total 865 798 0748 950 1000 Balance -675 -447.5 -453.2 361.90 80 Intake, IV 192.5 126.8 711.90 960 Intake, Oral 260 920 600 120 Output, Urine 158 885 4153 950 1000 Patient 217 lb 216 lb 230 lb Weight Weight Bed scale Reported by Patient Measurement Method Physical Exam: General: WD/WN male in NAD; alert and oriented x 3 HEENT: NC/AT, PERRL, EOMI Neck: no JVD, no carotid bruit Heart: RRR with 3/6 systolic murmur Lungs: clear bilaterally Abdomen: soft, NT, +ve bowel sounds Extremities: no edema, Left BKA Assessment/Plan Assessment/Plan * This patient has symptoms that are suggestive of myocardial ischemia although with some atypical features. Despite almost unremitting chest pain he does not demonstrate any rise in cardiac enzymes or electrocardiographic changes. In addition, his pain tends to be pleuritic and exacerbated by deep inhalation. His stress test is negative for ischemia. I do not think this patient has myocardial ischemia and alternate causes of chest pain should be investigated. We will pursue medical therapy for now including a NTG patch at 0.4mg/hr, aspirin and Plavix. Continue Carvedilol and a statin. * This patient had an acute rise in creatinine but it is improving. Avoid NSAIDs and hold Lisinopril. If Lisinopril is restarted it will need to be given at a lower dose. Continue to hold Lasix. Continue telemetry? No
[2017-06-19 20:12] LABS: PTT 57 SEC (25-37)
[2017-06-19 22:33] VITALS: BP 118/60
[2017-06-20 06:55] VITALS: BP 124/66
--- NOTE | 2017-06-20 08:00 | PN- Housestaff ---
See Addendum Subjective Follow-up For: chest pain DENIS Tele-Events Since Last Visit: sinus rhythm, no events Subjective: patient's chest pain is improved no overnight events or new complaints Review of Systems Constitutional: Reports: see HPI. Objective Last 24 Hrs of Vital Signs/I&O Vital Signs Date Time Temp Pulse Resp B/P B/P Pulse O2 O2 Flow FiO2 Mean Ox Delivery Rate 06/20 0555 98.7 71 20 124/66 95 Room Air 06/19 2233 98.1 70 20 118/60 96 Room Air 06/19 2128 74 06/19 1537 150/70 06/19 1512 98.7 75 20 150/70 97 Room Air Intake & Output 06/20 1600 06/20 0800 06/20 0000 Intake Total 1070 Output Total 325 650 Balance 745 -650 Intake, IV 670 Intake, Oral 400 Output, Urine 325 650 Patient 98.089 kg Weight Weight Bed scale Measurement Method Physical Exam General Appearance: Alert, Oriented X3, Cooperative, No Acute Distress Cardiovascular: Regular Rate, Normal S1, Normal S2, No Murmurs Lungs: Clear to Auscultation, Normal Air Movement Abdomen: Normal Bowel Sounds, Soft, No Tenderness, No Masses Extremities: No Clubbing, No Cyanosis, No Edema, Normal Pulses, L BKA Current Medications: Current Medications Sig/Jonny Start time Last Medication Dose Route Stop Time Status Admin Acetaminophen 650 MG Q6P PRN 06/17 2144 AC PO Albuterol Sulfate 2 PUF Q6 PRN 06/17 2199 AC INH Aspirin Buffered 81 MG DAILY 06/18 899 AC 06/19 PO 912 Atorvastatin Calcium 40 MG DAILY 06/18 899 AC 06/19 PO 912 Carvedilol 6.25 MG BID 06/18 1005 AC 06/19 PO 212 Clopidogrel Bisulfate 75 MG DAILY 06/18 899 AC 06/19 PO 09 Dipyridamole 55 MG ONE ONE 06/19 1000 DC 06/19 Dextrose/Water 29 ML IV 06/19 1001 1000 Heparin Sodium 5,000 UNIT Q8 06/20 06 AC (Porcine) SC Heparin Sodium 25,000 UNIT Q24H 06/17 2144 DC 06/18 (Porcine) IV 06/19 2199 1902 Sodium Chloride 500 ML Hydrocodone Bitart/ 1 TAB Q6P PRN 05/08 2145 AC Acetaminophen PO Nicotine 21 MG DAILY 06/19 1126 06/19 TOP 1537 Nitroglycerin 0.4 MG DAILY 06/18 1309 06/19 TOP 0913 Omeprazole 40 MG DAILY AC 06/18 0700 AC 06/20 PO 0710 Oxycodone/ 2 TAB Q6P PRN 06/17 2145 AC 06/20 Acetaminophen PO 0446 Sodium Chloride 1,000 ML Q10H 06/19 1515 DC 06/19 IV 06/20 0114 1607 Last 24 Hrs of Lab/Keith Results Last 24 Hrs of Labs/Mics: Laboratory Tests 06/20/17 0632: Anion Gap 9, Estimated GFR 47 L, BUN/Creatinine Ratio 15.3 06/19/17 1923: APTT 57 H 06/19/17 1800: APTT Cancelled Assessment/Plan Assessment: 67 year old male with PMH significant for CAD s/p RCA stent (11/2016), HTN, HLD, COPD, and left BKA had an incision and drainage of left facial abscess, culture was positive for MRSA, he was treated with vancomycin while in the hospital and was DC on on 06/09/17 on Bactrim presented with left sided chest pain. Unstable angina: Contine aspirin, plavix, statin, beta manohar Heparin gtt discontinued Troponins and EKGs negative for ischemia Cardiology consulted, follow up recommendations Echocardiogram LVEF normal, mild LVH, mild AI, mild LA enlargement Pharmacological stress test was negative for any ischemia DENIS: Hold Lasix, lisinopril and any other nephrotoxic agents Creatinine 1.2 on previous discharge, 2.4 on admission improved to 1.5 with IVFs Avoid nephrotoxins Trend renal function Leukocytosis: Likely secondary to dehydration, resolved with hydration Antibiotics for left facial abscess discontinued Hypertension: Continue coreg and nitro ACEi held for DENIS Currently normotensive Norvasc held Hyperlipidemia: Continue statin therapy COPD CT chest showed multiple new nodules, some suspicious for malignancy Compared to 11/11/2016, multiple new nodules are present in the right lung, highly suggestive of infectious bronchiolitis and bronchopneumonia. No associated pleural effusion or hilar lymphadenopathy. There are old nodular foci in both lungs, as well, include a lesion of mixed attenuation in the posterior right lung apex. Whereas the groundglass component of this lesion has not appreciably changed, the irregular solid component continues to increase in size, which is suspicious for carcinoma. Pulmonology consulted, appreciate recommendations, will need outpatient follow up Heart healthy diet DVT ppx-heparin 5000 units subcutaneous q8h Full code Stable for discharge, check renal function on Friday06/23/17 Problem List: 1. Unstable angina 2. Hypotension 3. Acute renal failure Pain Ratin Pain Location: n/a Pain Goal: Pain 4 or less Pain Plan: prn Tomorrow's Labs & Rationales: none, discharge
[2017-06-20] MEDS ORDERED: NITRO-DUR1 EAC3 TD ×2 (08:30→10:01)
--- NOTE | 2017-06-20 08:32 | Patient Discharge Instructions ---
Discharge Instructions General Discharge Information You were seen/treated for: acute kidney injury chest pain Special Instructions: You had no evidence of ischemia on your cardiac stress test. You can follow up with Dr. Blancas in the office. You will need to follow up with Dr. Alonzo for pulmonary nodules, pulmonary function tests, and a PET scan. You should also follow up with Dr. Ramirez (ears/nose/throat) for chronic hoarse voice and stop smoking. Acute Coronary Syndrome Inclusion Criteria At DC or during hospital stay patient has or had the following: ACS DIAGNOSIS No Discharge Core Measures Meds if any: Prescribed or Continued at Discharge Meds if any: NOT Prescribed or Continued at Discharge Congestive Heart Failure Inclusion Criteria At DC or during hospital stay patient has or had the following: CHF DIAGNOSIS No Discharge Core Measures Meds if any: Prescribed or Continued at Discharge Meds if any: NOT Prescribed or Continued at Discharge Cerebrovascular accident Inclusion Criteria At DC or during hospital stay patient has or had the following: CVA/TIA Diagnosis No Discharge Core Measures Meds if any: Prescribed or Continued at Discharge Meds if any: NOT Prescribed or Continued at Discharge Venous thromboembolism Inclusion Criteria VTE Diagnosis No VTE Type NONE VTE Confirmed by (Test) NONE Discharge Core Measures - Per Current guidelines, there needs to be overlap - treatment for the first 5 days of Warfarin therapy. - If discharged on Warfarin prior to 5 days of - overlap therapy, the patient will need to be - assessed for post discharge needs including - *Post discharge parental anticoagulation - *Warfarin and/or parental anticoagulation education - *Follow up date to check INR post discharge At least 5 days overlap therapy as Inpatient No Meds if any: Prescribed or Continued at Discharge Note: Overlap Therapy is Warfarin and Anticoagulant Meds if any: NOT Prescribed or Continued at Discharge
--- NOTE | 2017-06-20 08:52 | IV DIPYRIDAMOLE NUCLEAR STRESS ---
Clinical Diagnosis: Unstable Angina Tube Man: Marcel Jean IV DIPYRIDAMOLE INFUSED: 55 mg IV AMINOPHYLLINE INFUSED: 0 mg PATIENT WEIGHT: 216 lbs INTERPRETATION: The patient's baseline EKG showed normal sinus rhythm at 65 BPM. Baseline B/P 113/68. The patient received 55 mg of dipyridamole infused intravenously over a 4 minute period. TC99M Myoview was injected after dipyridamole infusion. The patient tolerated the infusion well. There were no EKG changes seen following pharmacologic infusion. Arrhythmias: None IMPRESSION: The test was supervised by the interpreting Tube Drawer, who was in attendance during the entire test. No EKG evidence of stress induced myocardial ischemia. See separately dictated Nuclear Report.
[2017-06-20 08:58] VITALS: BP 136/84
--- NOTE | 2017-06-20 08:59 | Discharge Summary ---
Visit Information Visit Dates Admission Date: 06/17/17 Discharge Date: 06/20/17 Hospital Course Course Attending Physician: Joelle Bar MD Primary Care Physician: Salas CORTES,Salas Hospital Course: 67 year old male with PMH significant for CAD s/p RCA stent (11/2016), HTN, HLD , COPD, and left BKA had a recent admission incision and drainage of left facial abscess, culture positive for MRSA, treated with vancomycin while in the hospital and was discharged on a total two week course with Bactrim presented with left sided chest pain. The patient was admitted to telemetry for unstable angina. His home medications of aspirin, plavix, statin, and beta manohar were continued. The patient was started on an intravenous heparin infusion and cardiology was consulted. Serial troponins and EKGs were negative for myocardial infarction. An echocardiogram was performed and showed LVEF normal, mild LVH, mild AI, mild LA enlargement. Given his history of coronary artery disease and recent stent placement, there was concern for stent thrombosis. A pharmacological stress test was performed and was negative for any reversible ischemia. The patient also had acute kidney injury. Creatinine on prior discharge was 1.2 and was 2.4 on presentation. Lasix and lisinopril were held on the patient was given crystalloid intravenous hydration with creatinine subsequently improving to 1.5 on the day of discharge. These medications continued to be held at discharge and lisinopril will likely need to be restarted as an outpatient. He completed his course of antibiotics which were discontinued and his left facial abscess was essentially resolved. The patient was instructed to follow up with your Dr. Marina and Dr. Blancas as an outpatient. Lisinopril was stopped pending repeat renal function tests on 06/23/17. This medication will likely need to be restarted at a lower dose. He should follow up with Dr. Alonzo for pulmonary nodules discovered on CT scan of the chest. He should be further evaluated with a PET scan, and pulmonary function tests. He was also instructed to follow up with Dr. Ramirez (ears/nose/throat) for chronic hoarse voice and stop smoking. Allergies: Coded Allergies: No Known Allergies (06/05/17) Significant Procedures: Echocardiogram 06/19/17 CONCLUSIONS 1. Normal EF of 60%. 2. Mild left ventricular hypertrophy. 3. Mild left atrial enlargement. 4. Trace mitral regurgitation. 5. Mild aortic insufficiency. Nuclear stress test 06/19/17 FINDINGS: The post stress images demonstrate the left ventricular chamber to be normal in size. There is homogeneous distribution of activity in the left ventricular myocardium with no regions of abnormally decreased activity noted. The resting images also demonstrate homogeneous distribution of activity in the left ventricular myocardium, and are not significantly changed from the post stress images. The images were obtained using a gated SPECT technique, which permits visualization of wall motion and calculation of the left ventricular ejection fraction. No left ventricular wall motion abnormalities are noted on either the stress or resting study. The calculated left ventricular ejection fraction is 50% on the stress study. Compared to the previous study dated 10/17/2015 there has not been a significant change. The gated images from the previous study are not available for review and the wall motion cannot be compared. Ejection fraction is not significantly changed from the previous study when it was 55%. 10/17/2015, IMPRESSION: Normal Persantine stress and resting myocardial perfusion study with normal left ventricular wall motion and ejection fraction. Chest CT 06/17/17 FINDINGS: LUNGS AND PLEURA: Trachea and mainstem bronchi are widely patent and normal in caliber. Mild, chronic thickening of bronchial venegas in both lungs. There is a nodule of mixed attenuation in the posterior right lung apex (image 114, series 4); the groundglass component, which measures approximately 1.1 cm, remains unchanged. The irregular, solid component, which measures approximately 0.6 x 0.9 cm, has slightly increased in size compared to 11/11/2016 and is definitely larger compared to 07/17/2015. There are old micronodular opacities and groundglass opacities in upper lobes that remain unchanged compared to 11/11/2016. There are new nodules in the right lung, as well. For example, a new, irregular nodular focus measuring approximately 0.4 x 0.8 cm present in the anterior right upper lobe (image 216, series 4). Multiple new clustered micronodules are present in the anterior segment of the right upper lobe near the level of the minor fissure. The largest new, irregular nodule in the lateral segment of the right lower lobe abuts the adjacent major fissure and is difficult to precisely measure given its irregular border and its juxtaposition to adjacent vessels and bronchi; it measures approximately 1.3 cm, and there are multiple other new nodules in the right lower lobe peripheral to this lesion. Chronic subsegmental atelectasis/scarring in the lingula adjacent to the major fissure. No pleural effusion or pneumothorax. MEDIASTINUM: Three-vessel coronary artery atherosclerotic calcification. Mild atherosclerosis of the thoracic aorta without aneurysm. Moderate-sized hiatal hernia. Thyroid gland is unremarkable. LYMPHATICS: No lymphadenopathy. UPPER ABDOMEN: Cholelithiasis. Again noted is mild fullness of the adrenal glands. No acute findings in the examined upper abdomen compared to 11/11/2016. SKELETAL AND CHEST WALL: No acute findings in the degenerated thoracic spine. No aggressive osseous lesions. IMPRESSION: 1. Compared to 11/11/2016, multiple new nodules are present in the right lung, highly suggestive of infectious bronchiolitis and bronchopneumonia. No associated pleural effusion or hilar lymphadenopathy. 2. There are old nodular foci in both lungs, as well, include a lesion of mixed attenuation in the posterior right lung apex. Whereas the groundglass component of this lesion has not appreciably changed, the irregular solid component continues to increase in size, which is suspicious for carcinoma. 3. Cholelithiasis. Disposition Summary Disposition Principal Diagnosis: Chest pain, unstable angina Coronary artery disease Acute kidney injury Hypotension COPD Pulmonary nodules Left facial abscess with MRSA on culture Additional Diagnosis: Coronary artery disease with RCA stent Hypertension Hyperlipidemia COPD Left below the knee amputation Discharge Disposition: home or self care Discharge Instructions General Discharge Information Code Status: Full Code Patient's Diet: Heart healthy diet Patient's Activity: As tolerated Follow-Up Instructions/Appts: You should follow up with your Dr. Marina and Dr. Blancas in the office. Your lisinopril was stopped pending repeat renal function tests on 06/23/17. This medication will probably need to be restarted at a lower dose. Please follow up with Dr. Alonzo for pulmonary nodules, a PET scan, and pulmonary function tests. You should also follow up with Dr. Ramirez (ears/nose/throat) for chronic hoarse voice and stop smoking. Medications at Discharge Discharge Medications: Stop taking the following medications: Lisinopril (Lisinopril) 40 MG TABLET ORAL DAILY Qty = 30 Sulfamethoxazole/Trimethoprim (Bactrim Ds Tablet) 800 MG-160 MG TABLET ORAL TWICE DAILY Qty = 20 Furosemide (Lasix) 20 MG TABLET ORAL Every other day Qty = 30 Continue taking these medications: Aspirin (Ecotrin*) 81 MG TABLET.DR 1 Tablet ORAL DAILY Comments: Last Taken: 06/20/17 Time: 9AM Oxycodone HCl (Oxycodone HCl) 15 MG TABLET 1 Tablet ORAL Q8H Qty = 84 Comments: Last Taken: 06/20/17 Time: 10:30AM Albuterol Sulfate (Proair Hfa) 8.5 GM HFA.AER.AD 2 Puff Inhale through mouth EVERY SIX HOURS as needed for COPD Qty = 4 Comments: NOT GIVEN IN HOSPITAL Atorvastatin Calcium (Atorvastatin Calcium) 40 MG TABLET 1 Capsule ORAL DAILY Qty = 90 Comments: Last Taken: 06/20/17 Time: 9AM Amlodipine Besylate (Norvasc) 10 MG TABLET 1 Capsule ORAL DAILY Qty = 60 Comments: NOT GIVEN IN THE HOSPITAL Tamsulosin HCl (Flomax) 0.4 MG CAP.ER.24H 0.4 Milligram ORAL DAILY Comments: NOT GIVEN IN THE HOSPITAL Omeprazole (Omeprazole) 40 MG CAPSULE.DR 1 Capsule ORAL DAILY Comments: Last Taken: 06/20/17 Time: 7AM Clopidogrel Bisulfate (Clopidogrel) 75 MG TABLET 1 Tablet ORAL DAILY Comments: Last Taken: 06/20/17 Time: 9AM Nitroglycerin (Nitrostat) 0.4 MG TAB.SUBL 1 Tablet SUBLINGUAL As Directed as needed for CHEST PAIN Qty = 25 Instructions: 1st sign of attack; may repeat every 5 minutes until relief; if pain persists after 3 tablets in 15 minutes, prompt medical att Comments: NOT GIVEN IN HOSPITAL. PT GIVEN NITRO PATCH Carvedilol (Carvedilol) 6.25 MG TABLET 1 Tablet ORAL TWICE DAILY Qty = 60 Comments: Last Taken: 06/20/17 Time: 9AM Start taking the following new medications: Nitroglycerin (Nitro-Dur) 0.4 MG/HOUR PATCH.TD24 1 Patch TRANSDERM DAILY Qty = 30 No Refills Instructions: . Comments: Last Taken: 06/20/17 Time: 9AM Copies To: Salas CORTES,Salas; Cheri CORTES,Owen Nicole; Yonny CORTES PHD,Zhang Nicole Attending MD Review Statement Documenting Attending: Yosvany CORTES,Joelle
[2017-06-20 09:00] VITALS: BP 136/84
--- NOTE | 2017-06-20 17:42 | PN- Cardiology ---
Subjective Subjective: * Chest discomfort has abated. * sinus rhythm * no ischemia on stress testing * creatinine 1.5 Objective Vital Signs and I&Os Vital Signs Date Time Temp Pulse Resp B/P B/P Pulse O2 O2 Flow FiO2 Mean Ox Delivery Rate 06/20 0900 71 136/84 06/20 0858 71 136/84 06/20 0800 Room Air 06/20 0655 98.7 71 20 124/66 95 Room Air 06/19 2233 98.1 70 20 118/60 96 Room Air 06/19 2128 74 Intake & Output 06/20 1600 06/20 0000 06/19 1600 06/19 0806/19 0000 Intake Total 1070 452.5 1046.8 Output Total 325 650 446 348 6827 Balance 745 -650 -675 -447.5 -453.2 Intake, IV 670 192.5 126.8 Intake, Oral 400 260 920 Output, Urine 325 650 232 [id number] [id number] Patient 216 lb 217 lb Weight Weight Bed scale Measurement Method Physical Exam: General: WD/WN male in NAD; alert and oriented x 3 HEENT: NC/AT, PERRL, EOMI Neck: no JVD, no carotid bruit Heart: RRR with 3/6 systolic murmur Lungs: clear bilaterally Abdomen: soft, NT, +ve bowel sounds Extremities: no edema, Left BKA Assessment/Plan Assessment/Plan * This patient has symptoms that are suggestive of myocardial ischemia although with some atypical features. Despite almost unremitting chest pain he does not demonstrate any rise in cardiac enzymes or electrocardiographic changes. In addition, his pain tends to be pleuritic and exacerbated by deep inhalation. His stress test is negative for ischemia. I do not think this patient has myocardial ischemia and alternate causes of chest pain should be investigated. We will pursue medical therapy for now including a NTG patch at 0.4mg/hr, aspirin and Plavix. Continue Carvedilol and a statin. * This patient had an acute rise in creatinine but it is improving. Avoid NSAIDs and hold Lisinopril. If Lisinopril is restarted it will need to be given at a lower dose. Continue to hold Lasix. * Okay for discharge from a cardiac standpoint with follow up in the office in a week. Continue telemetry? No
== END 2017-06-20 12:30 | DRG 303 ==
LOC: ERH 17:26 → 1NO 20:32 → ERHI 20:32 → ENRESERV 22:33 → 1NO 23:57 → ENPENDDIS 06-20 10:00 → ENTRNSPT 06-20 12:17 → EDTRNSPT 06-20 12:25 → EDTRNSPTSTS 06-20 12:25 → 1NO 06-20 12:30 → CMPTRNSPT 06-20 12:46
PROVIDERS: Emergency Medicine; Internal Medicine; Internal Medicine Hematology & Oncology; Physician Assistant Medical; Student in an Organized Health Care Education/Training Program
DX: I25.110 Atherosclerotic heart disease of native coronary artery with unstable angina pectoris (principal); N17.9 Acute kidney failure, unspecified; I95.9 Hypotension, unspecified; J44.9 Chronic obstructive pulmonary disease, unspecified; E86.0 Dehydration; R00.0 Tachycardia, unspecified; F17.210 Nicotine dependence, cigarettes, uncomplicated; Z98.61 Coronary angioplasty status; I10 Essential (primary) hypertension; E78.5 Hyperlipidemia, unspecified; Z89.512 Acquired absence of left leg below knee; Z79.82 Long term (current) use of aspirin; Z79.891 Long term (current) use of opiate analgesic; Z79.51 Long term (current) use of inhaled steroids; Z96.641 Presence of right artificial hip joint
CPT/HCPCS: 1NP; ERO; 36592; 73502-RT; 78452; 81001; 82436; 87040; 87070; 87086; 87449; 87450; 93005; 93010; 93016; 93017; 93306; A9502; J1245; J1642; J1644; J3490; J7040